=== PATIENT | female | born 1950 | race Caucasian/White ===

== ENCOUNTER 2017-03-01 01:03 | Inpatient (IN) | payer MEDICARE ==
[2017-03-01 01:18] VITALS: BMI 23.8
--- NOTE | 2017-03-01 01:49 | ED PDOC ---
Arrival/HPI - General Time Seen by Provider: 03/01/17 01:37 Historian: Family (Daughter) - Critical Care Critical Care Minutes: 30 minutes - History of Present Illness Narrative History of Present Illness (Text): 03/01/17 01:37 Irene Marcelo is a 66 year old female, whose past medical history includes colon cancer, hypertension, and thyroid surgery, who presents to the emergency department complaining of black stool since this afternoon. According to patient 's daughter, patient had an abdominal surgery at [facility] on and was transferred to a retirement rehab 3 days ago. Patient's daughter says yesterday, patient had a temperature of 103 and earlier today, patient continued to gave chills and started having melanic stools. The patient reports having no appetite but denies any vomiting or abdominal pain. At present, patient feels very weak and short of breath. Time/Duration: 24 hours Symptom Onset: Gradual Symptom Course: Unchanged Severity Level: Mild Activities at Onset: Rest Context: Other (care home) Past Medical History - Provider Review Nursing Documentation Reviewed: Yes Family/Social History - Physician Review Nursing Documentation Reviewed: Yes Family/Social History: No Known Family HX Allergies/Home Meds Allergies/Adverse Reactions: Allergies No Known Allergies Allergy (Verified 03/01/17 01:18) Review of Systems - Physician Review All systems were reviewed & negative as marked: Yes - Review of Systems Constitutional: Fevers, Night Sweats, Other (Generalized weakness) Eyes: absent: Vision Changes ENT: absent: Hearing Changes Respiratory: SOB Cardiovascular: absent: Chest Pain Gastrointestinal: Stool Changes (Black stool), Appetite Changes (No appetite). absent: Abdominal Pain, Vomiting Genitourinary Female: Other (Castro in place). absent: Urine Output Changes Musculoskeletal: absent: Arthralgias, Back Pain, Neck Pain Skin: absent: Rash Neurological: absent: Headache, Dizziness Endocrine: absent: Diaphoresis Hemo/Lymphatic: absent: Adenopathy Psychiatric: absent: Depression Physical Exam Vital Signs Reviewed: Yes Vital Signs Temp Pulse Resp BP Pulse Ox 03/01/17 05:35 98.2 F 104 H 18 117/70 03/01/17 05:05 98.3 F 107 H 18 129/64 03/01/17 04:50 99.2 F 109 H 18 132/69 03/01/17 03:47 102.2 F H 06/16/17 01:41 102.2 F H 139 H 20 84/48 L 100 03/01/17 01:04 98.8 F 139 H 20 82/48 L 100 Temperature: Febrile Blood Pressure: Hypotensive Pulse: Tachycardic Respiratory Rate: Tachypneic Appearance: Positive for: Ill-Appearing (Toxic) Mental Status: Positive for: Alert and Oriented X 3 - Systems Exam Head: Present: Atraumatic, Normocephalic Pupils: Present: PERRL Conjunctiva: Present: Other (Pale conjunctiva) Mouth: Present: Dry (oral mucous) Pharnyx: Present: Normal. No: ERYTHEMA Neck: Present: Normal Range of Motion Respiratory/Chest: Present: Decreased Breath Sounds (Decreased breath sounds on right), Other (JESENIA drain from Right thoracic or ? upper abd cavity; port in place ) Cardiovascular: Present: Normal S1, S2, Tachycardic Abdomen: Present: Distention (mild), Scars (Midline Laparotomy scar, non-tender ). No: Tenderness Rectal: Present: Melena (significant amount of melanic stool) Upper Extremity: Present: Normal Inspection. No: Cyanosis, Edema Lower Extremity: Present: Normal Inspection. No: Edema Neurological: Present: GCS=15, CN II-XII Intact, Speech Normal Skin: Present: Warm, Dry, Normal Color. No: Rashes Psychiatric: Present: Alert Medical Decision Making ED Course and Treatment: 03/01/17 01:37 Impression: 66 year old female complaining of black stool since this afternoon. Differential Diagnosis included but are not limited to: Sepsis due to Pneumonia vs. Intra-abdominal infection vs. UTI; GI Bleed is present Plan: -- EKG -- Chest X-ray -- Type and Screen -- VBG and Blood Culture -- Urinalysis and urine culture -- Vancomycin, Zosyn, and IV Fluids -- Reassess and disposition Progress Notes: 03/01/17 01:37 Rectal exam performed, with female scribe Jordana Anderson present, which resulted guaiac positive black stools. Significant amounts of melanic stool is coming out. 03/01/17 02:46 Reviewed radiology, chest x-ray shows elevated right hemidiaphragm. 03/01/17 03:56 Code Sepsis called with lactic acid of 2.1 03/01/17 06:28 Patient with noted history with sepsis and melena present, consistent with significant GI Bleed. Patient hypotensive upon my initial evaluation at 70/30; responded to IVF; BP stabilized after 2 liters of IVF; type and cross ordered; patient's daughter signed consent for transfusion. Labs with leukocytosis of 16.9 and initial Hgb of 9.1; INR is 1.37; BUN/Cr are 56/2.0. Patient started on broad spectrum abx for sepsis. Case was discussed with Dr. Vega for admission to Dr. Barton's service. Consult placed for Dr. Fernandez, with whom the case was discussed. Case discussed with Dr. Guaman, flying instructor, who accepted the patient for ICU admission. 03/01/17 06:34 CT a/p done; results to be followed by ICU. - Critical Care Critical Care Minutes: 45 minutes - Lab Interpretations Lab Results: 03/01/17 01:30 03/01/17 01:30 Lab Results 03/01/17 03:07: Blood Type Confirm A POSITIVE 03/01/17 01:53: Blood Type A POSITIVE, Antibody Screen Negative, Crossmatch See Detail, BBK History Checked No verified bt 03/01/17 01:30: Sodium 138, Chloride 107, Potassium 4.9, Carbon Dioxide 18 L, Anion Gap 18, BUN 56 H, Creatinine 2.0 H, Est GFR ( Amer) 30, Est GFR ( Non-Af Amer) 25, Random Glucose 114 H, Calcium 6.3 L*, Phosphorus 4.0, Magnesium 2.0, Total Bilirubin 0.9, AST 46 H, ALT 32, Alkaline Phosphatase 237 H , Lactate Dehydrogenase 772 H, Total Creatine Kinase 55, Troponin I 0.15 H*, NT- Pro-B Natriuret Pep 748 H, Total Protein 6.8, Albumin 3.0, Globulin 3.8, Albumin /Globulin Ratio 0.8 L, Plasma Cortisol PM Pending 03/01/17 01:30: pO2 79 H, VBG pH 7.36, VBG pCO2 32.0 L, VBG HCO3 18.1 L, VBG Total CO2 19.1 L, VBG O2 Sat (Calc) 97.6 H, VBG Base Excess -6.3 L, VBG Potassium 4.7, Sodium 136.0, Chloride 111.0 H, Glucose 120 H, Lactate 2.1, FiO2 21.0, Venous Blood Potassium 4.7 03/01/17 01:30: PT 14.8 H, INR 1.37 H, APTT 45.0 H 03/01/17 01:30: WBC 16.9 H, RBC 3.05 L, Hgb 9.1 L, Hct 27.6 L, MCV 90.5, MCH 29.8, MCHC 33.0, RDW 19.9 H, Plt Count 229, MPV 10.1, Gran % 89.9 H, Lymph % ( Auto) 6.7 L, Blackford % (Auto) 3.2, Eos % (Auto) 0.1 L, Baso % (Auto) 0.1, Gran # 15.18 H, Lymph # 1.1 L, Blackford # 0.5, Eos # 0.0, Baso # 0.01, ESR 62 H I have reviewed the lab results: Yes - RAD Interpretation Radiology Orders: 03/01/17 01:51 CHEST PORTABLE [RAD] Stat 03/01/17 04:02 ABD & PELVIS W/O PO OR IV CONT [CT] Stat - Medication Orders Current Medication Orders: Acetaminophen (Tylenol 325mg Tab) 650 mg PO Q4 PRN PRN Reason: Fever >100.4 F Pantoprazole Sodium (Protonix 40mg Ivpb) 40 mg in 100 mls @ 20 mls/hr IV .Q5H JEAN CARLOS PRN Reason: 8 MG/HR Levothyroxine Sodium (Synthroid) 67.5 mcg IVP DAILY JEAN CARLOS Discontinued Medications Acetaminophen (Tylenol 325mg Tab) 975 mg PO STAT STA Stop: 03/01/17 02:41 Last Admin: 03/01/17 03:47 Dose: Not Given Non-Admin Reason: Patient Refused Acetaminophen (Tylenol 160mg/5ml Oral Soln) Confirm Administered Dose 480 mg .ROUTE .STK-MED ONE Stop: 03/01/17 03:01 Last Admin: 03/01/17 03:48 Dose: 480 mg Acetaminophen (Tylenol 160mg/5ml Oral Soln) Confirm Administered Dose 480 mg .ROUTE .STK-MED ONE Stop: 03/01/17 03:02 Last Admin: 03/01/17 03:48 Dose: Sodium Chloride 2,070 ml/ IV (SUPPLIES) 2,070 mls @ 4,136.76 mls/hr IV ONCE ONE PRN Reason: 60 ML/KG/HR Stop: 03/01/17 01:52 Last Admin: 03/01/17 02:41 Dose: 4,136.76 mls/hr Vancomycin HCl (Vancomycin 1gm) 1 gm in 250 mls @ 133.333 mls/hr IVPB STAT STA PRN Reason: Protocol Stop: 03/01/17 03:47 Last Admin: 03/01/17 02:42 Dose: 133.333 mls/hr Piperacillin Sod/Tazobactam Sod (Zosyn 3.375 In Ns 100ml) 100 mls @ 200 mls/hr IVPB STAT STA PRN Reason: Protocol Stop: 03/01/17 02:22 Last Admin: 03/01/17 02:00 Dose: 200 mls/hr Pantoprazole Sodium 80 mg/ (Sodium Chloride) 100 mls @ 10 mls/hr IV .Q10H JEAN CARLOS PRN Reason: 8 MG/HR Last Admin: 03/01/17 04:15 Dose: 10 mls/hr Pantoprazole Sodium 40 mg/ (Sodium Chloride) 100 mls @ 20 mls/hr IV .Q10H JEAN CARLOS PRN Reason: 8 MG/HR Pantoprazole Sodium (Protonix Inj) 80 mg IVP STAT STA Stop: 03/01/17 04:03 Last Admin: 03/01/17 04:15 Dose: 80 mg Pantoprazole Sodium (Protonix Inj) Confirm Administered Dose 80 mg .ROUTE .STK- MED ONE Stop: 03/01/17 04:08 Last Admin: 03/01/17 05:03 Dose: - Scribe Statement The provider has reviewed the documentation as recorded by the Martin Anderson Provider Scribe Attestation: All medical record entries made by the lAlyibfrancheska were at my direction and personally dictated by me. I have reviewed the chart and agree that the record accurately reflects my personal performance of the history, physical exam, medical decision making, and the department course for this patient. I have also personally directed, reviewed, and agree with the discharge instructions and disposition. Disposition/Present on Arrival - Present on Arrival Any Indicators Present on Arrival: No - Disposition Have Diagnosis and Disposition been Completed?: Yes Diagnosis: Sepsis, GI bleed Disposition: HOSPITALIZED Disposition Time: 04:15 Patient Plan: Admission, ICU Patient Problems: Current Active Problems Problem Status Onset GI bleed Acute Sepsis Acute Condition: CRITICAL
[2017-03-01] MEDS ORDERED: Piperacillin/Tazobact 3.375 gm 100 ML IVPB STA (01:53)
[2017-03-01] MEDS ORDERED: Vancomycin 1gm in NS 250ml 1 GM/250 ML BAG IVPB STA (01:55)
[2017-03-01 02:13] LABS: ADD MANUAL DIFF? NO
[2017-03-01 02:19] LABS: VENOUS BLOOD GAS BASE EXCESS -6.3 mmol/L (0.0-2.0); VENOUS BLOOD PH 7.36 (7.32-7.43)
[2017-03-01 02:29] LABS: BASO # 0.01 K/mm3 (0.0-2.0); BASO % 0.1 % (0.0-3.0); EOS % 0.1 % (1.5-5.0); GRAN # 15.18 (1.4-6.5); GRAN % 89.9 % (50.0-68.0); HEMATOCRIT 27.6 % (36.0-48.0); LYMPH # 1.1 (1.2-3.4); LYMPH % 6.7 % (22.0-35.0); MEAN CELL VOLUME 90.5 fL (80.0-105.0); MEAN CORPUSCULAR HEMOGLOBIN 29.8 pg (25.0-35.0); MEAN PLATELET VOLUME 10.1 fl (7.0-11.0); MONO # 0.5 (0.1-0.6); MONO % 3.2 % (1.0-6.0); PLATELET COUNT 229 10^3/uL (120.0-450.0); RED CELL DISTRIBUTION WIDTH 19.9 % (11.5-14.5); WHITE BLOOD COUNT 16.9 10^3/ul (4.5-11.0)
[2017-03-01 02:39] LABS: INR 1.37 (0.93-1.08)
[2017-03-01 02:52] LABS: ALB/GLOB RATIO 0.8 (1.1-1.8); BILIRUBIN,TOTAL 0.9 mg/dL (0.2-1.3); POTASSIUM 4.9 mmol/L (3.6-5.0); TOTAL PROTEIN 6.8 g/dL (5.8-8.3)
[2017-03-01] MEDS ORDERED: Acetaminophen 160 mg/5 ml UD ONE (03:01)
[2017-03-01 03:30] LABS: CALCIUM 6.3 mg/dL (8.4-10.5)
[2017-03-01 03:37] LABS: ERYTHROCYTE SEDIMENTATION RATE 62 mm/hr (0.0-20.0)
[2017-03-01] MEDS: Acetaminophen 160 mg/5 ml UD ONE (03:48)
[2017-03-01 03:52] LABS: TROPONIN I 0.15 ng/mL
[2017-03-01] MEDS ORDERED: Pantoprazole 40 MG in Sodium Chloride 0.9% 100 ML IV SCH (04:15)
[2017-03-01] MEDS ORDERED: Pantoprazole 80 MG in Sodium Chloride 0.9% 100 ML IV SCH (04:15)
[2017-03-01] MEDS ORDERED: Pantoprazole 40mg/100ml IVPB 40 MG/100 ML BAG IV SCH (04:15)
--- NOTE | 2017-03-01 04:44 | CP.PCM.CON ---
<JessicaEliodanaLarry wallis - Last Filed: 03/01/17 04:40> History of Present Illness - History of Present Illness History of Present Illness: CC: Melanotic stools HPI: This is a 66yo F w/ a PMhx of Stage 4 Colon CA, originally diagnosed 10 years ago, s/p resection on February 08 for mets at [facility], presumed pleurex drainage catheter for recurrent pleural effusions, and indwelling jerez who is coming in for 2-3 episodes of melanotic stool associated with vomiting. Patient has felt feverish with concurrent chills for the past day, also short of breath just not feeling like herself. She is denying any ADRIAN, CP, abdominal pain, dysuria/freq/urg (has an indwelling catheter). Pmhx: Colon CA (unknown stage), Diverticulitis Surgeries: Colon Resection for Colon CA, knee replacements, on active chemotherapy unknown which ones Meds: unobtainable at this time FamHx: denies Social: prior cigarette smoker, denies EtOH, denies illicit drugs Allergies: denies Past Patient History - Past Social History Smoking Status: Former Smoker - CARDIAC Hx Cardiac Disorders: Yes Hx Hypertension: Yes - PULMONARY Hx Respiratory Disorders: No - NEUROLOGICAL Hx Neurological Disorder: No - HEENT Hx HEENT Problems: No - RENAL Hx Chronic Kidney Disease: No - ENDOCRINE/METABOLIC Other/Comment: Thyriod problem. Takes medicine for thyriod - HEMATOLOGICAL/ONCOLOGICAL Hx Cancer: Yes (Colon CA) Hx Chemotherapy: Yes - INTEGUMENTARY Hx Dermatological Problems: No - MUSCULOSKELETAL/RHEUMATOLOGICAL Hx Musculoskeletal Disorders: No - GENITOURINARY/GYNECOLOGICAL Hx Genitourinary Disorders: No - PSYCHIATRIC Hx Substance Use: No - SURGICAL HISTORY Hx Cholecystectomy: Yes Hx Joint Replacement: Yes - ANESTHESIA Hx Anesthesia Reactions: No Meds Allergies/Adverse Reactions: Allergies Allergy/AdvReac Type Severity Reaction Status Date / Time No Known Allergies Allergy Verified 03/01/17 01:18 - Medications Medications: Current Medications Pantoprazole Sodium (Protonix 40mg Ivpb) 40 mg in 100 mls @ 20 mls/hr IV .Q5H JEAN CARLOS PRN Reason: 8 MG/HR Physical Exam - Constitutional Appears: No Acute Distress - Head Exam Additional comments: balding - Eye Exam Eye Exam: EOMI, Normal appearance - ENT Exam ENT Exam: Mucous Membranes Dry. absent: Mucous Membranes Moist - Neck Exam Neck exam: Positive for: Full Rom. Negative for: Lymphadenopathy - Respiratory Exam Additional comments: crackles in b/l bases - Cardiovascular Exam Cardiovascular Exam: Tachycardia, REGULAR RHYTHM - GI/Abdominal Exam Additional comments: jitendra in the midline; pleurex catheter in place with 30cc of pleural fluid, no obvious signs of pus or infection - Rectal Exam Rectal Exam: Deferred - Extremities Exam Extremities exam: Positive for: pedal edema. Negative for: calf tenderness - Back Exam Back exam: absent: CVA tenderness (L), CVA tenderness (R) - Neurological Exam Neurological exam: Alert, Oriented x3 - Psychiatric Exam Psychiatric exam: Normal Affect - Skin Skin Exam: Intact Results - Vital Signs Recent Vital Signs: Last Vital Signs Temp 102.2 F H 03/01/17 03:47 Pulse 139 H 03/01/17 01:41 Resp 20 03/01/17 01:41 BP 84/48 L 03/01/17 01:41 Pulse Ox 100 03/01/17 01:41 - Labs Result Diagrams: 03/01/17 01:30 03/01/17 01:30 Assessment & Plan - Assessment and Plan (Free Text) Assessment: 66yo F admitted to the ICU for Severe Sepsis w/ Multiple Organ Dysfunction 2/2 to unknown Infection Neuro -no active issues; patient is ANOx3 and responding appropriately to questions -no obvious neurological deficits Pulm -maintain O2 sat above 90%; patient not complaining of SOB -Chest X-ray clear; posisble Pleurex catheter in place for drainage of pleural fluid Cardio -Maintain MAP above 65 -patient responded to 2L of NS bolus -bump in troponin most likely 2/2 to demand ischemia Renal -presumed LONG 2/2 to sepsis/dehydration -rehydration -patient is making adequate urine; dark/cloudy in color; f/u UA; f/u CMP GI -Rectal exam revealed +guiac, patient complaining of melena -two PRBC ordered; CBC Q6H -On Protonix Drip -GI consult; Jim; appreciate recs Heme -HbG currently 9.1; unknown baseline -will monitor CBC Q6H ID -received Vanc and Zosyn in ED; will continue -ID consult; Dr. Banks for continued antibiotics Psych No Active issues Case discussed and seen with Dr. Deniz Felipe PGY1 Night Float <Alonso Guaman Q - Last Filed: 03/01/17 05:14> Meds - Medications Medications: Current Medications Acetaminophen (Tylenol 325mg Tab) 650 mg PO Q4 PRN PRN Reason: Fever >100.4 F Pantoprazole Sodium (Protonix 40mg Ivpb) 40 mg in 100 mls @ 20 mls/hr IV .Q5H JEAN CARLOS PRN Reason: 8 MG/HR Levothyroxine Sodium (Synthroid) 67.5 mcg IVP DAILY JEAN CARLOS Results - Vital Signs Recent Vital Signs: Last Vital Signs Temp 99.2 F 03/01/17 04:50 Pulse 109 H 03/01/17 04:50 Resp 18 03/01/17 04:50 BP 132/69 03/01/17 04:50 Pulse Ox 100 03/01/17 01:41 - Labs Result Diagrams: 03/01/17 01:30 03/01/17 01:30 Attending/Attestation - Attestation I have personally seen and examined this patient.: Yes I have fully participated in the care of the patient.: Yes I have reviewed all pertinent clinical information: Yes Notes (Text): 03/01/17 05:08 I agree with the above mentioned note and exam by Dr. Whitehead with the addition/ exception of the followin y.o female with a PMHx Colon Ca (initially dx'ed and treated with chemo and surgery 10yrs ago) was brought to the ED from [facility] re[facility] for an episode of melena. As per my conversation with the patient's daughter Tomasa, she reports that her mother underwent removal of a "mass on the liver" which was reported to her as a recurrence of her colon cancer on 02/05. At that time she also had removal of the gallbladder, part of the liver as well as a partial colectomy with end-to-end anastamoses. She remained in the hospital until 02/23 when she was transferred to a [facility] facility. The daughter reports it is there where her mother began experiencing fevers and chills along with loose watery bowel movements along with episodes of NBNB vomiting x 3 days. Last night is when she had an episode of dark black stool so she was brought to the ED here at [facility] as opposed to where she was previously because her daughter felt more comfortable having her brought here. In the ED she is found to have severe sepsis, she is responsive to IVF; she is kept NPO and will be further worked up for her dark stool. ED Physician has already ordered 2 units of PRBC, she will stay on a protonix drip and be evaluated by GI for further management. She has severe sepsis with multi-organ involvement, however the exact source of her sepsis has not been identified at this time; I susect acute cystitis due to dark brown cloudy urine present within her jerez catheter bag, however I will also follow up the results of the CT Abd/Pelvis to evaluate for any further possible causes. Case discussed with her daughter Tomasa and Dr. Best in the ED at length all labs and images available to myself thus far have been reviewed total time of care: 45 minutes
[2017-03-01 05:16] LABS: VENOUS BLOOD GAS BASE EXCESS -7.8 mmol/L (0.0-2.0); VENOUS BLOOD PH 7.32 (7.32-7.43)
[2017-03-01 06:52] LABS: URINE BILIRUBIN NEGATIVE (NEGATIVE); URINE BLOOD LARGE (NEGATIVE); URINE KETONE TRACE mg/dL (NEGATIVE); URINE LEUKOCYTE ESTERASE LARGE Leu/uL (NEGATIVE); URINE PROTEIN 100 mg/dL (<30 mg/dL); URINE UROBILINOGEN 0.2 E.U./dL (<1 E.U./dL)
--- NOTE | 2017-03-01 06:55 | CT ---
EXAM: CT Abdomen and Pelvis Without Intravenous Contrast CLINICAL HISTORY: 66 years old, female; Signs and symptoms; Other: Black stool; Prior surgery; Additional info: Sepsis; Post op abd surgery TECHNIQUE: Axial computed tomography images of the abdomen and pelvis without intravenous contrast. This CT exam was performed using one or more of the following dose reduction techniques: automated exposure control, adjustment of the mA and/or kV according to patient size, and/or use of iterative reconstruction technique. Coronal and sagittal reformatted images were created and reviewed. EXAM DATE/TIME: 03/01/2017 4:02 AM COMPARISON: No relevant prior studies available. FINDINGS: Cardiomegaly. Pericardial effusion measuring 10 mm. Trace bilateral pleural effusions. Right lower lung consolidation. Heterogeneous air collection in the hepatic dome. A percutaneous pigtail catheter enters the collection. There is a faint 1.2 cm hypoattenuating right renal lesion probable cyst. Fullness of the left kidney. No definite obstructing calculi are identified although motion and haziness in the deep pelvis makes it slightly difficult to visualize the very distal left ureter. There are numerous pelvic phleboliths. Castro catheter. Air in urinary bladder. Midline skin jitendra stranding the underlying fat. Surgical sutures within bowel loops in the right abdomen and deep pelvis. Small hyperdensity in the gastric lumen possible pill or calcification. Small bowel herniated between the abdominis rectus muscles. No bowel obstruction. Fluid within multiple small bowel loops and within portions of the colon which could be incidental finding although can also be associated with an enteritis/diarrhea The spleen and pancreas appear grossly normal on this non-contrast study. IMPRESSION: Cardiomegaly and pericardial effusion. Right lower lung consolidation. Percutaneous catheter entering heterogeneous air collection in the liver. Evidence of bowel surgery. Fluid in the bowel as discussed above. Fullness of the left kidney. Correlation with urinalysis may be helpful to exclude infectious/inflammatory process. Please note that there are no prior studies or prior reports provided.
[2017-03-01 07:03] LABS: URINE APPEARANCE CLOUDY (CLEAR); URINE COLOR YELLOW (YELLOW)
[2017-03-01 07:04] LABS: URINE BACTERIA MOD (NEG); URINE GLUCOSE (UA) NEGATIVE (NEGATIVE); URINE WBC 15 - 20 /hpf (0-6)
[2017-03-01] MEDS ORDERED: Piperacillin/Tazobact 3.375 gm 100 ML IVPB SCH (08:00)
[2017-03-01] MEDS ORDERED: Meropenem 1g/NS 100mL IVPB 1 GM/100 ML PIGGYBACK IVPB SCH (08:30)
--- NOTE | 2017-03-01 09:15 | RAD ---
HISTORY: Sepsis Patient COMPARISON: No prior. FINDINGS: LUNGS: No active pulmonary disease. PLEURA: No significant pleural effusion identified, no pneumothorax apparent. CARDIOVASCULAR: Normal. OSSEOUS STRUCTURES: No significant abnormalities. VISUALIZED UPPER ABDOMEN: Normal. OTHER FINDINGS: Right-sided Port-A-Cath. Pigtail catheter at right lung base IMPRESSION: No active disease.
[2017-03-01 09:31] LABS: HEMATOCRIT 26.5 % (36.0-48.0); MEAN CELL VOLUME 89.5 fL (80.0-105.0); MEAN CORPUSCULAR HEMOGLOBIN 29.1 pg (25.0-35.0); MEAN CORPUSCULAR HGB CONC 32.5 g/dl (31.0-37.0); MEAN PLATELET VOLUME 9.2 fl (7.0-11.0); RED CELL DISTRIBUTION WIDTH 18.4 % (11.5-14.5); WHITE BLOOD COUNT 13.6 10^3/ul (4.5-11.0)
[2017-03-01] MEDS: Levothyroxine 100 mcg (0.1 mg) Inj IVP SCH (10:06)
--- NOTE | 2017-03-01 10:28 | HP ---
HISTORY OF PRESENT ILLNESS: I was called on her with dark stools, sent to the Emergency Room. She w as just in [facility] for colon resection for colon cancer and she is status post surgery, n ow we are worried about a GI bleed. She had a 103 temperature a few days ago with chills and now wit h bloody stools, melena. PAST MEDICAL HISTORY: She has a past medical history that includes colon cancer, hypertension, thyro id disease. She is very weak. She appears septic at this time. She was diagnosed with colon cancer about 10 years ago. She had a resection on 02/08/2017 at [facility]. PleurX drainage catheter for recur rent pleural effusions. She has an indwelling Castro, black stools, some nauseousness and vomiting. Colon cancer, diverticulitis. PAST SURGICAL HISTORY: Colon resection, knee replacements, she is on active chemotherapy. SOCIAL HISTORY: She used to smoke cigarettes. No alcohol, no drugs, no allergies. She is a former smoker. She had hypertension in the past. MEDICATIONS: She takes Synthroid for thyroid problems. She is on chemotherapy. Cholecystectomy and knee replacements. ALLERGIES: No known drug allergies. REVIEW OF SYSTEMS: She is having fevers, night sweats. She was on antibiotics in the custodial. No changes in vision or hearing. There is shortness of breath, occasional cough. No chest pain. T he stools started black about 24 hours ago. She has very little appetite. No abdominal pain. Castro is in place. She is comfortable with no back pain or joint pains. No rashes. No headaches or dizz iness. There is sweating. Not depressed. Not anxious. PHYSICAL EXAMINATION: VITAL SIGNS: She has a 102.2 temp, 139 pulse, 20 respiratory rate, 84/48 blood pressure, 100% O2 sat on oxygen. GENERAL: She is febrile, hypotensive, tachycardic, ill appearing, toxic, alert and oriented x 3. HEENT: Head is atraumatic, normocephalic. Pupils equal, reactive to light. Throat is dry. NECK: Supple. HEART: Regular rate. Normal S1, S2. LUNGS: Decreased breath sounds bilaterally. Some congestion, decreased breath sounds. ABDOMEN: Mildly distended. There are scars; laparotomy scars. Decreased bowel sounds. Stools with out melena. EXTREMITIES: Have no edema. NEUROLOGIC: GCS is 15. Cranial nerves II-XII grossly intact. SKIN: Warm and dry. NEUROLOGIC: She is alert. No palpable lymphadenopathy appreciated. Thyroid midline. LABORATORY DATA: She had multiple tests done. She had a CAT scan of the abdomen and pelvis that navya wed cardiomegaly, pericardial effusion, right lower lung consolidation, percutaneous catheter, eviden ce of bowel surgery, fullness of the kidney, possible infection. She has a 16.9 white count, 9.1 hem oglobin, 27.6 hematocrit with 229 platelets. INR is 1.37. She has a pH of 7.32, 138 sodium, potassi um 4.9, BUN 56, creatinine 2, GFR is 25, calcium 6.3. Sugar is 114, phosphorus is 4, magnesium 2. T otal bili is 0.9, AST is 46, alkaline phosphatase 237. Troponin is elevated at 0.15. BNP is 748. T otal protein 6.8. Urine is large leukocytes, moderate bacteria. ASSESSMENT AND PLAN: She has multiple issues, GI bleed, positive troponin, UTI, status post colon viveros rgery for cancer. She is very weak. I believe she is possibly septic. We will call in infectious d isease, cardiology, GI, might also call in pulmonary. She is in the intensive care unit. We will be very aggressive with her care. Check her labs tomorrow, IV antibiotics, watch to see if she might n eed a transfusion. Wily Barton DO cc: [id number] TT: 03/01/2017 10:27:35 sherman
--- NOTE | 2017-03-01 11:25 | CON ---
DATE: 03/01/2017 REASON FOR CONSULTATION: Abnormal CAT scan. REFERRING PHYSICIAN: Dr. Barton. History is obtained via extensive discussion with the ICU nurse. I have also reviewed the chart at length, and discussed the case with the patient at length. The patient is a 66-year-old female with past medical history significant for advanced/stage IV colon cancer, status post extensive surgery at [facility] on for metastatic disease(the patient had removal of a liver metastasis, removal of her gallbladder, and partial colectomy), right pleural effusion, status post multiple drainage procedures, who presents to [facility] with fevers and chills, along with nausea and vomiting and loose watery bowel movements for the past day. The patient's stool was also noted to be melanotic in nature. She was thus admitted for additional evaluation and treatment. Again, I did discuss the case with the ICU nurse at length. There is no history of significant shortness of breath, cough, or sputum production. There is also no history of chest pain, coughing up of blood or chest pain - made worse with deep respirations. As stated above, the patient did present with fevers and chills. No known infectious exposure. No history of night sweats. The patient has a history of weight loss with decreased appetite as of recent. No history of leg or calf pains. No history of syncope or diaphoresis. No history of recent travel or trauma. REVIEW OF SYSTEMS: No acute urinary symptoms. No new musculoskeletal complaints. Rest of review of systems is negative. ALLERGIES: No known allergies. SOCIAL HISTORY: Positive for tobacco, negative for alcohol. FAMILY HISTORY: No inheritable diseases. HOME MEDICATIONS: Not listed in the computer at the present time. PHYSICAL EXAMINATION: GENERAL: The patient appears comfortable at rest. She is not short of breath. VITAL SIGNS: Temperature is 98.2, pulse 97, respirations 19, blood pressure 95/ 49. T-max - 102.2. Oxygen saturation--nasal canula--100%. HEENT: Normocephalic, atraumatic. NECK: No JVD. CARDIOVASCULAR: Positive S1, S2. No S3. LUNGS: Decreased breath sounds at the bases. No rhonchi or wheezing. EXTREMITIES: Mild edema. No cyanosis, no clubbing. Calves are nontender to palpation. GASTROINTESTINAL: The patient is status post extensive abdominal surgery. There is a liver drain in place. There are jitendra in place. The patient's abdomen is slightly distended, but nontender to palpation. Bowel sounds are positive. SKIN: No acute rash. NEUROLOGIC: Limited at the present time. PERTINENT LABORATORY DATA: Abdominal and pelvic CAT scan was done and reviewed. There is a small right basal consolidation consistent with atelectasis. There are also very small bilateral pleural effusions. Chest x- ray was also done. There is minimal atelectasis(linear) noted at the right base. There are no significant effusions noted. Complete metabolic profile: Carbon dioxide 18, BUN 56, creatinine 2.0, glucose 114, calcium 6.3. AST 46, alkaline phosphatase 237. LDH 772. Troponin 0.15. B-type natriuretic peptide 748. Rest of the metabolic profile is within normal limits. CBC: White count 16.9, hemoglobin 9.1, hematocrit 27.6, platelets of 229. IMPRESSION: 1. Sepsis syndrome. 2. Gastrointestinal bleeding. 3. Advanced, stage IV colon cancer. 4. Status post recent extensive surgery at [facility]. 5. Minimal atelectasis - right base. 6. Small bilateral pleural effusions. 7. Anemia. 8. Renal insufficiency. PLAN: Again, I did discuss the case with the ICU nurse at length. I have also reviewed the chart at length, and discussed the case with the patient at length. The patient presents to [facility] - transferred from the subacute rehab institution - with main complaints of fevers and chills, along with nausea, vomiting and loose stools for the past day. As above, the stools are melanotic in nature. As above, the patient is status post extensive surgery at [facility] on 02/08/2017 - where she had removal of a liver metastasis, removal of her gallbladder, and partial colectomy. At this point in time, there are no significant pulmonary symptoms. I did review the CAT scan of the lower chest/ abdomen. There is a minimal consolidation at the right base most consistent with atelectasis. There are also small bilateral pleural effusions noted. The patient does have a history of repeated drainage procedures of the right pleural cavity. On physical exam, there is no significant bronchospasm noted. In addition, there is no significant alveolar arterial gradient. Oxygen saturation on nasal cannula is 100%. I will order incentive spirometry, as well as aspiration precautions. I will also check a repeat chest x-ray - tomorrow - for comparison. Consultations for infectious disease, GI, and cardiology are ordered. I would also consider a surgical evaluation at this point in time - given the recent proximity to her extensive surgery. Bleeding scan has also been ordered. Unfortunately, the overall status/prognosis for this patient is very guarded/ poor. I did discuss the above with Dr. Barton at length. I will also discuss the above with the entire ICU team in the next few moments. Thank you very much for this pulmonary consultation. Ciaran Whelan MD cc: [id number] TT: 03/01/2017 11:25:12 Confirmation # [id number] Dictation # [id number] mn [id number]
--- NOTE | 2017-03-01 11:33 | CP.PCM.CON ---
History of Present Illness - History of Present Illness History of Present Illness: 66 year old female with PMH of stage 4 colon cancer, S/P colon resection at [facility] Feb 08 2017, probable recurrent pleural effusions S/P pleurex catheter placement, indwelling Castro catheter, history of diverticulitis was brought in to [facility] because of melanotic stools for the past 2-3 days associated with nausea and vomiting.. She was recently in [facility] for treatment of colon cancer and had surgery as detailed above. She also was noted to have fever in the ED. CT abdomen and pelvis was done in the ED which showed possible enteritis and colitis and right lower lobe consolidation. The patient denies headache or dizziness, no chest pain, no SOB, no diarrhea, no dysuria. Infectious diseases consult is requested to further evaluate and manage. Review of Systems - Review of Systems All systems: reviewed and no additional remarkable complaints except (as per HPI ) Past Patient History - Past Social History Smoking Status: Former Smoker - CARDIAC Hx Cardiac Disorders: Yes Hx Hypertension: Yes - PULMONARY Hx Respiratory Disorders: No - NEUROLOGICAL Hx Neurological Disorder: No - HEENT Hx HEENT Problems: No - RENAL Hx Chronic Kidney Disease: No - ENDOCRINE/METABOLIC Other/Comment: Thyriod problem. Takes medicine for thyriod - HEMATOLOGICAL/ONCOLOGICAL Hx Cancer: Yes (Colon CA) Hx Chemotherapy: Yes - INTEGUMENTARY Hx Dermatological Problems: No - MUSCULOSKELETAL/RHEUMATOLOGICAL Hx Musculoskeletal Disorders: No - GENITOURINARY/GYNECOLOGICAL Hx Genitourinary Disorders: No - PSYCHIATRIC Hx Substance Use: No - SURGICAL HISTORY Hx Cholecystectomy: Yes Hx Joint Replacement: Yes - ANESTHESIA Hx Anesthesia Reactions: No Meds Allergies/Adverse Reactions: Allergies Allergy/AdvReac Type Severity Reaction Status Date / Time No Known Allergies Allergy Verified 03/01/17 01:18 - Medications Medications: Current Medications Acetaminophen (Tylenol 325mg Tab) 650 mg PO Q4 PRN PRN Reason: Fever >100.4 F Pantoprazole Sodium (Protonix 40mg Ivpb) 40 mg in 100 mls @ 20 mls/hr IV .Q5H JEAN CARLOS PRN Reason: 8 MG/HR Piperacillin Sod/Tazobactam Sod (Zosyn 3.375 In Ns 100ml) 100 mls @ 200 mls/hr IVPB Q8H JEAN CARLOS PRN Reason: Protocol Stop: 03/01/17 16:29 Levothyroxine Sodium (Synthroid) 67.5 mcg IVP DAILY JEAN CARLOS Physical Exam - Constitutional Appears: Chronically Ill - ENT Exam ENT Exam: Mucous Membranes Moist - Neck Exam Neck exam: Negative for: Lymphadenopathy, Meningismus - Respiratory Exam Respiratory Exam: Decreased Breath Sounds - Cardiovascular Exam Cardiovascular Exam: +S1, +S2 - GI/Abdominal Exam GI & Abdominal Exam: Soft. absent: Tenderness Results - Vital Signs Recent Vital Signs: Last Vital Signs Temp 98.3 F 03/01/17 05:51 Pulse 105 H 03/01/17 05:51 Resp 16 03/01/17 05:51 BP 97/48 L 03/01/17 05:51 Pulse Ox 100 03/01/17 05:51 - Labs Result Diagrams: 03/01/17 09:18 03/01/17 01:30 Labs: Laboratory Results - last 24 hr 03/01/17 03/01/17 04:48 06:20 pO2 161 H VBG pH 7.32 VBG pCO2 34.0 L VBG HCO3 17.5 L VBG Total CO2 18.5 L VBG O2 Sat (Calc) 100.0 H VBG Base Excess -7.8 L VBG Potassium 4.5 Sodium 138.0 Chloride 116.0 H Glucose 138 H Lactate 1.1 FiO2 21.0 Venous Blood Potassium 4.5 Urine Color Yellow Urine Appearance Cloudy Urine pH 6.0 Ur Specific [place] 1.015 Urine Protein 100 H Urine Glucose (UA) Negative Urine Ketones Trace H Urine Blood Large H Urine Nitrate Negative Urine Bilirubin Negative Urine Urobilinogen 0.2 Ur Leukocyte Esterase Large H Urine RBC 2 - 5 Urine WBC 15 - 20 Ur Epithelial Cells 1 - 3 Urine Bacteria Mod Assessment & Plan - Assessment and Plan (Free Text) Plan: Assessment Systemic Inflammatory Response Syndrome, R/O sepsis due to enteritis/ colitis in a patient who is presenting with melena and just underwent surgery for colon cancer last month stage 4 colon cancer, S/P colon resection at [facility] Feb 08 2017 probable recurrent pleural effusions S/P pleurex catheter placement indwelling Castro catheter history of diverticulitis chronic renal failure Plan Started the patient on a dose of IV Vancomycin and Merrem pending blood cx; reviewed CT abdomen and pelvis and discussed with Dr. Whelan - right lower lobe is probably more atelectasis
[2017-03-01] MEDS: Dextrose 5%/0.9% NS 1,000 ML IV SCH (15:12)
--- NOTE | 2017-03-01 15:46 | CON ---
DATE: 03/01/2017 Seen and examined in ICU earlier this morning. The chart was reviewed. REQUEST FOR CONSULT: For GI bleed. HISTORY OF PRESENT ILLNESS: This is a 66-year-old female with a past medical history of stage IV col on cancer, status post colon resection at [facility] on 02/08/2017. She also has history of recurrent ple ural effusion, status post PleurX catheter placement. The patient was brought to the Emergency Room from [facility] for reports of fever and melenotic stools. The patient is lethargic, but is easily arousable, able to answer a few questions. The patient states that she was noted to have dark stools, melanotic stools yesterday and also had some nausea and vomiting, but no reports of any heme temesis. She does complain of abdominal pain. No reports of any shortness of breath or chest pain. Denies any diarrhea. Her last endoscopy and colonoscopy was about a year ago at [facility]. She recalls having colon polyps. Does not recall any acute findings on endoscopy. She reports that the surgeon at [facility] that performed her surgery was a Dr. Dan. On admission, she was found to have hemoglobi n at 9.1 and she received a unit of packed RBCs. She also had a CAT scan done on admission and this reported percutaneous catheter entering heterogeneous air collection in the liver. The patient is no tom to have some small bowel loops within the portion of the colon, possible enteritis or diarrhea. The patient is reported to not have had any episodes of melanotic stools since admission. PAST MEDICAL HISTORY: As stated above, stage IV cancer, diverticulitis history. The patient is on a ctive chemotherapy. Hypertension. PAST SURGICAL HISTORY: She had a colon resection for colon cancer recently, 02/08, at [facility]. The srinivas barrett has a presumed PleurX drainage catheter for recurrent pleural effusions. Knee replacement. SOCIAL HISTORY: The patient was a former smoker. Denies any alcohol or recreational drugs. FAMILY HISTORY: Noncontributory at this time. MEDICATIONS: Reviewed as per NOV. ALLERGIES: No known drug allergies. VITAL SIGNS: Temperature is 98.2, blood pressure is 109/64, pulse 94, respirations 22, 100 O2 satura tion. LABORATORY DATA: WBC is 13.6 (this is from 9:18 a.m.), hemoglobin is 8.6, hematocrit 26.5, platelets are 145. PT is 14.8, INR is 1.37, PTT 45. Sodium 138, K 4.9, BUN 56, creatinine is 2.0, calcium 6. 3. Her total bilirubin is 0.9, AST 46, ALT 32, alkaline phosphatase is 237, and LDH is 772. Troponi n is 0.15. CRP is greater than 15.0. BNP 748. She had a repeat troponin at 9:18 and it was 0.10. The patient had a chest x-ray on admission and that was negative for pulmonary disease. No pleural e ffusion and no pneumothorax. Shows right-sided Port-A-Cath and a pigtail catheter at the right lung base. PHYSICAL EXAMINATION: HEENT: Sclerae are anicteric. NECK: Supple. CARDIAC: S1, S2. LUNGS: With decreased breath sounds at the bases. No rales or wheeze. ABDOMEN: With bowel sounds. Soft. She has surgical incision on abdomen with jitendra that open to a ir; no drainage noted. She also has a catheter in the right upper quadrant. Did not notice any bloo d. She did have some tenderness near the PleurX catheter site. No rebound, guarding, or organomegal y. EXTREMITIES: Positive pulses with bilateral edema. No calf tenderness. NEUROLOGIC: The patient looks lethargic but is easily arousable and is oriented. RECTAL: No palpable mass. There was minimal liquid stool, appeared dark. No bright red blood. ASSESSMENT: This is a 66-year-old female with a history of stage IV colon cancer, status post resect ion recently on 02/08 at [facility], has pleural drainage cat heter for recurrent pleural effusion. Came to the Emergency Room with episodes of melanotic stool, v omiting and found to have fever. The patient with a gastrointestinal bleed, positive troponin, urina ry tract infection; rule out enteritis, colitis; history of diverticulitis. PLAN: Request for surgical consult. Transfuse as necessary. The patient is going to get another un it of blood. Continue IV antibiotics as per ID. Continue PPI, on Protonix 40 IV q. 12. CBC q. 6 ho urs. Reach out to surgical team at [facility] and recommend bleeding scan. Thank you for this consult and for allowing us to participate in your patient's care. Will make furt her recommendations based upon the patient's clinical course. The patient was seen and case discusse d with Dr. Fernandez. Vanessa ROTHMAN cc: [id number] TT: 03/01/2017 15:45:37 Confirmation # [id number] Dictation # [id number] mn
[2017-03-01] MEDS ORDERED: Pneumococcal 23-Valent Vaccine IM ONE (16:01)
[2017-03-01 16:02] LABS: HEMATOCRIT 25.1 % (36.0-48.0); MEAN CELL VOLUME 89.3 fL (80.0-105.0); MEAN CORPUSCULAR HEMOGLOBIN 29.2 pg (25.0-35.0); MEAN CORPUSCULAR HGB CONC 32.7 g/dl (31.0-37.0); MEAN PLATELET VOLUME 8.7 fl (7.0-11.0); RED CELL DISTRIBUTION WIDTH 19.3 % (11.5-14.5); WHITE BLOOD COUNT 11.8 10^3/ul (4.5-11.0)
[2017-03-01] MEDS: Meropenem 1g/NS 100mL IVPB 1 GM/100 ML PIGGYBACK IVPB SCH (21:31)
[2017-03-01 22:15] LABS: MEAN CELL VOLUME 89.9 fL (80.0-105.0); MEAN CORPUSCULAR HEMOGLOBIN 28.8 pg (25.0-35.0); MEAN PLATELET VOLUME 8.7 fl (7.0-11.0); WHITE BLOOD COUNT 10.6 10^3/ul (4.5-11.0)
[2017-03-02] MEDS: Dextrose 5%/0.9% NS 1,000 ML IV SCH ×2 (00:28→11:32)
[2017-03-02 06:44] LABS: ADD MANUAL DIFF? NO
[2017-03-02 06:45] LABS: BASO # 0.03 K/mm3 (0.0-2.0); BASO % 0.3 % (0.0-3.0); EOS # 0.7 (0.0-0.7); EOS % 7.1 % (1.5-5.0); GRAN # 7.02 (1.4-6.5); GRAN % 69.1 % (50.0-68.0); HEMATOCRIT 25.5 % (36.0-48.0); LYMPH # 1.4 (1.2-3.4); LYMPH % 13.7 % (22.0-35.0); MEAN CELL VOLUME 89.2 fL (80.0-105.0); MEAN CORPUSCULAR HEMOGLOBIN 29.4 pg (25.0-35.0); MEAN CORPUSCULAR HGB CONC 32.9 g/dl (31.0-37.0); MEAN PLATELET VOLUME 8.8 fl (7.0-11.0); MONO % 9.8 % (1.0-6.0); PLATELET COUNT 150 10^3/uL (120.0-450.0); RED CELL DISTRIBUTION WIDTH 19.9 % (11.5-14.5); WHITE BLOOD COUNT 10.2 10^3/ul (4.5-11.0)
[2017-03-02 06:56] LABS: INR 1.18 (0.93-1.08); PARTIAL THROMBOPLASTIN TIME 30.9 Seconds (23.7-30.8)
[2017-03-02 07:03] LABS: CARBON DIOXIDE 20 mmol/L (21-33); CHLORIDE 117 mmol/L (98-107); GFR AFRICAN-AMERICAN > 60; POTASSIUM 3.9 mmol/L (3.6-5.0); SODIUM 144 mmol/L (132-148)
--- NOTE | 2017-03-02 08:00 | CP.CCUPN ---
<Kailey Rogers - Last Filed: 03/02/17 11:03> CCU Subjective - Physician Review Subjective (Free Text): 03/02/17 07:58 no acute event overnight. denies CP, SOB. Looking forward to breakfast. No melonic stool 03/02/17 10:40 New onset A-fib RVR at 180. Given lopressor 5 IVP x 2. HR 115 now CCU Objective - Vital Signs / Intake & Output Vital Signs (Last 4 hours): Vital Signs Temp Pulse Resp BP Pulse Ox 03/02/17 06:40 81 18 98 03/02/17 06:30 78 18 97 03/02/17 06:20 83 10 L 94 L 03/02/17 06:10 79 23 97 03/02/17 06:00 81 17 140/74 97 03/02/17 05:50 79 19 100 03/02/17 05:40 82 16 100 03/02/17 05:30 82 20 100 03/02/17 05:20 78 19 99 03/02/17 05:10 79 19 100 03/02/17 05:00 81 29 H 149/73 100 03/02/17 04:50 84 37 H 100 03/02/17 04:40 83 47 H 99 03/02/17 04:30 81 26 H 100 03/02/17 04:20 83 31 H 100 03/02/17 04:10 84 39 H 98 03/02/17 04:00 97.8 F 81 19 130/53 L 100 Intake and Output (Last 8hrs): Intake & Output 03/01/17 03/02/17 03/02/17 22:59 06:59 14:59 Intake Total 700 1200 Output Total 315 900 Balance 385 300 Weight 152 lb Intake: IV 1200 Right 1200 Other 700 Output: Drainage 15 Right Chest 15 Urine 300 900 Urethral (Jerez) 300 900 Other: Voiding Method Indwelling Catheter # Bowel Movements 1 0 - Physical Exam Head: Positive for: Atraumatic, Normocephalic Pupils: Positive for: PERRL Conjunctiva: Positive for: Other (Pale conjunctiva) Mouth: Positive for: Dry (oral mucosa) Pharnyx: Positive for: Normal. Negative for: ERYTHEMA Neck: Positive for: Normal Range of Motion Respiratory/Chest: Positive for: Decreased Breath Sounds (Decreased breath sounds on right), Other (JESENIA drain from Right thoracic or ? upper abd cavity; port in place ) Cardiovascular: Positive for: Normal S1, S2, Tachycardic Abdomen: Positive for: Distention (mild), Scars (Midline Laparotomy scar, non- tender ). Negative for: Tenderness Rectal: Negative for: Melena (No melena ) Upper Extremity: Positive for: Normal Inspection. Negative for: Cyanosis, Edema Lower Extremity: Positive for: Normal Inspection. Negative for: Edema Neurological: Positive for: GCS=15, CN II-XII Intact, Speech Normal Skin: Positive for: Warm, Dry, Normal Color. Negative for: Rashes Psychiatric: Positive for: Alert - Medications Active Medications: Active Medications Generic Name Dose Route Start Last Admin Trade Name Freq PRN Reason Stop Dose Admin Acetaminophen 650 mg 03/01/17 04:54 Tylenol 325mg Tab PO Q4 PRN Fever >100.4 F Meropenem 1g/NS 100mL IVPB 1 gm in 100 mls @ 100 mls/hr 03/01/17 22:00 21:31 Meropenem 1g/Ns 100ml Ivpb IVPB 03/08/17 22:01 100 mls/hr Q12 JEAN CARLOS Administration Protocol Dextrose/Sodium Chloride 1,000 mls @ 100 mls/hr 03/01/17 15:00 03/02/17 00:28 Dextrose 5%/0.9% Ns 1000 Ml IV 100 mls/hr .Q10H JEAN CARLOS Administration Levothyroxine Sodium 67.5 mcg 03/01/17 10:00 03/01/17 10:06 Synthroid IVP 67.5 mcg DAILY JEAN CARLOS Administration Pantoprazole Sodium 40 mg 03/01/17 22:00 03/01/17 21:32 Protonix Inj IVP 40 mg Q12 JEAN CARLOS Administration - Patient Studies Lab Studies: Lab Studies 03/02/17 03/02/17 03/01/17 Range/Units 06:30 06:30 22:00 WBC 10.2 10.6 (4.5-11.0) 10^3/ul RBC 2.86 L 2.78 L (3.5-6.1) 10^6/uL Hgb 8.4 L 8.0 L (12.0-16.0) gm/dL Hct 25.5 L 25.0 L (36.0-48.0) % MCV 89.2 89.9 (80.0-105.0) fL MCH 29.4 28.8 (25.0-35.0) pg MCHC 32.9 32.0 (31.0-37.0) g/dl RDW 19.9 H 20.0 H (11.5-14.5) % Plt Count 150 143 (120.0-450.0) 10^3/uL MPV 8.8 8.7 (7.0-11.0) fl Gran % 69.1 H (50.0-68.0) % Lymph % (Auto) 13.7 L (22.0-35.0) % [place] % (Auto) 9.8 H (1.0-6.0) % Eos % (Auto) 7.1 H (1.5-5.0) % Baso % (Auto) 0.3 (0.0-3.0) % Gran # 7.02 H (1.4-6.5) Lymph # 1.4 (1.2-3.4) [place] # 1.0 H (0.1-0.6) Eos # 0.7 (0.0-0.7) Baso # 0.03 (0.0-2.0) K/mm3 PT 12.7 H (9.9-11.8) Seconds INR 1.18 H (0.93-1.08) APTT 30.9 H (23.7-30.8) Seconds Troponin I ng/mL Stool Occult Blood (NEGATIVE) 03/01/17 03/01/17 03/01/17 Range/Units 15:50 15:50 10:20 WBC 11.8 H (4.5-11.0) 10^3/ul RBC 2.81 L (3.5-6.1) 10^6/uL Hgb 8.2 L (12.0-16.0) gm/dL Hct 25.1 L (36.0-48.0) % MCV 89.3 (80.0-105.0) fL MCH 29.2 (25.0-35.0) pg MCHC 32.7 (31.0-37.0) g/dl RDW 19.3 H (11.5-14.5) % Plt Count 146 (120.0-450.0) 10^3/uL MPV 8.7 (7.0-11.0) fl Gran % (50.0-68.0) % Lymph % (Auto) (22.0-35.0) % [place] % (Auto) (1.0-6.0) % Eos % (Auto) (1.5-5.0) % Baso % (Auto) (0.0-3.0) % Gran # (1.4-6.5) Lymph # (1.2-3.4) [place] # (0.1-0.6) Eos # (0.0-0.7) Baso # (0.0-2.0) K/mm3 PT (9.9-11.8) Seconds INR (0.93-1.08) APTT (23.7-30.8) Seconds Troponin I 0.06 D ng/mL Stool Occult Blood Positive H (NEGATIVE) 03/01/17 03/01/17 Range/Units 09:18 09:18 WBC 13.6 H (4.5-11.0) 10^3/ul RBC 2.96 L (3.5-6.1) 10^6/uL Hgb 8.6 L (12.0-16.0) gm/dL Hct 26.5 L (36.0-48.0) % MCV 89.5 (80.0-105.0) fL MCH 29.1 (25.0-35.0) pg MCHC 32.5 (31.0-37.0) g/dl RDW 18.4 H (11.5-14.5) % Plt Count 145 (120.0-450.0) 10^3/uL MPV 9.2 (7.0-11.0) fl Gran % (50.0-68.0) % Lymph % (Auto) (22.0-35.0) % [place] % (Auto) (1.0-6.0) % Eos % (Auto) (1.5-5.0) % Baso % (Auto) (0.0-3.0) % Gran # (1.4-6.5) Lymph # (1.2-3.4) [place] # (0.1-0.6) Eos # (0.0-0.7) Baso # (0.0-2.0) K/mm3 PT (9.9-11.8) Seconds INR (0.93-1.08) APTT (23.7-30.8) Seconds Troponin I 0.10 D ng/mL Stool Occult Blood (NEGATIVE) Laboratory Results - last 24 hr 03/01/17 03/01/17 03/01/17 09:18 09:18 10:20 WBC 13.6 H RBC 2.96 L Hgb 8.6 L Hct 26.5 L MCV 89.5 MCH 29.1 MCHC 32.5 RDW 18.4 H Plt Count 145 MPV 9.2 Gran % Lymph % (Auto) [place] % (Auto) Eos % (Auto) Baso % (Auto) Gran # Lymph # [place] # Eos # Baso # PT INR APTT Troponin I 0.10 D Stool Occult Blood Positive H 03/01/17 03/01/17 03/01/17 15:50 15:50 22:00 WBC 11.8 H 10.6 RBC 2.81 L 2.78 L Hgb 8.2 L 8.0 L Hct 25.1 L 25.0 L MCV 89.3 89.9 MCH 29.2 28.8 MCHC 32.7 32.0 RDW 19.3 H 20.0 H Plt Count 146 143 MPV 8.7 8.7 Gran % Lymph % (Auto) [place] % (Auto) Eos % (Auto) Baso % (Auto) Gran # Lymph # [place] # Eos # Baso # PT INR APTT Troponin I 0.06 D Stool Occult Blood 03/02/17 03/02/17 06:30 06:30 WBC 10.2 RBC 2.86 L Hgb 8.4 L Hct 25.5 L MCV 89.2 MCH 29.4 MCHC 32.9 RDW 19.9 H Plt Count 150 MPV 8.8 Gran % 69.1 H Lymph % (Auto) 13.7 L [place] % (Auto) 9.8 H Eos % (Auto) 7.1 H Baso % (Auto) 0.3 Gran # 7.02 H Lymph # 1.4 [place] # 1.0 H Eos # 0.7 Baso # 0.03 PT 12.7 H INR 1.18 H APTT 30.9 H Troponin I Stool Occult Blood Critical Care Progress Note - Nutrition Nutrition: Nutrition Category Date Time Status Dysphagia/Modified Consistency Diet [DIET] Diets 03/02/17 Breakfast Ordered Assessment/Plan - Assessment and Plan (Free Text) Plan: 66 F w PMH Stage 4 Colon CA, diagnosed 10 years ago, on active chemo for mets, s /p resection on February 08 for mets at [facility], with recurrent pleural effusion s/p pleurex drainage, indwelling jerez admitted to ICU for severe sepsis due to pneumonia. Today, pt has new A-fib RVR. New onset a-fib workup is undergoing. Neuro - AAOx3, baseline - Tmax 102 (03/01 4am) Pulm - maintain O2 sat above 92%; patient not complaining of SOB - CXR: slight decrease of venous congestion Cardio - New onset A-fib rvr, s/p lopressor 5 ivp x 2 - trends trops again. TWI in anterior leads, no sig changes as compared 03/01 ekg - 03/01: troponin spill 2/2 to demand ischemia, trending down GI - start bite size diet with thin liquid - D5/NS@100 - Rectal exam +guiac - Protonix BID - Gi team reached out to [facility] who recommended bleeding scan Renal - LONG 2/2 to sepsis/dehydration - i/o = 1900/1215 Endo - Pending TSH for sudden a-fib Heme - HbG on admission 9.1 (unknown baseline). Hb stable at 8.4 today - Hb 8.2 s/p 1 u pRBC. The transfusion is for Hx melonic stool - No melonic stool observed during ICU stay. - No signs of active GI bleed ID - On meropenem day 2 - Vanc and Zosyn x 1 in ED - Lactate 2.1 --> 1.1. No leukocytosis - no growth 24 hr Prophylasix - Upgrade to heparin SC Disposition - If HR stable, may transfer tonight/tomorrow s/r/d w Dr. Milian - Date & Time Date: 03/02/17 Time: 07:59 <Rukhsana BROWN,Inamul H - Last Filed: 03/02/17 13:37> CCU Objective - Vital Signs / Intake & Output Vital Signs (Last 4 hours): Vital Signs Pulse Resp BP Pulse Ox 03/02/17 13:10 88 33 H 100 03/02/17 13:00 85 26 H 146/69 100 03/02/17 12:50 86 34 H 98 03/02/17 12:40 87 31 H 100 03/02/17 12:30 126 H 23 85 L 03/02/17 12:20 124 H 15 100 03/02/17 12:10 119 H 23 93 L 03/02/17 12:05 120 H 151/75 H 03/02/17 12:00 122 H 38 H 151/76 H 98 03/02/17 11:50 113 H 31 H 93 L 03/02/17 11:40 106 H 25 H 100 03/02/17 11:30 153 H 31 H 95 03/02/17 11:20 121 H 25 H 100 03/02/17 11:10 120 H 26 H 92 L 03/02/17 11:00 118 H 117/67 95 03/02/17 10:50 123 H 21 96 03/02/17 10:40 117 H 22 117/67 98 03/02/17 10:30 137 H 26 H 95 03/02/17 10:29 142 H 27 H 138/80 100 03/02/17 10:20 136 H 29 H 93 L 03/02/17 10:10 113 H 28 H 94 L 03/02/17 10:08 162 H 114/76 03/02/17 10:00 113 H 27 H 144/76 97 03/02/17 09:50 112 H 22 99 03/02/17 09:40 124 H 32 H 100 03/02/17 09:35 169 H 24 142/88 100 Intake and Output (Last 8hrs): Intake & Output 03/01/17 03/02/17 03/02/17 22:59 06:59 14:59 Intake Total 700 1200 Output Total 315 900 Balance 385 300 Weight 152 lb Intake: IV 1200 Right 1200 Other 700 Output: Drainage 15 Right Chest 15 Urine 300 900 Urethral (Jerez) 300 900 Other: Voiding Method Indwelling Catheter # Bowel Movements 1 0 - Medications Active Medications: Active Medications Generic Name Dose Route Start Last Admin Trade Name Freq PRN Reason Stop Dose Admin Acetaminophen 650 mg 03/01/17 04:54 Tylenol 325mg Tab PO Q4 PRN Fever >100.4 F Heparin Sodium (Porcine) 5,000 units 03/02/17 14:00 03/02/17 13:23 Heparin SC 5,000 units Q8 JEAN CARLOS Administration Protocol Meropenem 1g/NS 100mL IVPB 1 gm in 100 mls @ 100 mls/hr 03/01/17 22:00 10:13 Meropenem 1g/Ns 100ml Ivpb IVPB 03/08/17 22:01 100 mls/hr Q12 JEAN CARLOS Administration Protocol Dextrose/Sodium Chloride 1,000 mls @ 100 mls/hr 03/01/17 15:00 03/02/17 11:32 Dextrose 5%/0.9% Ns 1000 Ml IV 100 mls/hr .Q10H JEAN CARLOS Administration Amiodarone HCl/Dextrose 360 mg in 200 mls @ 33.333 mls/hr 03/02/17 12:30 12:45 Nexterone 360 Mg In D5w 200 Ml (Premix) IV 33.333 mls/hr .Q6H JEAN CARLOS Administration Protocol 1 MG/MIN Levothyroxine Sodium 67.5 mcg 03/01/17 10:00 03/02/17 10:12 Synthroid IVP 67.5 mcg DAILY JEAN CARLOS Administration Levothyroxine Sodium 112 mcg 03/03/17 10:00 Synthroid PO DAILY JEAN CARLOS Pantoprazole Sodium 40 mg 03/01/17 22:00 03/02/17 10:12 Protonix Inj IVP 40 mg Q12 JEAN CARLOS Administration - Patient Studies Lab Studies: Microbiology Studies 03/01/17 06:20 Urine Culture - Final Urine,Jerez Yeast Species Lab Studies 03/02/17 03/02/17 03/02/17 Range/Units 10:30 10:00 08:00 WBC (4.5-11.0) 10^3/ul RBC (3.5-6.1) 10^6/uL Hgb (12.0-16.0) gm/dL Hct (36.0-48.0) % MCV (80.0-105.0) fL MCH (25.0-35.0) pg MCHC (31.0-37.0) g/dl RDW (11.5-14.5) % Plt Count (120.0-450.0) 10^3/uL MPV (7.0-11.0) fl Gran % (50.0-68.0) % Lymph % (Auto) (22.0-35.0) % [place] % (Auto) (1.0-6.0) % Eos % (Auto) (1.5-5.0) % Baso % (Auto) (0.0-3.0) % Gran # (1.4-6.5) Lymph # (1.2-3.4) [place] # (0.1-0.6) Eos # (0.0-0.7) Baso # (0.0-2.0) K/mm3 PT (9.9-11.8) Seconds INR (0.93-1.08) APTT (23.7-30.8) Seconds Sodium 143 144 (132-148) mmol/L Potassium 3.9 3.9 (3.6-5.0) mmol/L Chloride 117 H 117 H (98-107) mmol/L Carbon Dioxide 19 L 20 L (21-33) mmol/L Anion Gap 11 11 (10-20) BUN 29 H 30 H (7-21) mg/dL Creatinine 0.8 0.8 (0.5-1.4) mg/dL Est GFR ( Amer) > 60 > 60 Est GFR (Non-Af Amer) > 60 > 60 Random Glucose 110 110 (70-110) mg/dL Calcium 5.5 L* 5.4 L* (8.4-10.5) mg/dL Phosphorus 3.6 (2.5-4.5) mg/dL Magnesium 1.8 (1.7-2.2) mg/dL Total Bilirubin 0.5 0.5 (0.2-1.3) mg/dL AST 48 H 48 H (15-39) U/L ALT 31 30 (7-56) U/L Alkaline Phosphatase 216 H 225 H (38-133) U/L Lactate Dehydrogenase 635 (333-699) U/L Total Creatine Kinase 42 (35-230) U/L Troponin I 0.03 D ng/mL Total Protein 5.5 L 5.6 L (5.8-8.3) g/dL Albumin 2.3 L 2.3 L (3.0-4.8) g/dL Globulin 3.3 3.3 gm/dL Albumin/Globulin Ratio 0.7 L 0.7 L (1.1-1.8) 06/17/17 06/17/17 06/16/17 Range/Units 06:30 06:30 22:00 WBC 10.2 10.6 (4.5-11.0) 10^3/ul RBC 2.86 L 2.78 L (3.5-6.1) 10^6/uL Hgb 8.4 L 8.0 L (12.0-16.0) gm/dL Hct 25.5 L 25.0 L (36.0-48.0) % MCV 89.2 89.9 (80.0-105.0) fL MCH 29.4 28.8 (25.0-35.0) pg MCHC 32.9 32.0 (31.0-37.0) g/dl RDW 19.9 H 20.0 H (11.5-14.5) % Plt Count 150 143 (120.0-450.0) 10^3/uL MPV 8.8 8.7 (7.0-11.0) fl Gran % 69.1 H (50.0-68.0) % Lymph % (Auto) 13.7 L (22.0-35.0) % [place] % (Auto) 9.8 H (1.0-6.0) % Eos % (Auto) 7.1 H (1.5-5.0) % Baso % (Auto) 0.3 (0.0-3.0) % Gran # 7.02 H (1.4-6.5) Lymph # 1.4 (1.2-3.4) [place] # 1.0 H (0.1-0.6) Eos # 0.7 (0.0-0.7) Baso # 0.03 (0.0-2.0) K/mm3 PT 12.7 H (9.9-11.8) Seconds INR 1.18 H (0.93-1.08) APTT 30.9 H (23.7-30.8) Seconds Sodium (132-148) mmol/L Potassium (3.6-5.0) mmol/L Chloride (98-107) mmol/L Carbon Dioxide (21-33) mmol/L Anion Gap (10-20) BUN (7-21) mg/dL Creatinine (0.5-1.4) mg/dL Est GFR ( Amer) Est GFR (Non-Af Amer) Random Glucose (70-110) mg/dL Calcium (8.4-10.5) mg/dL Phosphorus (2.5-4.5) mg/dL Magnesium (1.7-2.2) mg/dL Total Bilirubin (0.2-1.3) mg/dL AST (15-39) U/L ALT (7-56) U/L Alkaline Phosphatase (38-133) U/L Lactate Dehydrogenase (333-699) U/L Total Creatine Kinase (35-230) U/L Troponin I ng/mL Total Protein (5.8-8.3) g/dL Albumin (3.0-4.8) g/dL Globulin gm/dL Albumin/Globulin Ratio (1.1-1.8) 03/01/17 03/01/17 Range/Units 15:50 15:50 WBC 11.8 H (4.5-11.0) 10^3/ul RBC 2.81 L (3.5-6.1) 10^6/uL Hgb 8.2 L (12.0-16.0) gm/dL Hct 25.1 L (36.0-48.0) % MCV 89.3 (80.0-105.0) fL MCH 29.2 (25.0-35.0) pg MCHC 32.7 (31.0-37.0) g/dl RDW 19.3 H (11.5-14.5) % Plt Count 146 (120.0-450.0) 10^3/uL MPV 8.7 (7.0-11.0) fl Gran % (50.0-68.0) % Lymph % (Auto) (22.0-35.0) % [place] % (Auto) (1.0-6.0) % Eos % (Auto) (1.5-5.0) % Baso % (Auto) (0.0-3.0) % Gran # (1.4-6.5) Lymph # (1.2-3.4) [place] # (0.1-0.6) Eos # (0.0-0.7) Baso # (0.0-2.0) K/mm3 PT (9.9-11.8) Seconds INR (0.93-1.08) APTT (23.7-30.8) Seconds Sodium (132-148) mmol/L Potassium (3.6-5.0) mmol/L Chloride (98-107) mmol/L Carbon Dioxide (21-33) mmol/L Anion Gap (10-20) BUN (7-21) mg/dL Creatinine (0.5-1.4) mg/dL Est GFR ( Amer) Est GFR (Non-Af Amer) Random Glucose (70-110) mg/dL Calcium (8.4-10.5) mg/dL Phosphorus (2.5-4.5) mg/dL Magnesium (1.7-2.2) mg/dL Total Bilirubin (0.2-1.3) mg/dL AST (15-39) U/L ALT (7-56) U/L Alkaline Phosphatase (38-133) U/L Lactate Dehydrogenase (333-699) U/L Total Creatine Kinase (35-230) U/L Troponin I 0.06 D ng/mL Total Protein (5.8-8.3) g/dL Albumin (3.0-4.8) g/dL Globulin gm/dL Albumin/Globulin Ratio (1.1-1.8) Laboratory Results - last 24 hr 03/01/17 03/01/17 03/01/17 15:50 15:50 22:00 WBC 11.8 H 10.6 RBC 2.81 L 2.78 L Hgb 8.2 L 8.0 L Hct 25.1 L 25.0 L MCV 89.3 89.9 MCH 29.2 28.8 MCHC 32.7 32.0 RDW 19.3 H 20.0 H Plt Count 146 143 MPV 8.7 8.7 Gran % Lymph % (Auto) [place] % (Auto) Eos % (Auto) Baso % (Auto) Gran # Lymph # [place] # Eos # Baso # PT INR APTT Sodium Potassium Chloride Carbon Dioxide Anion Gap BUN Creatinine Est GFR ( Amer) Est GFR (Non-Af Amer) Random Glucose Calcium Phosphorus Magnesium Total Bilirubin AST ALT Alkaline Phosphatase Lactate Dehydrogenase Total Creatine Kinase Troponin I 0.06 D Total Protein Albumin Globulin Albumin/Globulin Ratio 06/17/17 06/17/17 06/17/17 06:30 06:30 08:00 WBC 10.2 RBC 2.86 L Hgb 8.4 L Hct 25.5 L MCV 89.2 MCH 29.4 MCHC 32.9 RDW 19.9 H Plt Count 150 MPV 8.8 Gran % 69.1 H Lymph % (Auto) 13.7 L [place] % (Auto) 9.8 H Eos % (Auto) 7.1 H Baso % (Auto) 0.3 Gran # 7.02 H Lymph # 1.4 [place] # 1.0 H Eos # 0.7 Baso # 0.03 PT 12.7 H INR 1.18 H APTT 30.9 H Sodium 144 Potassium 3.9 Chloride 117 H Carbon Dioxide 20 L Anion Gap 11 BUN 30 H Creatinine 0.8 Est GFR ( Amer) > 60 Est GFR (Non-Af Amer) > 60 Random Glucose 110 Calcium 5.4 L* Phosphorus Magnesium Total Bilirubin 0.5 AST 48 H ALT 30 Alkaline Phosphatase 225 H Lactate Dehydrogenase Total Creatine Kinase Troponin I Total Protein 5.6 L Albumin 2.3 L Globulin 3.3 Albumin/Globulin Ratio 0.7 L 03/02/17 03/02/17 10:00 10:30 WBC RBC Hgb Hct MCV MCH MCHC RDW Plt Count MPV Gran % Lymph % (Auto) [place] % (Auto) Eos % (Auto) Baso % (Auto) Gran # Lymph # [place] # Eos # Baso # PT INR APTT Sodium 143 Potassium 3.9 Chloride 117 H Carbon Dioxide 19 L Anion Gap 11 BUN 29 H Creatinine 0.8 Est GFR ( Amer) > 60 Est GFR (Non-Af Amer) > 60 Random Glucose 110 Calcium 5.5 L* Phosphorus 3.6 Magnesium 1.8 Total Bilirubin 0.5 AST 48 H ALT 31 Alkaline Phosphatase 216 H Lactate Dehydrogenase 635 Total Creatine Kinase 42 Troponin I 0.03 D Total Protein 5.5 L Albumin 2.3 L Globulin 3.3 Albumin/Globulin Ratio 0.7 L EKG/Cardiology Studies: Cardiology / EKG Studies 03/02/17 09:40 ELECTROCARDIOGRAM Stat Comment: Reason For Exam: tachycardia Critical Care Progress Note - Nutrition Nutrition: Nutrition Category Date Time Status Dysphagia/Modified Consistency Diet [DIET] Diets 03/02/17 Breakfast Ordered Attending/Attestation - Attestation I have personally seen and examined this patient.: Yes I have fully participated in the care of the patient.: Yes I have reviewed all pertinent clinical information: Yes Notes (Text): 03/02/17 13:33 No acute events overnight. Today she was found to have A FIB hr> 150 w/ stable BP Given Lopressor IVP which kept the HR <120 but once again HR elevated. Amiodarone bolus to be given and may need cardizem drip. Likley from a combination of sepsis, low volume status and electrolyte abnormality . Otherwise clinically stable. HGB stable . Toleratin gmild P.O intake and D5NS Surgical team following the patient - no acute plans. Fresh stables note din abd from recent surgery . On empiric abx for infection post op. cx pending. Liver drain in place, will need surgery team 's guidance on when to remove . dvt p heparin sq to start . ppi cc time 65 min
[2017-03-02 08:23] LABS: ALB/GLOB RATIO 0.7 (1.1-1.8); ALKALINE PHOSPHATASE 225 U/L (38-133); ALT/SGPT 30 U/L (7-56); AST/SGOT 48 U/L (15-39); BILIRUBIN,TOTAL 0.5 mg/dL (0.2-1.3); BLOOD UREA NITROGEN 30 mg/dL (7-21); GLUCOSE,RANDOM 110 mg/dL (70-110); TOTAL PROTEIN 5.6 g/dL (5.8-8.3)
[2017-03-02 08:32] LABS: CALCIUM 5.4 mg/dL (8.4-10.5)
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
[2017-03-02] MEDS ORDERED: Metoprolol 1 mg/ml Inj IVP ONE ×2 (09:41→10:39)
[2017-03-02] MEDS ORDERED: Sodium Chloride 0.9% 1,000 ML IV STA (10:02)
[2017-03-02] MEDS: Levothyroxine 100 mcg (0.1 mg) Inj IVP SCH (10:12)
[2017-03-02] MEDS: Meropenem 1g/NS 100mL IVPB 1 GM/100 ML PIGGYBACK IVPB SCH ×2 (10:13→22:15)
[2017-03-02 10:28] LABS: TROPONIN I 0.03 ng/mL
--- NOTE | 2017-03-02 10:33 | PN ---
DATE: 03/02/2017 SUBJECTIVE: The patient appears comfortable this morning. She is not short of breath at rest. PHYSICAL EXAMINATION: VITAL SIGNS: Temperature is 97.8, pulse on the monitor is 88, respiratory rate 18, blood pressure 130/53. Oxygen saturation on nasal cannula is 100%. HEENT: Normocephalic, atraumatic. No JVD. CARDIOVASCULAR: Positive S1, S2. No S3. LUNGS: Decreased breath sounds at the bases. No rhonchi or wheezing. EXTREMITIES: Mild edema. No cyanosis, no clubbing. Calves are nontender to palpation. GASTROINTESTINAL: Abdomen is soft. It is mildly distended, but nontender to palpation. Bowel sounds are positive. Intraabdominal drain in place. SKIN: No acute rash. NEUROLOGIC: Limited at the present time. PERTINENT LABORATORY DATA: Chest x-ray was done this morning and reviewed. There is partial clearing of the very minimal changes noted at the right base. IMPRESSION: 1. Sepsis syndrome. 2. Gastrointestinal bleeding. 3. Advanced, stage IV colon cancer 4. Status post recent extensive surgery at [facility]. 5. Minimal atelectasis -- right base. 6. Small bilateral pleural effusions. 7. Anemia. 8. Renal insufficiency. PLAN: The patient appears comfortable this morning. She is not short of breath at rest. She is not coughing. She does state to feeling better overall. I did review the chest x-ray as above. There is partial clearing of the minimal changes noted at the right base. I did reinforce the importance of incentive spirometry with the nurse and the patient this morning. I have also reviewed the laboratory data. The leukocytosis has now resolved. Procalcitonin level done yesterday -- was elevated. However, the procalcitonin may be elevated in both renal insufficiency states, as well as metastatic cancer states. I would continue with the antibiotic coverage as per infectious disease. I did discuss the case with Dr. Vega yesterday. The temperatures have now completely resolved. Again, the leukocytosis has also resolved. I would continue with the GI evaluation. Input by Vanessa Garcia is noted. Repeat a.m. labs are pending. Clinical status of the patient is certainly improved -- compared to the initial presentation. However, again, the overall status/ prognosis for this patient -- with metastatic colon cancer -- remains very guarded at best. I will discuss the above with the entire ICU team in the next few moments. I will also discuss the above with Dr. Barton later this morning. Ciaran Whelan MD cc: [phone] TT: 03/02/2017 10:32:20 Confirmation # [id number] Dictation # [id number] tn MTDD
--- NOTE | 2017-03-02 10:47 | RAD ---
HISTORY: follow up COMPARISON: Chest x-ray performed 03/01/17 TECHNIQUE: Chest, one view. FINDINGS: Right IJ approach central venous catheter extends expected location of the cavoatrial junction. LUNGS: Bibasilar atelectasis or infiltrates. Please note that chest x-ray has limited sensitivity for the detection of pulmonary masses. PLEURA: Small bilateral pleural effusions. No definite pneumothorax . CARDIOVASCULAR: Mild cardiomegaly. OSSEOUS STRUCTURES: Degenerative changes of the spine and shoulders. VISUALIZED UPPER ABDOMEN: Right upper quadrant drainage catheter. Right upper quadrant surgical clips. Elevation of the right hemidiaphragm. OTHER FINDINGS: Surgical clips project over the soft tissues of the upper neck. IMPRESSION: Right IJ approach central venous catheter extends to the expected location of the cavoatrial junction. Right upper quadrant drainage catheter. Mild cardiomegaly. Bibasilar atelectasis or infiltrates. Small bilateral pleural effusions.
[2017-03-02 10:51] LABS: MAGNESIUM 1.8 mg/dL (1.7-2.2); PHOSPHOROUS 3.6 mg/dL (2.5-4.5)
[2017-03-02 11:35] LABS: ALB/GLOB RATIO 0.7 (1.1-1.8); ALKALINE PHOSPHATASE 216 U/L (38-133); ALT/SGPT 31 U/L (7-56); AST/SGOT 48 U/L (15-39); BILIRUBIN,TOTAL 0.5 mg/dL (0.2-1.3); BLOOD UREA NITROGEN 29 mg/dL (7-21); CARBON DIOXIDE 19 mmol/L (21-33); CHLORIDE 117 mmol/L (98-107); GFR AFRICAN-AMERICAN > 60; GLUCOSE,RANDOM 110 mg/dL (70-110); POTASSIUM 3.9 mmol/L (3.6-5.0); SODIUM 143 mmol/L (132-148); TOTAL PROTEIN 5.5 g/dL (5.8-8.3)
[2017-03-02 11:52] LABS: CALCIUM 5.5 mg/dL (8.4-10.5)
[2017-03-02] MEDS ORDERED: diltiaZEM IVPB 100mg in NS 100 ML IV PRN (11:53)
[2017-03-02] MEDS ORDERED: Amiodarone 150 mg/D5W 100 ml 150 MG/100 ML BAG IVPB ONE (12:21)
[2017-03-02] MEDS: Amiodarone 360 mg/D5W 200 ml 360 MG/200 ML BAG IV SCH ×2 (12:45→18:41)
--- NOTE | 2017-03-02 13:01 | CP.PCM.PN ---
Subjective - Date & Time of Evaluation Date of Evaluation: 03/02/17 Time of Evaluation: 10:20 - Subjective Subjective: Comfortable, not in distress, afebrile, more awake today and no abdominal pain, no nausea or vomiting. Objective - Vital Signs/Intake and Output Vital Signs (last 24 hours): Temp Pulse Resp BP Pulse Ox 97.8 F 81 18 140/74 98 03/02/17 04:00 03/02/17 06:40 03/02/17 06:40 03/02/17 06:00 03/02/17 06:40 Intake and Output: 03/02/17 03/02/17 06:59 18:59 Intake Total 1200 Output Total 900 Balance 300 - Medications Medications: Current Medications Acetaminophen (Tylenol 325mg Tab) 650 mg PO Q4 PRN PRN Reason: Fever >100.4 F Meropenem 1g/NS 100mL IVPB (Meropenem 1g/Ns 100ml Ivpb) 1 gm in 100 mls @ 100 mls/hr IVPB Q12 JEAN CARLOS PRN Reason: Protocol Stop: 03/08/17 22:01 Last Admin: 03/01/17 21:31 Dose: 100 mls/hr Dextrose/Sodium Chloride (Dextrose 5%/0.9% Ns 1000 Ml) 1,000 mls @ 100 mls/hr IV .Q10H [facility] Last Admin: 03/02/17 00:28 Dose: 100 mls/hr Levothyroxine Sodium (Synthroid) 67.5 mcg IVP DAILY [facility] Last Admin: 03/01/17 10:06 Dose: 67.5 mcg Pantoprazole Sodium (Protonix Inj) 40 mg IVP Q12 [facility] Last Admin: 03/01/17 21:32 Dose: 40 mg - Labs Labs: 03/02/17 06:30 PT 12.7 Seconds (9.9-11.8) H 03/02/17 06:30 INR 1.18 (0.93-1.08) H 03/02/17 06:30 APTT 30.9 Seconds (23.7-30.8) H 03/02/17 06:30 - Constitutional Appears: Non-toxic, No Acute Distress - Head Exam Head Exam: NORMAL INSPECTION - Neck Exam Neck Exam: absent: Meningismus - Respiratory Exam Respiratory Exam: Decreased Breath Sounds - Cardiovascular Exam Cardiovascular Exam: +S1, +S2 - GI/Abdominal Exam GI & Abdominal Exam: Soft. absent: Tenderness Assessment and Plan - Assessment and Plan (Free Text) Plan: Assessment Systemic Inflammatory Response Syndrome, R/O sepsis due to enteritis/ colitis in a patient who is presenting with melena and just underwent surgery for colon cancer last month stage 4 colon cancer, S/P colon resection at [facility] Feb 08 2017 probable recurrent pleural effusions S/P pleurex catheter placement indwelling Castro catheter history of diverticulitis chronic renal failure Plan continue Merrem day 2; blood cx are negative; reviewed CT abdomen and pelvis and discussed with Dr. Whelan - right lower lobe is probably more atelectasis will continue to follow clinically
--- NOTE | 2017-03-02 13:12 | PN ---
DATE: 03/02/2017 She was seen in the intensive care unit. She was doing fairly well overnight and then she had rapid afib and they had to give her some Cardizem IV. Cardiology is on the case, Dr. House, and we will see what he thinks. There is no apparent bleeding at this time. She is alert and comfortable, no pain. PHYSICAL EXAMINATION: VITAL SIGNS: 97.8 temp, 81 pulse, it went up to 162 in afib, 114/76 blood pressure, 18 respiratory r ate, 98% O2 sat on room air. HEENT: Head is atraumatic, normocephalic. HEART: Regular rate. LUNGS: Decreased breath sounds bilaterally. ABDOMEN: Soft, decreased bowel sounds but present. EXTREMITIES: No edema, but weak. MEDICATIONS: She is currently on calcium replacement, dextrose, heparin, Merrem IV, Protonix, Synthr oid, Tylenol. LABORATORY DATA: She has a 144 sodium, potassium of 3.9, BUN 30, creatinine 0.8, GFR is greater than 60, sugar is 110, calcium of 5.4. She was replaced. AST is 48, ALT is 30, alk phos 225. Troponins of 0.1, 0.06, 0.03. Total protein is 5.6. White count is 10.2, the best it has been, 8.4 hemoglobi n, 25.5 hematocrit with 150 platelets. Moderate bacteria. Stool was positive for blood. She is being seen by pulmonary, GI, infectious disease and cardiology. She has multiple issues from sepsis syndrome, GI bleeding, stage IV colon cancer, mild atelectasis, small bilateral pleural effusi ons, anemia and renal insufficiency. Continue with aggressive treatment and care until we can send h er back to subacute rehab. Wily Barton DO cc: [id number] TT: 03/02/2017 13:11:08 Confirmation # [id number] Dictation # [id number] francine
--- NOTE | 2017-03-02 15:42 | CARD ---
APPROVED REPORT EKG Measurement Heart [id number] <Conclusion> Atrial fibrillation with rapid ventricular response Low voltage QRS Cannot rule out Anterior infarct, age undetermined Abnormal ECG
--- NOTE | 2017-03-02 15:53 | CP.PCM.PCO ---
Physician Communication Note - Physician Communication Note Physician Communication Note: PUD/?bleeding-Marasmus problem/Needs EGD/IV AB+ bacteremia
[2017-03-02 16:00] LABS: ADD MANUAL DIFF? NO
[2017-03-02] MEDS ORDERED: Vancomycin 1gm in NS 250ml 1 GM/250 ML BAG IVPB ONE (16:00)
[2017-03-02 16:01] LABS: VENOUS BLOOD GAS BASE EXCESS -4.5 mmol/L (0.0-2.0); VENOUS BLOOD PH 7.37 (7.32-7.43)
[2017-03-02 16:08] LABS: BASO # 0.04 K/mm3 (0.0-2.0); BASO % 0.4 % (0.0-3.0); EOS # 0.7 (0.0-0.7); EOS % 6.9 % (1.5-5.0); GRAN # 7.08 (1.4-6.5); GRAN % 71.5 % (50.0-68.0); HEMATOCRIT 30.2 % (36.0-48.0); LYMPH # 1.4 (1.2-3.4); LYMPH % 14.3 % (22.0-35.0); MEAN CELL VOLUME 90.4 fL (80.0-105.0); MEAN CORPUSCULAR HEMOGLOBIN 29.6 pg (25.0-35.0); MEAN CORPUSCULAR HGB CONC 32.8 g/dl (31.0-37.0); MEAN PLATELET VOLUME 9.1 fl (7.0-11.0); MONO # 0.7 (0.1-0.6); MONO % 6.9 % (1.0-6.0); PLATELET COUNT 185 10^3/uL (120.0-450.0); RED CELL DISTRIBUTION WIDTH 20.2 % (11.5-14.5); WHITE BLOOD COUNT 9.9 10^3/ul (4.5-11.0)
[2017-03-02 16:09] LABS: ALB/GLOB RATIO 0.7 (1.1-1.8); ALKALINE PHOSPHATASE 357 U/L (38-133); ALT/SGPT 41 U/L (7-56); AST/SGOT 84 U/L (15-39); BILIRUBIN,TOTAL 0.4 mg/dL (0.2-1.3); BLOOD UREA NITROGEN 21 mg/dL (7-21); CARBON DIOXIDE 19 mmol/L (21-33); CHLORIDE 115 mmol/L (98-107); GFR AFRICAN-AMERICAN > 60; GLUCOSE,RANDOM 129 mg/dL (70-110); MAGNESIUM 1.5 mg/dL (1.7-2.2); PHOSPHOROUS 3.1 mg/dL (2.5-4.5); POTASSIUM 3.7 mmol/L (3.6-5.0); SODIUM 142 mmol/L (132-148); TOTAL PROTEIN 5.8 g/dL (5.8-8.3)
--- NOTE | 2017-03-02 16:16 | CARD ---
APPROVED REPORT EKG Measurement Heart [id number] <Conclusion> Sinus tachycardia with premature atrial complexes Septal infarct, age undetermined Abnormal ECG
[2017-03-02 16:21] LABS: TROPONIN I 0.02 ng/mL
[2017-03-02 16:33] LABS: URINE BILIRUBIN NEGATIVE (NEGATIVE); URINE BLOOD LARGE (NEGATIVE); URINE GLUCOSE (UA) NEGATIVE (NEGATIVE); URINE KETONE NEGATIVE (NEGATIVE); URINE LEUKOCYTE ESTERASE MODERATE Leu/uL (NEGATIVE); URINE PROTEIN TRACE mg/dL (<30 mg/dL); URINE UROBILINOGEN 0.2 E.U./dL (<1 E.U./dL)
[2017-03-02 16:34] LABS: URINE APPEARANCE CLEAR (CLEAR); URINE COLOR YELLOW (YELLOW)
[2017-03-02 16:47] LABS: INR 1.19 (0.93-1.08); PARTIAL THROMBOPLASTIN TIME 35.9 Seconds (23.7-30.8)
[2017-03-02 17:14] LABS: URINE WBC TNTC /hpf (0-6)
[2017-03-02 17:15] LABS: URINE BACTERIA MOD (NEG)
[2017-03-02] MEDS ORDERED: Magnesium Sulfate 2 GM in Sodium Chloride 0.9% 100 ML IVPB ONE (17:41)
--- NOTE | 2017-03-03 01:16 | PN ---
DATE: 03/02/2017 SUBJECTIVE: This patient was seen and evaluated earlier and discussed with Dr. Odonnell. The patien t is not in acute distress and comfortable. PHYSICAL EXAMINATION: VITAL SIGNS: Remains afebrile. The patient's T-max was 102.2 today and remains afebrile. Blood pre ssure 156/72, pulse 79 and respirations are 22. HEENT: Atraumatic and anicteric. NECK: Supple. HEART: S1, S2 heard. LUNGS: Bilateral air entry present. ABDOMEN: Soft. There is a laparotomy scar present and a drainage catheter present on the right side . . LUNGS: air entry slightly reduced. EXTREMITIES: No cyanosis and no clubbing. LABORATORY DATA: Hemoglobin 9.9, hematocrit 30.2, WBC is 9.9 and platelets 185. The patient did rec eive a unit of transfusion . IMPRESSION: 1. This 66-year-old patient who underwent a hepatic wedge resection with a cholecystectomy and also colon resection with history of colon carcinoma. Dr. Odonnell had discussed with the surgeon at the [facility]. Presently, the drainage catheter is a biliary drainage catheter. 2. The patient was admitted with dark stool, probably melena. Since admission, no gastrointestinal bleeding noticed. Hemoglobin has been stable, transfused 1 unit and on proton pump inhibitor. Rachelle nue that. 3. Poor oral intake since surgery. The patient states no difficulty in swallowing. She states she does not feel like eating with no appetite at all and malnutrition. The patient is due to be started on TPN, but this have been discontinued in view of the blood cultures. 4. Sepsis. The patient had a blood culture gram positive ____ noticed. Coagulase negative. Blood c ulture positive. WOULD RECOMMEND: The patient is planned to have her port were taken out. Continue the antibiotics. I discussed with . I agree with doing an endoscopy. The timing will be based on . Continue the antibio tics as per ID. Continue the PPI. Followup of the hemoglobin and hematocrit. Continue the surgical follow up. Thank you very much for allowing us to participate in the care of the patient. Jace Fernandez MD cc: [id number] TT: 03/02/2017 23:33:18 Confirmation # [id number] Dictation # [id number]
[2017-03-03] MEDS: Amiodarone 360 mg/D5W 200 ml 360 MG/200 ML BAG IV SCH (05:36)
[2017-03-03 06:22] LABS: ADD MANUAL DIFF? NO
[2017-03-03 06:32] LABS: BASO # 0.03 K/mm3 (0.0-2.0); BASO % 0.3 % (0.0-3.0); EOS # 0.5 (0.0-0.7); EOS % 5.7 % (1.5-5.0); GRAN # 6.53 (1.4-6.5); GRAN % 69.1 % (50.0-68.0); HEMATOCRIT 27.3 % (36.0-48.0); LYMPH # 1.7 (1.2-3.4); LYMPH % 17.4 % (22.0-35.0); MEAN CELL VOLUME 88.3 fL (80.0-105.0); MEAN CORPUSCULAR HEMOGLOBIN 29.1 pg (25.0-35.0); MEAN PLATELET VOLUME 9.1 fl (7.0-11.0); MONO # 0.7 (0.1-0.6); MONO % 7.5 % (1.0-6.0); PLATELET COUNT 207 10^3/uL (120.0-450.0); RED CELL DISTRIBUTION WIDTH 19.7 % (11.5-14.5); WHITE BLOOD COUNT 9.5 10^3/ul (4.5-11.0)
[2017-03-03 06:33] LABS: ALB/GLOB RATIO 0.7 (1.1-1.8); ALKALINE PHOSPHATASE 383 U/L (38-133); ALT/SGPT 51 U/L (7-56); AST/SGOT 93 U/L (15-39); BILIRUBIN,TOTAL 0.5 mg/dL (0.2-1.3); BLOOD UREA NITROGEN 12 mg/dL (7-21); CARBON DIOXIDE 20 mmol/L (21-33); CHLORIDE 115 mmol/L (98-107); GFR AFRICAN-AMERICAN > 60; GLUCOSE,RANDOM 104 mg/dL (70-110); MAGNESIUM 1.7 mg/dL (1.7-2.2); PHOSPHOROUS 3.4 mg/dL (2.5-4.5); POTASSIUM 3.5 mmol/L (3.6-5.0); SODIUM 143 mmol/L (132-148); TOTAL PROTEIN 5.8 g/dL (5.8-8.3)
[2017-03-03 06:36] LABS: INR 1.11 (0.93-1.08); PARTIAL THROMBOPLASTIN TIME 33.1 Seconds (23.7-30.8)
[2017-03-03 07:35] LABS: CALCIUM 5.7 mg/dL (8.4-10.5)
--- NOTE | 2017-03-03 08:05 | CP.PCM.PCO ---
Physician Communication Note - Physician Communication Note Physician Communication Note: Will need PAC removal-TLC (24-48Hr)-c/s Lumen first now
--- NOTE | 2017-03-03 08:06 | CP.PCM.PN ---
Subjective - Date & Time of Evaluation Date of Evaluation: 03/03/17 Time of Evaluation: 08:00 - Subjective Subjective: Surgery for Dr. Odonnell Pt s&Jules GARCIA. Low appetite. BLood culture grew G+ cocci. No complaints. Denies F/C/V/bloody BM. Objective - Vital Signs/Intake and Output Vital Signs (last 24 hours): Temp Pulse Resp BP Pulse Ox 98.4 F 87 21 162/68 H 96 03/03/17 04:00 03/03/17 06:09 03/03/17 06:09 03/03/17 06:06 03/03/17 05:43 Intake and Output: 03/03/17 03/03/17 06:59 18:59 Intake Total 1492 Output Total 830 Balance 662 - Medications Medications: Current Medications Acetaminophen (Tylenol 325mg Tab) 650 mg PO Q4 PRN PRN Reason: Fever >100.4 F Heparin Sodium (Porcine) (Heparin) 5,000 units SC Q8 JEAN CARLOS PRN Reason: Protocol Last Admin: 03/03/17 05:40 Dose: 5,000 units Meropenem 1g/NS 100mL IVPB (Meropenem 1g/Ns 100ml Ivpb) 1 gm in 100 mls @ 100 mls/hr IVPB Q12 JEAN CARLOS PRN Reason: Protocol Stop: 03/08/17 22:01 Last Admin: 03/02/17 22:15 Dose: 100 mls/hr Dextrose/Sodium Chloride (Dextrose 5%/0.9% Ns 1000 Ml) 1,000 mls @ 100 mls/hr IV .Q10H JEAN CARLOS Last Admin: 03/02/17 11:32 Dose: 100 mls/hr Amiodarone HCl/Dextrose (Nexterone 360 Mg In D5w 200 Ml (Premix)) 360 mg in 200 mls @ 33.333 mls/hr IV .Q6H JEAN CARLOS; 1 MG/MIN PRN Reason: Protocol Last Admin: 03/03/17 05:36 Dose: 33.333 mls/hr Fat Emulsion Intravenous (Intralipid 20%) 250 mls @ 21 mls/hr IV MWF [facility]AN CARLOS Stop: 03/05/17 10:01 Multivitamins/Vitamin C 10 ml/Amino Acids/Electrolytes/Dextrose 2,010 mls @ 83 mls/hr IV .Q24H JEAN CARLOS Stop: 03/05/17 14:31 Levothyroxine Sodium (Synthroid) 67.5 mcg IVP DAILY [facility] Last Admin: 03/02/17 10:12 Dose: 67.5 mcg Levothyroxine Sodium (Synthroid) 112 mcg PO DAILY [facility] Pantoprazole Sodium (Protonix Inj) 40 mg IVP Q12 JEAN CARLOS Last Admin: 03/02/17 22:16 Dose: 40 mg - Labs Labs: 03/03/17 06:15 03/03/17 06:15 PT 12.0 Seconds (9.9-11.8) H 03/03/17 06:15 INR 1.11 (0.93-1.08) H 03/03/17 06:15 APTT 33.1 Seconds (23.7-30.8) H 03/03/17 06:15 - Constitutional Appears: Non-toxic - Head Exam Head Exam: ATRAUMATIC, NORMAL INSPECTION, NORMOCEPHALIC - Eye Exam Eye Exam: EOMI, Normal appearance, PERRL Pupil Exam: NORMAL ACCOMODATION, PERRL - ENT Exam ENT Exam: Mucous Membranes Moist, Normal Exam - Neck Exam Neck Exam: Full ROM, Normal Inspection. absent: Lymphadenopathy - Respiratory Exam Respiratory Exam: Clear to Ausculation Bilateral, NORMAL BREATHING PATTERN - Cardiovascular Exam Cardiovascular Exam: REGULAR RHYTHM, +S1, +S2. absent: Murmur - GI/Abdominal Exam GI & Abdominal Exam: Soft, Normal Bowel Sounds. absent: Distended, Firm, Guarding, Rigid, Tenderness Additional comments: R chest has hepatic drain: bilious purulent output. R port in place: no signs of infection. - Back Exam Back Exam: NORMAL INSPECTION - Neurological Exam Neurological Exam: Alert, Awake, CN II-XII Intact, Oriented x3 - Psychiatric Exam Psychiatric exam: Normal Affect, Normal Mood - Skin Skin Exam: Dry, Intact, Normal Color, Warm Assessment and Plan - Assessment and Plan (Free Text) Assessment: 66F with melanotic stool s/p recent colon/liver resection at [facility] with hepatic drain. s/p chemo s/p port placement Now bacteremia Plan: Will f/u w [facility] surgeon re drain/port removal Suggested NGT or dobhoff for additional PO intake to improve nutritional status. Pt Declined. Hgb appears stable at this time. If pt has further surgical issues, she should return to her surgeons at [facility]. Phill Odonnell
[2017-03-03] MEDS ORDERED: Potassium Chloride 40 mEq/30 ml LIQ UD PO ONE (08:10)
--- NOTE | 2017-03-03 09:36 | PN ---
DATE: 03/03/2017 SUBJECTIVE: The patient appears comfortable this morning. She is not short of breath at rest. PHYSICAL EXAMINATION VITAL SIGNS: Temperature is 98.5, pulse 89, respirations 20, blood pressure 163 /81. Oxygen saturation on room air is 98%. HEAD, EARS, EYES, NOSE, AND THROAT: Normocephalic, atraumatic. No JVD. CARDIOVASCULAR: Positive S1 and S2. No S3. LUNGS: Improved breath sounds at the bases. No rhonchi. No wheezing. EXTREMITIES: Mild edema. No cyanosis. No clubbing. Calves are nontender to palpation. GASTROINTESTINAL: Abdomen is soft. It is mildly distended, but nontender to palpation. Bowel sounds are positive. SKIN: No acute rash. NEUROLOGIC: Limited at the present time. IMPRESSION 1. Sepsis syndrome. 2. Gastrointestinal bleeding. 3. Advanced, stage IV colon cancer. 4. Status post recent extensive surgery at [facility]. 5. Minimal atelectasis - right base. 6. Small bilateral pleural effusions. 7. Anemia. 8. Renal insufficiency. PLAN: The patient appears comfortable this morning. She is not short of breath at rest. She is not coughing. She does state to feeling much better overall. I did discuss the case with the night nurse at length. The night nurse stated that the patient had a good night and that the oxygen saturation is now 98% on room air. The patient is not using her incentive spirometry as instructed - I did discuss this issue with her at length this morning. I would continue with the antibiotic coverage as per infectious disease. Input by Dr. Vega is noted. The temperatures have now completely resolved. The leukocytosis has also completely resolved. Inputs by surgery and GI are noted. Clinical status of the patient is significantly improved - compared to the initial presentation. However, again, the overall status/prognosis for this patient remains very guarded at best/poor. I will discuss the above with the entire ICU team in the next few moments. I will also discuss the above with the attending physician. Ciaran Whelan MD cc: [id number] TT: 03/03/2017 09:35:52 Confirmation # [id number] Dictation # [id number] yoli [facility]
--- NOTE | 2017-03-03 09:58 | CP.PCM.PN ---
<Eli Shaikh - Last Filed: 03/03/17 11:34> Subjective - Date & Time of Evaluation Date of Evaluation: 03/03/17 Time of Evaluation: 09:50 - Subjective Subjective: ICU Progress Note Patient seen and examined at bedside. There were no acute overnight events. She is resting comfortably in bed. She denies having any pain, CP, SOB, n/v/d, numbness/tingling. She does not have much of an appetite. Objective - Vital Signs/Intake and Output Vital Signs (last 24 hours): Temp Pulse Resp BP Pulse Ox 98.4 F 87 21 162/68 H 96 03/03/17 04:00 03/03/17 06:09 03/03/17 06:09 03/03/17 06:06 03/03/17 05:43 Intake and Output: 03/03/17 03/03/17 06:59 18:59 Intake Total 1492 Output Total 830 Balance 662 - Medications Medications: Current Medications Acetaminophen (Tylenol 325mg Tab) 650 mg PO Q4 PRN PRN Reason: Fever >100.4 F Heparin Sodium (Porcine) (Heparin) 5,000 units SC Q8 JEAN CARLOS PRN Reason: Protocol Last Admin: 03/03/17 05:40 Dose: 5,000 units Meropenem 1g/NS 100mL IVPB (Meropenem 1g/Ns 100ml Ivpb) 1 gm in 100 mls @ 100 mls/hr IVPB Q12 JEAN CARLOS PRN Reason: Protocol Stop: 03/08/17 22:01 Last Admin: 03/02/17 22:15 Dose: 100 mls/hr Dextrose/Sodium Chloride (Dextrose 5%/0.9% Ns 1000 Ml) 1,000 mls @ 100 mls/hr IV .Q10H JEAN CARLOS Last Admin: 03/02/17 11:32 Dose: 100 mls/hr Amiodarone HCl/Dextrose (Nexterone 360 Mg In D5w 200 Ml (Premix)) 360 mg in 200 mls @ 33.333 mls/hr IV .Q6H JEAN CARLOS; 1 MG/MIN PRN Reason: Protocol Last Admin: 03/03/17 05:36 Dose: 33.333 mls/hr Fat Emulsion Intravenous (Intralipid 20%) 250 mls @ 21 mls/hr IV MWF JEAN CARLOS Stop: 03/05/17 10:01 Multivitamins/Vitamin C 10 ml/Amino Acids/Electrolytes/Dextrose 2,010 mls @ 83 mls/hr IV .Q24H JEAN CARLOS Stop: 03/05/17 14:31 Vancomycin HCl (Vancomycin 1gm) 1 gm in 250 mls @ 167 mls/hr IVPB Q12H JEAN CARLOS PRN Reason: Protocol Levothyroxine Sodium (Synthroid) 67.5 mcg IVP DAILY [facility] Last Admin: 03/02/17 10:12 Dose: 67.5 mcg Levothyroxine Sodium (Synthroid) 112 mcg PO DAILY [facility] Pantoprazole Sodium (Protonix Inj) 40 mg IVP Q12 JE[facility] CARLOS Last Admin: 03/02/17 22:16 Dose: 40 mg - Labs Labs: 03/03/17 06:15 03/03/17 06:15 PT 12.0 Seconds (9.9-11.8) H 03/03/17 06:15 INR 1.11 (0.93-1.08) H 03/03/17 06:15 APTT 33.1 Seconds (23.7-30.8) H 03/03/17 06:15 - Constitutional Appears: No Acute Distress, Chronically Ill - Head Exam Head Exam: ATRAUMATIC, NORMAL INSPECTION, NORMOCEPHALIC - Eye Exam Eye Exam: Normal appearance, PERRL Pupil Exam: PERRL - ENT Exam ENT Exam: Mucous Membranes Dry - Respiratory Exam Respiratory Exam: Clear to Ausculation Bilateral, NORMAL BREATHING PATTERN. absent: Rales, Rhonchi, Wheezes - Cardiovascular Exam Cardiovascular Exam: REGULAR RHYTHM, +S1, +S2. absent: Gallop, Rubs, Murmur - GI/Abdominal Exam GI & Abdominal Exam: Soft, Normal Bowel Sounds. absent: Rigid, Tenderness, Mass , Rebound Additional comments: R JESENIA drain with 30ml output overnight Midline incision with jitendra - Extremities Exam Extremities Exam: Normal Inspection. absent: Pedal Edema - Neurological Exam Neurological Exam: Alert, Awake, CN II-XII Intact, Oriented x3 - Skin Skin Exam: Dry, Normal Color, Warm Assessment and Plan - Assessment and Plan (Free Text) Assessment: This is a 66Y F with PMG of Colon cancer stage IV s/p chemo and s/p resection on February 08 at [facility]. She was admitted for sepsis secondary to pneumonia. She was in A.fib yesterday with positive blood cultures. A.fib now controlled, repeat blood cultures pending. Plan: Neuro: A&O x 3 Maintain normothermia CV: A. fib with RVR-now rate controlled Amio drip decreased- will wean down and give PO lopressor + Blood culture- can be secondary to port versus endocarditis Will await repeat BC from port and from peripheral Consider echo if repeat + Elevated troponin secondary to demand ischemia, trending down Pulm: Patient comfortable on room air Maintain SpO2>90% GI: Pt has drains and jitendra still in place Drain and staple removal as per surgery Possible plan for EGD in AM as per GI Patient tolerating diet, but has little intake On D5/NS@100 Neprho: LONG resolved Continue to monitor I&O Hypokalemia and Hypocalcemia- will continue to monitor and replace as needed Heme: Hgb stable s/p 1U PRBC no overt signs of bleeding [place] + on rectal exam Continue to monitor ID: Afebrile, no leukocytosis Continue Merrem and Vanc for pneumonia ID consulted-recs appreciated Blood culture + x 2, will await repeat BC Endo: Continue Synthroid Maintain euglycemia GI ppx: PTX DVT ppx: Heparin SC Dispo: Patient stable. Will possibly transfer today. Case seen, discussed and reviewed with attending. Farida Shaikh PGY1 <Rukhsana BROWN,Vega H - Last Filed: 03/03/17 11:59> Objective - Vital Signs/Intake and Output Vital Signs (last 24 hours): Temp Pulse Resp BP Pulse Ox 98.4 F 99 H 22 180/83 H 100 03/03/17 04:00 03/03/17 11:42 03/03/17 10:00 03/03/17 11:42 03/03/17 10:00 Intake and Output: 03/03/17 03/03/17 06:59 18:59 Intake Total 1492 Output Total 830 Balance 662 - Medications Medications: Current Medications Acetaminophen (Tylenol 325mg Tab) 650 mg PO Q4 PRN PRN Reason: Fever >100.4 F Heparin Sodium (Porcine) (Heparin) 5,000 units SC Q8 JEAN CARLOS PRN Reason: Protocol Last Admin: 03/03/17 05:40 Dose: 5,000 units Meropenem 1g/NS 100mL IVPB (Meropenem 1g/Ns 100ml Ivpb) 1 gm in 100 mls @ 100 mls/hr IVPB Q12 JEAN CARLOS PRN Reason: Protocol Stop: 03/08/17 22:01 Last Admin: 03/03/17 10:11 Dose: 100 mls/hr Dextrose/Sodium Chloride (Dextrose 5%/0.9% Ns 1000 Ml) 1,000 mls @ 100 mls/hr IV .Q10H JEAN CARLOS Last Admin: 03/02/17 11:32 Dose: 100 mls/hr Amiodarone HCl/Dextrose (Nexterone 360 Mg In D5w 200 Ml (Premix)) 360 mg in 200 mls @ 33.333 mls/hr IV .Q6H JEAN CARLOS; 1 MG/MIN PRN Reason: Protocol Last Admin: 03/03/17 05:36 Dose: 33.333 mls/hr Fat Emulsion Intravenous (Intralipid 20%) 250 mls @ 21 mls/hr IV MWF JEAN CARLOS Stop: 03/05/17 10:01 Multivitamins/Vitamin C 10 ml/Amino Acids/Electrolytes/Dextrose 2,010 mls @ 83 mls/hr IV .Q24H JEAN CARLOS Stop: 03/05/17 14:31 Vancomycin HCl (Vancomycin 1gm) 1 gm in 250 mls @ 167 mls/hr IVPB Q12H JEAN CARLOS PRN Reason: Protocol Last Admin: 03/03/17 10:11 Dose: 167 mls/hr Levothyroxine Sodium (Synthroid) 67.5 mcg IVP DAILY [facility] Last Admin: 03/02/17 10:12 Dose: 67.5 mcg Levothyroxine Sodium (Synthroid) 112 mcg PO DAILY [facility] Last Admin: 03/03/17 10:12 Dose: 112 mcg Metoprolol Tartrate (Lopressor) 25 mg PO BID JEAN CARLOS Last Admin: 03/03/17 11:42 Dose: 25 mg Pantoprazole Sodium (Protonix Inj) 40 mg IVP Q12 JEAN CARLOS Last Admin: 03/03/17 10:12 Dose: 40 mg - Labs Labs: 03/03/17 06:15 03/03/17 06:15 PT 12.0 Seconds (9.9-11.8) H 03/03/17 06:15 INR 1.11 (0.93-1.08) H 03/03/17 06:15 APTT 33.1 Seconds (23.7-30.8) H 03/03/17 06:15 Attending/Attestation - Attestation I have personally seen and examined this patient.: Yes I have fully participated in the care of the patient.: Yes I have reviewed all pertinent clinical information, including history, physical exam and plan: Yes Notes (Text): 03/03/17 11:56 Admitted for sepsis likely post op . Positive blood cx x2 Gram +. Repeat Blood cx pending. A. FIb episode resolved w/ Amiodarone overnight. Currently NSR hr 80's. HTN on Beta blockers and CEi to be started to keep sbp 140's. Diet started . Surgury request PPN, but will confirm Blood cx remain negative. Encouraged to have NGT and gut feedings. Need to remove Biliary drain by surgery, output minimal. If cx remain positive, need to follow up MRSA vs MSSA and continue vancomycin currently , ECHo pending to r/o Endocarditis if fevers continue. May need to evaluate PORT if CX are positive again. dvt p ppi cctime 65 min
[2017-03-03] MEDS: Meropenem 1g/NS 100mL IVPB 1 GM/100 ML PIGGYBACK IVPB SCH ×2 (10:11→22:16)
[2017-03-03] MEDS: Vancomycin 1gm in NS 250ml 1 GM/250 ML BAG IVPB SCH ×2 (10:11→20:00)
[2017-03-03] MEDS: Levothyroxine 112 MCG TAB PO SCH (10:12)
--- NOTE | 2017-03-03 11:41 | PN ---
DATE: 03/03/2017 I saw her in the intensive care unit. She is fairly comfortable at this time. She has no chest pain , no shortness of breath, no abdominal pain. She tells me she is not bleeding also. MEDICATIONS: She is currently on dextrose, heparin, Intralipid, Merrem IV, multivitamins, Nexterone, which is on amiodarone, Protonix, Synthroid, Tylenol, and vancomycin IV. PHYSICAL EXAMINATION: VITAL SIGNS: Temp 98.4, 87 pulse, 21 respiratory rate, 96% O2 sat on room air, and 162/68 blood pres sure. HEAD: Atraumatic, normocephalic. GENERAL: She is alert. She is talking to me. She is comfortable. Mouth is moist. NECK: Supple. HEART: Regular rate. LUNGS: Decreased breath sounds, but clear to auscultation. ABDOMEN: Soft, nontender. Positive bowel sounds. EXTREMITIES: No edema. She is status post aggressive surgery at [facility] for a colon cancer. LABORATORY DATA: She has a 9.5 white count, 9 hemoglobin, 27.3 hematocrit with 207 platelets. INR 1 .11. Sodium 143. Potassium is 3.5. I will replace the potassium. BUN is 12, creatinine 0.7. GFR is greater than 60. Sugar is 104. Calcium is 5.7. We will replace the calcium. Phosphorus is 3.4, magnesium 1.7. Total bili is 0.5. AST is 93. ALT is 51, alk phos 383, total protein 5.8. She had positive stool occult blood. She has MRSA in the nares. She is being seen by surgery, GI, infectious disease, cardiology. She has systemic inflammatory resp onse, sepsis, enteritis, colitis status post stage IV colon cancer, status post resection. Continue Merrem. Right lobe has atelectasis, and we will watch her very closely in the intensive care unit, a nd check her labs tomorrow. Wily Barton DO cc: [id number] TT: 03/03/2017 11:41:20 Confirmation # [id number] Dictation # [id number] halley
--- NOTE | 2017-03-03 11:45 | CP.PCM.PN ---
Subjective - Date & Time of Evaluation Date of Evaluation: 03/03/17 Time of Evaluation: 09:30 - Subjective Subjective: Patient is comfortable in bed, no fevers overnight, not in distress. Objective - Vital Signs/Intake and Output Vital Signs (last 24 hours): Temp Pulse Resp BP Pulse Ox 98.4 F 87 21 162/68 H 96 03/03/17 04:00 03/03/17 06:09 03/03/17 06:09 03/03/17 06:06 03/03/17 05:43 Intake and Output: 03/03/17 03/03/17 06:59 18:59 Intake Total 1492 Output Total 830 Balance 662 - Medications Medications: Current Medications Acetaminophen (Tylenol 325mg Tab) 650 mg PO Q4 PRN PRN Reason: Fever >100.4 F Heparin Sodium (Porcine) (Heparin) 5,000 units SC Q8 JEAN CARLOS PRN Reason: Protocol Last Admin: 03/03/17 05:40 Dose: 5,000 units Meropenem 1g/NS 100mL IVPB (Meropenem 1g/Ns 100ml Ivpb) 1 gm in 100 mls @ 100 mls/hr IVPB Q12 JEAN CARLOS PRN Reason: Protocol Stop: 03/08/17 22:01 Last Admin: 03/02/17 22:15 Dose: 100 mls/hr Dextrose/Sodium Chloride (Dextrose 5%/0.9% Ns 1000 Ml) 1,000 mls @ 100 mls/hr IV .Q10H JEAN CARLOS Last Admin: 03/02/17 11:32 Dose: 100 mls/hr Amiodarone HCl/Dextrose (Nexterone 360 Mg In D5w 200 Ml (Premix)) 360 mg in 200 mls @ 33.333 mls/hr IV .Q6H JEAN CARLOS; 1 MG/MIN PRN Reason: Protocol Last Admin: 03/03/17 05:36 Dose: 33.333 mls/hr Fat Emulsion Intravenous (Intralipid 20%) 250 mls @ 21 mls/hr IV MWF JEAN CARLOS Stop: 03/05/17 10:01 Multivitamins/Vitamin C 10 ml/Amino Acids/Electrolytes/Dextrose 2,010 mls @ 83 mls/hr IV .Q24H JEAN CARLOS Stop: 03/05/17 14:31 Levothyroxine Sodium (Synthroid) 67.5 mcg IVP DAILY [facility] Last Admin: 03/02/17 10:12 Dose: 67.5 mcg Levothyroxine Sodium (Synthroid) 112 mcg PO DAILY [facility] Pantoprazole Sodium (Protonix Inj) 40 mg IVP Q12 [facility] Last Admin: 03/02/17 22:16 Dose: 40 mg - Labs Labs: 03/03/17 06:15 03/03/17 06:15 PT 12.0 Seconds (9.9-11.8) H 03/03/17 06:15 INR 1.11 (0.93-1.08) H 03/03/17 06:15 APTT 33.1 Seconds (23.7-30.8) H 03/03/17 06:15 - Constitutional Appears: Non-toxic, No Acute Distress - Head Exam Head Exam: NORMAL INSPECTION - ENT Exam ENT Exam: Mucous Membranes Moist - Neck Exam Neck Exam: absent: Lymphadenopathy, Meningismus - Respiratory Exam Respiratory Exam: Decreased Breath Sounds Additional comments: anterior chest wall port-a-cath in place - Cardiovascular Exam Cardiovascular Exam: +S1, +S2 - GI/Abdominal Exam GI & Abdominal Exam: Soft. absent: Tenderness Additional comments: right sided catheter on the border of the chest wall and abdominal area in place Assessment and Plan - Assessment and Plan (Free Text) Plan: Assessment Systemic Inflammatory Response Syndrome, R/O sepsis due to enteritis/ colitis in a patient who is presenting with melena and just underwent surgery for colon cancer last month; also with gram positive cocci bacteremia, need to rule out port infection stage 4 colon cancer, S/P colon resection at [facility] Feb 08 2017 probable recurrent pleural effusions S/P pleurex catheter placement indwelling Castro catheter history of diverticulitis chronic renal failure Plan continue Merrem day 3 and add Vancomycin IV; will follow up identification and sensitivities of the gram positive cocci in the blood and follow up repeat blood cx ; will also order 2D echo; reviewed CT abdomen and pelvis and discussed with Dr. Whelan - right lower lobe is probably more atelectasis will continue to follow clinically
--- NOTE | 2017-03-03 17:58 | PN ---
DATE: 03/03/2017 SUBJECTIVE: This patient was seen and evaluated earlier today. The patient comfortable. PHYSICAL EXAMINATION: VITAL SIGNS: Temperature is 98.4, pulse 89, blood pressure /100. HEENT: Atraumatic, anicteric. NECK: Supple. HEART: S1, S2 heard. LUNGS: Bilateral air entry present. ABDOMEN: Soft. The drainage tube present in the right upper quadrant area. No rebound or guarding. Surgical incision noticed. LABORATORY DATA: Hemoglobin 9, hematocrit 27.3, WBC is 9.5, platelets 207. BUN 12, creatinine 0.7. LFTs showing alkaline phosphatase at 383. AST 93, ALT is 51. IMPRESSION: 1. A 66-year-old patient status post hepatic wedge resection, cholecystectomy and colon resection, h istory of colon cancer, was admitted with a history of melena before weakness, and the patient was al so having systemic inflammatory response syndrome sepsis. The patient's blood cultures are positive for gram-negative. 2. The patient has a poor p.o. intake, nutritionally intake. She said this happened after the surgery. She has no problem swallowing, but she states no appetite. 3. History of atrial fibrillation with rapid ventricular response, now converted to sinus rhythm. RECOMMENDATIONS: Would recommend followup of the hemoglobin and hematocrit. The patient has been on antibiotics for sepsis. The patient would benefit from the endoscopic evaluation. We will discuss with the team regarding the timing of the endoscopic evaluation. Thank you very much for allowing us to participate in the care of the patient. Jace Fernandez MD cc: [phone] TT: 03/03/2017 17:58:19 Confirmation # [id number] Dictation # [id number] sherman
[2017-03-03] MEDS: Dextrose 5%/0.9% NS 1,000 ML IV SCH (20:00)
[2017-03-04] MEDS ORDERED: Amiodarone 150 mg/D5W 100 ml 150 MG/100 ML BAG IVPB ONE (04:50)
--- NOTE | 2017-03-04 04:52 | CP.PCM.PN ---
Subjective - Date & Time of Evaluation Date of Evaluation: 03/04/17 Time of Evaluation: 04:51 - Subjective Subjective: 150/97 HR 150's. PULSE OX 98% ON RA. Objective - Vital Signs/Intake and Output Vital Signs (last 24 hours): Temp Pulse Resp BP Pulse Ox 97.8 F 82 29 H 180/81 H 100 03/03/17 20:00 03/03/17 23:00 03/03/17 23:00 03/03/17 22:00 03/03/17 23:00 Intake and Output: 03/03/17 03/04/17 18:59 06:59 Intake Total 1860 Output Total 910 Balance 950 - Medications Medications: Current Medications Acetaminophen (Tylenol 325mg Tab) 650 mg PO Q4 PRN PRN Reason: Fever >100.4 F Heparin Sodium (Porcine) (Heparin) 5,000 units SC Q8 JEAN CARLOS PRN Reason: Protocol Last Admin: 03/03/17 22:16 Dose: 5,000 units Meropenem 1g/NS 100mL IVPB (Meropenem 1g/Ns 100ml Ivpb) 1 gm in 100 mls @ 100 mls/hr IVPB Q12 [facility]AN CARLOS PRN Reason: Protocol Stop: 03/08/17 22:01 Last Admin: 03/03/17 22:16 Dose: 100 mls/hr Dextrose/Sodium Chloride (Dextrose 5%/0.9% Ns 1000 Ml) 1,000 mls @ 100 mls/hr IV .Q10H [facility] Last Admin: 03/03/17 20:00 Dose: 100 mls/hr Fat Emulsion Intravenous (Intralipid 20%) 250 mls @ 21 mls/hr IV MWF [facility]OS Stop: 03/05/17 10:01 Multivitamins/Vitamin C 10 ml/Amino Acids/Electrolytes/Dextrose 2,010 mls @ 83 mls/hr IV .Q24H [facility]AN CARLOS Stop: 03/05/17 14:31 Vancomycin HCl (Vancomycin 1gm) 1 gm in 250 mls @ 167 mls/hr IVPB Q12H JEAN CARLOS PRN Reason: Protocol Last Admin: 03/03/17 20:00 Dose: 167 mls/hr Levothyroxine Sodium (Synthroid) 67.5 mcg IVP DAILY [facility] Last Admin: 03/02/17 10:12 Dose: 67.5 mcg Levothyroxine Sodium (Synthroid) 112 mcg PO DAILY [facility] Last Admin: 03/03/17 10:12 Dose: 112 mcg Lisinopril (Zestril) 10 mg PO DAILY [facility] Last Admin: 03/03/17 15:39 Dose: 10 mg Metoprolol Tartrate (Lopressor) 25 mg PO BID [facility] Last Admin: 03/03/17 19:10 Dose: 25 mg Pantoprazole Sodium (Protonix Inj) 40 mg IVP Q12 [facility] Last Admin: 03/03/17 22:23 Dose: 40 mg - Labs Labs: 03/03/17 06:15 03/03/17 06:15 PT 12.0 Seconds (9.9-11.8) H 03/03/17 06:15 INR 1.11 (0.93-1.08) H 03/03/17 06:15 APTT 33.1 Seconds (23.7-30.8) H 03/03/17 06:15
--- NOTE | 2017-03-04 05:54 | CP.PCM.PN ---
Subjective - Date & Time of Evaluation Date of Evaluation: 03/04/17 Time of Evaluation: 05:52 - Subjective Subjective: She was seen for HR 180's. SVT. BP 151/97. Patient was seen at bedside. She has no complaints. Denies chest pain, sob, nausea, sweating ,palpitations. Medical record was reviewed. This 66 years old woman was admitted with bloody stools , melena. Has PMH of colon cancer, colon resection, Chemotherapy, HTN, thyroid disease. Objective - Vital Signs/Intake and Output Vital Signs (last 24 hours): Temp Pulse Resp BP Pulse Ox 98.2 F 164 H 24 151/97 H 97 03/04/17 04:00 03/04/17 05:00 03/04/17 05:00 03/04/17 04:01 03/04/17 05:00 Intake and Output: 03/03/17 03/04/17 18:59 06:59 Intake Total 1860 Output Total 910 Balance 950 - Medications Medications: Current Medications Acetaminophen (Tylenol 325mg Tab) 650 mg PO Q4 PRN PRN Reason: Fever >100.4 F Heparin Sodium (Porcine) (Heparin) 5,000 units SC Q8 [facility] PRN Reason: Protocol Last Admin: 03/04/17 05:23 Dose: 5,000 units Meropenem 1g/NS 100mL IVPB (Meropenem 1g/Ns 100ml Ivpb) 1 gm in 100 mls @ 100 mls/hr IVPB Q12 [facility]LOS PRN Reason: Protocol Stop: 03/08/17 22:01 Last Admin: 03/03/17 22:16 Dose: 100 mls/hr Dextrose/Sodium Chloride (Dextrose 5%/0.9% Ns 1000 Ml) 1,000 mls @ 100 mls/hr IV .Q10H [facility] Last Admin: 03/03/17 20:00 Dose: 100 mls/hr Fat Emulsion Intravenous (Intralipid 20%) 250 mls @ 21 mls/hr IV MWF [facility] CARL[facility] Stop: 03/05/17 10:01 Multivitamins/Vitamin C 10 ml/Amino Acids/Electrolytes/Dextrose 2,010 mls @ 83 mls/hr IV .Q24H [facility] Stop: 03/05/17 14:31 Vancomycin HCl (Vancomycin 1gm) 1 gm in 250 mls @ 167 mls/hr IVPB Q12H [facility] PRN Reason: Protocol Last Admin: 03/03/17 20:00 Dose: 167 mls/hr Levothyroxine Sodium (Synthroid) 67.5 mcg IVP DAILY [facility] Last Admin: 03/02/17 10:12 Dose: 67.5 mcg Levothyroxine Sodium (Synthroid) 112 mcg PO DAILY [facility] Last Admin: 03/03/17 10:12 Dose: 112 mcg Lisinopril (Zestril) 10 mg PO DAILY [facility] Last Admin: 03/03/17 15:39 Dose: 10 mg Metoprolol Tartrate (Lopressor) 25 mg PO BID [facility] Last Admin: 03/03/17 19:10 Dose: 25 mg Pantoprazole Sodium (Protonix Inj) 40 mg IVP Q12 [facility] Last Admin: 03/03/17 22:23 Dose: 40 mg - Labs Labs: 03/03/17 06:15 03/03/17 06:15 PT 12.0 Seconds (9.9-11.8) H 03/03/17 06:15 INR 1.11 (0.93-1.08) H 03/03/17 06:15 APTT 33.1 Seconds (23.7-30.8) H 03/03/17 06:15 - Constitutional Appears: Well, No Acute Distress - Head Exam Head Exam: ATRAUMATIC, NORMAL INSPECTION, NORMOCEPHALIC - Eye Exam Eye Exam: Normal appearance - ENT Exam ENT Exam: Normal External Ear Exam - Neck Exam Neck Exam: Normal Inspection - Respiratory Exam Respiratory Exam: NORMAL BREATHING PATTERN - Cardiovascular Exam Cardiovascular Exam: absent: JVD - GI/Abdominal Exam GI & Abdominal Exam: absent: Distended - Rectal Exam Rectal Exam: Deferred - Extremities Exam Extremities Exam: Normal Inspection - Back Exam Back Exam: NORMAL INSPECTION - Neurological Exam Neurological Exam: Alert, Awake - Psychiatric Exam Psychiatric exam: Normal Affect, Normal Mood - Skin Skin Exam: Normal Color Assessment and Plan - Assessment and Plan (Free Text) Assessment: SVT. Colon cancer. Thyroid disease. HTN S/P colon resection. Anemia. Leukocytosis. Plan: Amiodarone 150 mg IVPB ordered. HR came down to 91/min in 10 minutes. With AM CMP, mag, phos were added in AM Labs. Continue present management.
[2017-03-04 06:42] LABS: ADD MANUAL DIFF? NO
[2017-03-04 06:59] LABS: INR 1.17 (0.93-1.08); PARTIAL THROMBOPLASTIN TIME 41.1 Seconds (23.7-30.8)
[2017-03-04 07:03] LABS: ALB/GLOB RATIO 0.8 (1.1-1.8); ALKALINE PHOSPHATASE 363 U/L (38-133); ALT/SGPT 58 U/L (7-56); AST/SGOT 93 U/L (15-39); BILIRUBIN,TOTAL 0.5 mg/dL (0.2-1.3); BLOOD UREA NITROGEN 5 mg/dL (7-21); CARBON DIOXIDE 24 mmol/L (21-33); CHLORIDE 110 mmol/L (98-107); GFR AFRICAN-AMERICAN > 60; GLUCOSE,RANDOM 102 mg/dL (70-110); MAGNESIUM 1.2 mg/dL (1.7-2.2); PHOSPHOROUS 3.5 mg/dL (2.5-4.5); POTASSIUM 3.1 mmol/L (3.6-5.0); SODIUM 141 mmol/L (132-148); TOTAL PROTEIN 5.6 g/dL (5.8-8.3)
[2017-03-04 07:13] LABS: CALCIUM 5.3 mg/dL (8.4-10.5)
[2017-03-04 07:18] LABS: BASO # 0.03 K/mm3 (0.0-2.0); BASO % 0.4 % (0.0-3.0); EOS # 0.4 (0.0-0.7); EOS % 6.4 % (1.5-5.0); GRAN # 4.29 (1.4-6.5); GRAN % 63.6 % (50.0-68.0); HEMATOCRIT 27.6 % (36.0-48.0); LYMPH # 1.5 (1.2-3.4); LYMPH % 21.5 % (22.0-35.0); MEAN CELL VOLUME 88.5 fL (80.0-105.0); MEAN CORPUSCULAR HEMOGLOBIN 28.8 pg (25.0-35.0); MEAN CORPUSCULAR HGB CONC 32.6 g/dl (31.0-37.0); MEAN PLATELET VOLUME 9.1 fl (7.0-11.0); MONO # 0.6 (0.1-0.6); MONO % 8.1 % (1.0-6.0); PLATELET COUNT 251 10^3/uL (120.0-450.0); RED CELL DISTRIBUTION WIDTH 19.4 % (11.5-14.5); WHITE BLOOD COUNT 6.8 10^3/ul (4.5-11.0)
--- NOTE | 2017-03-04 07:39 | PN ---
DATE: 03/04/2017 SUBJECTIVE: The patient appears comfortable this morning. She is not short of breath at rest. OBJECTIVE: VITAL SIGNS: Temperature is 98.2, pulse 97, respirations 19, blood pressure 133 /71. Oxygen saturation on room air is 97%. HEENT: Normocephalic, atraumatic. No JVD. CARDIOVASCULAR: Positive S1, S2. No S3. LUNGS: Better breath sounds at the bases. No rhonchi. No wheezing. EXTREMITIES: Mild edema. No cyanosis, no clubbing. Calves are nontender to palpation. GASTROINTESTINAL: Abdomen is soft. It is mildly distended, but nontender to palpation. Bowel sounds are positive. SKIN: No acute rash. NEUROLOGIC: Limited at the present time. IMPRESSION: 1. Sepsis syndrome. 2. Gastrointestinal bleeding. 3. Advanced, stage IV colon cancer. 4. Status post recent extensive surgery at [facility]. 5. Minimal atelectasis -- right base. 6. Small bilateral pleural effusions. 7. Anemia. 8. Renal insufficiency. PLAN: The patient appears comfortable this morning. She is not short of breath at rest. She is not coughing. She does state to feeling better overall. I did discuss the case with the night nurse at length. The night nurse stated that the patient had a very good night. On physical exam, there is no significant bronchospasm noted. In addition, the oxygen saturation on room air is now 97%. I will continue with the frequent incentive spirometry usage. I would also like to see the patient out of bed if possible. The patient remains on antibiotic therapy -- as per Infectious Disease. The temperatures have completely resolved. The leukocytosis has also fully resolved. GI and surgical evaluations are noted. Clinical status of the patient is certainly improved -- compared to the initial presentation. However , again, the overall status/prognosis of this patient remains poor/very guarded at best. I will discuss the above with the entire ICU Team in the next few moments. I will also discuss the above with Dr. Barton later this morning. Ciaran Whelan MD cc: [id number] TT: 03/04/2017 07:38:27 Confirmation # [id number] Dictation # [id number] jn MABEL
[2017-03-04] MEDS ORDERED: Magnesium Sulfate 2 GM in Sodium Chloride 0.9% 100 ML IVPB ONE (07:45)
--- NOTE | 2017-03-04 08:00 | CON ---
DATE: 03/01/2017 ADDENDUM This is an addendum to the GI consultation report dictated by Vanessa Garcia APN. This 66-year-old pat ient with a history of stage IV colon cancer, had a colon resection along with hepatic lobe resection on 02/08/2017. The patient was brought to the ER with weakness, lethargic. The patient also had a history of melenotic stool for 2-3 days' time. The patient was found to have a hemoglobin of 9.1. G I consult was requested to evaluate the GI bleeding. The patient was also found to have enteritis, s epsis. The patient also has a PleurX catheter for recurrent pleural effusion. This 66-year-old patient had colon cancer. Had status post chemoradiation 10 years ago, recently had a hepatic resection done, 3 masses removed from the liver on 02/05. She also had removal of the gal lbladder and part of the liver. Had a partial colectomy. The patient was discharged from the [facility] on 02/23. The patient was in subacute rehab facility. She was found to have fever, chills and has lo ose bowel movements, dark melanotic stools. Brought to the Emergency Room. The patient was found to be septic. No further episodes of dark stool actually. Rectal examination earlier had only dark gr een stool. Abdomen soft. PleurX catheter was in place. The plan is to continue the antibiotics. F ollowup of the hemoglobin, hematocrit. Surgical followup. Thank you very much for allowing us to participate in the care of the patient. Jace Fernandez MD cc: [id number] TT: 03/02/2017 09:11:56 Confirmation # [id number] Dictation # [id number] halley
--- NOTE | 2017-03-04 08:05 | CP.PCM.PCO ---
Physician Communication Note - Physician Communication Note Physician Communication Note: Concur GI: EGD/ECHO--PAC Replace/PEG/Cholangiogram
--- NOTE | 2017-03-04 08:28 | CP.PCM.PN ---
Subjective - Date & Time of Evaluation Date of Evaluation: 03/04/17 Time of Evaluation: 07:30 - Subjective Subjective: General Surgery Progress Note for Dr. Odonnell Patient seen and examined at bedside. Patient's hepatic drain fell out while she is sitting on a chair. Patient had an episode of asymptomatic SVT @170bpm overnight, amiodarone was given and patient converted back to NSR. Currently patient is resting in bed comfortably without any complaints. Denies headache, fever, chills, shortness of breath, chest pain, nausea vomiting, or diarrhea. Objective - Vital Signs/Intake and Output Vital Signs (last 24 hours): Temp Pulse Resp BP Pulse Ox 98.2 F 97 H 19 133/71 97 03/04/17 04:00 03/04/17 06:00 03/04/17 05:26 03/04/17 06:00 03/04/17 06:00 Intake and Output: 03/04/17 03/04/17 06:59 18:59 Intake Total 1550 Output Total 1610 Balance -60 - Medications Medications: Current Medications Acetaminophen (Tylenol 325mg Tab) 650 mg PO Q4 PRN PRN Reason: Fever >100.4 F Heparin Sodium (Porcine) (Heparin) 5,000 units SC Q8 [facility] CARLOS PRN Reason: Protocol Last Admin: 03/04/17 05:23 Dose: 5,000 units Meropenem 1g/NS 100mL IVPB (Meropenem 1g/Ns 100ml Ivpb) 1 gm in 100 mls @ 100 mls/hr IVPB Q12 [facility] CARLOS PRN Reason: Protocol Stop: 03/08/17 22:01 Last Admin: 03/03/17 22:16 Dose: 100 mls/hr Dextrose/Sodium Chloride (Dextrose 5%/0.9% Ns 1000 Ml) 1,000 mls @ 100 mls/hr IV .Q10H [facility] Last Admin: 03/03/17 20:00 Dose: 100 mls/hr Fat Emulsion Intravenous (Intralipid 20%) 250 mls @ 21 mls/hr IV MWF [facility] Stop: 03/05/17 10:01 Multivitamins/Vitamin C 10 ml/Amino Acids/Electrolytes/Dextrose 2,010 mls @ 83 mls/hr IV .Q24H [facility] Stop: 03/05/17 14:31 Vancomycin HCl (Vancomycin 1gm) 1 gm in 250 mls @ 167 mls/hr IVPB Q12H [facility] PRN Reason: Protocol Last Admin: 03/03/17 20:00 Dose: 167 mls/hr Calcium Gluconate 1,000 mg/ (Sodium Chloride) 110 mls @ 110 mls/hr IVPB ONCE ONE Stop: 03/04/17 08:44 Magnesium Sulfate 2 gm/ Sodium (Chloride) 104 mls @ 102 mls/hr IVPB ONCE ONE Stop: 03/04/17 08:46 Potassium Chloride (Potassium Chloride 10 Meq/100 Ml) 10 meq in 100 mls @ 100 mls/hr IVPB Q2H [facility] Stop: 03/04/17 11:29 Levothyroxine Sodium (Synthroid) 67.5 mcg IVP DAILY [facility] Last Admin: 03/02/17 10:12 Dose: 67.5 mcg Levothyroxine Sodium (Synthroid) 112 mcg PO DAILY [facility] Last Admin: 03/03/17 10:12 Dose: 112 mcg Lisinopril (Zestril) 10 mg PO DAILY [facility] Last Admin: 03/03/17 15:39 Dose: 10 mg Metoprolol Tartrate (Lopressor) 25 mg PO BID [facility] Last Admin: 03/03/17 19:10 Dose: 25 mg Pantoprazole Sodium (Protonix Inj) 40 mg IVP Q12 [facility] Last Admin: 03/03/17 22:23 Dose: 40 mg - Labs Labs: 03/04/17 05:45 03/04/17 05:45 PT 12.6 Seconds (9.9-11.8) H 03/04/17 05:45 INR 1.17 (0.93-1.08) H 03/04/17 05:45 APTT 41.1 Seconds (23.7-30.8) H 03/04/17 05:45 - Constitutional Appears: Non-toxic, No Acute Distress - Head Exam Head Exam: ATRAUMATIC, NORMAL INSPECTION - Eye Exam Eye Exam: EOMI, Normal appearance - ENT Exam ENT Exam: Mucous Membranes Moist - Respiratory Exam Respiratory Exam: absent: Respiratory Distress - Cardiovascular Exam Cardiovascular Exam: +S1, +S2 Additional comments: Right chest port present. No erythema, tenderness or edema appreciated. - GI/Abdominal Exam GI & Abdominal Exam: Soft Additional comments: Right abdominal wound dressing clean, dry, no signs of infection appreciated - Extremities Exam Extremities Exam: Normal Capillary Refill - Neurological Exam Neurological Exam: Alert, Awake, Oriented x3 - Skin Skin Exam: Dry, Warm Assessment and Plan - Assessment and Plan (Free Text) Assessment: 66F with melanotic stool s/p recent colon/liver resection at [facility] with hepatic drain. s/p chemo s/p port placement. Patient was found to have bacteremia. Plan: -Pt Will to f/u at [facility] surgeon for port removal and further surgical issues -Pt declined NGT or dobhoff -H/H stable at this time -Medical management per ICU/Primary team -D/w attending Dr. Odonnell
--- NOTE | 2017-03-04 08:40 | PN ---
DATE: 03/04/2017 I saw the patient in the intensive care unit. She slept fairly well. The nurses tell me she had mor e rapid AFib last night and had to get IV Cardizem. The second time this happened in 2 nights. I wi ll call on Dr. Willie House, the freight shipping agent, for his evaluation. Overall, she is doing a bit better as far as her abdominal pain and any type of bleeding; none has been seen. PHYSICAL EXAMINATION: VITAL SIGNS: She has a 98.2 temp; 136 pulse, down to 97; 133/71 blood pressure. Highest the pulse w as 164. 97% O2 sat on room air. HEAD: Atraumatic, normocephalic. Throat is moist. NECK: Supple. HEART: Regular rate right now. LUNGS: Decreased breath sounds but clear to auscultation. ABDOMEN: Soft. Positive bowel sounds. EXTREMITIES: No edema. MEDICATIONS: She is on calcium, dextrose, heparin, Intralipid, Lopressor, magnesium, Merrem, multivi tamin, Protonix, Synthroid, Tylenol, vancomycin, Zestril. She had amiodarone IV. LABORATORY DATA: She has a 6.8 white count, 9 hemoglobin, 27.6 hematocrit with 251 platelets. INR 1 .17. She has a 141 sodium, potassium is down to 3.1 (I am going to replace the potassium), BUN is 5, creatinine 0.6, GFR is greater than 60, sugar is 103, calcium is also low at 5.3. AST is 93, ALT is 58, alk phos 363 and total protein is 5.6. She got a urinary tract infection. She is being seen by surgery, pulmonology, infectious disease, an d I will call on cardiology. She has sepsis syndrome, gastrointestinal bleeding; advanced stage IV colon cancer, status post surge ry at [facility]; minimal atelectasis, small bilateral pleura l effusions, anemia, renal insufficiency. Now she is having rapid atrial fibrillation. Continue with aggressive treatment and care in the intensive care unit. I was hoping to get her out, but now with another AFib we are going to keep her 1 more night. Wily Barton DO cc: [id number] TT: 03/04/2017 08:40:15 Confirmation # [id number] Dictation # [id number] mn
[2017-03-04] MEDS: Levothyroxine 112 MCG TAB PO SCH (09:07)
[2017-03-04] MEDS: Vancomycin 1gm in NS 250ml 1 GM/250 ML BAG IVPB SCH (09:35)
[2017-03-04] MEDS: Meropenem 1g/NS 100mL IVPB 1 GM/100 ML PIGGYBACK IVPB SCH ×2 (09:36→21:33)
[2017-03-04] MEDS ORDERED: DAPTOmycin 500 mg Inj (Cubicin) IV SCH (09:45)
[2017-03-04] MEDS ORDERED: Fat Emulsion 20% IV 250 ML IV SCH (10:00)
[2017-03-04] MEDS ORDERED: Barium Sulfate for Susp 96% w/w 176g Bottle PR ONE (10:53)
--- NOTE | 2017-03-04 11:17 | CP.PCM.PN ---
Subjective - Date & Time of Evaluation Date of Evaluation: 03/04/17 Time of Evaluation: 09:20 - Subjective Subjective: Patient is currently comfortable in bed, not in distress, afebrile. No abdominal pain. Still feels weak. Objective - Vital Signs/Intake and Output Vital Signs (last 24 hours): Temp Pulse Resp BP Pulse Ox 98.2 F 97 H 19 133/71 97 03/04/17 04:00 03/04/17 06:00 03/04/17 05:26 03/04/17 06:00 03/04/17 06:00 Intake and Output: 03/04/17 03/04/17 06:59 18:59 Intake Total 1550 Output Total 1610 Balance -60 - Medications Medications: Current Medications Acetaminophen (Tylenol 325mg Tab) 650 mg PO Q4 PRN PRN Reason: Fever >100.4 F Heparin Sodium (Porcine) (Heparin) 5,000 units SC Q8 [facility] CARLOS PRN Reason: Protocol Last Admin: 03/04/17 05:23 Dose: 5,000 units Meropenem 1g/NS 100mL IVPB (Meropenem 1g/Ns 100ml Ivpb) 1 gm in 100 mls @ 100 mls/hr IVPB Q12 [facility] CARL[facility] PRN Reason: Protocol Stop: 03/08/17 22:01 Last Admin: 03/03/17 22:16 Dose: 100 mls/hr Dextrose/Sodium Chloride (Dextrose 5%/0.9% Ns 1000 Ml) 1,000 mls @ 100 mls/hr IV .Q10H [facility] Last Admin: 03/03/17 20:00 Dose: 100 mls/hr Fat Emulsion Intravenous (Intralipid 20%) 250 mls @ 21 mls/hr IV MWF [facility] Stop: 03/05/17 10:01 Multivitamins/Vitamin C 10 ml/Amino Acids/Electrolytes/Dextrose 2,010 mls @ 83 mls/hr IV .Q24H [facility] Stop: 03/05/17 14:31 Vancomycin HCl (Vancomycin 1gm) 1 gm in 250 mls @ 167 mls/hr IVPB Q12H [facility] PRN Reason: Protocol Last Admin: 03/03/17 20:00 Dose: 167 mls/hr Calcium Gluconate 1,000 mg/ (Sodium Chloride) 110 mls @ 110 mls/hr IVPB ONCE ONE Stop: 03/04/17 08:44 Magnesium Sulfate 2 gm/ Sodium (Chloride) 104 mls @ 102 mls/hr IVPB ONCE ONE Stop: 03/04/17 08:46 Potassium Chloride (Potassium Chloride 10 Meq/100 Ml) 10 meq in 100 mls @ 100 mls/hr IVPB Q2H [facility] Stop: 03/04/17 11:29 Levothyroxine Sodium (Synthroid) 67.5 mcg IVP DAILY [facility] Last Admin: 03/02/17 10:12 Dose: 67.5 mcg Levothyroxine Sodium (Synthroid) 112 mcg PO DAILY [facility] Last Admin: 03/03/17 10:12 Dose: 112 mcg Lisinopril (Zestril) 10 mg PO DAILY [facility] Last Admin: 03/03/17 15:39 Dose: 10 mg Metoprolol Tartrate (Lopressor) 25 mg PO BID [facility] Last Admin: 03/03/17 19:10 Dose: 25 mg Pantoprazole Sodium (Protonix Inj) 40 mg IVP Q12 [facility] Last Admin: 03/03/17 22:23 Dose: 40 mg - Labs Labs: 03/04/17 05:45 03/04/17 05:45 PT 12.6 Seconds (9.9-11.8) H 03/04/17 05:45 INR 1.17 (0.93-1.08) H 03/04/17 05:45 APTT 41.1 Seconds (23.7-30.8) H 03/04/17 05:45 - Constitutional Appears: Chronically Ill - Head Exam Head Exam: NORMAL INSPECTION - ENT Exam ENT Exam: Mucous Membranes Moist - Neck Exam Neck Exam: absent: Lymphadenopathy, Meningismus - Respiratory Exam Respiratory Exam: Decreased Breath Sounds - Cardiovascular Exam Cardiovascular Exam: +S1, +S2 - GI/Abdominal Exam GI & Abdominal Exam: Soft. absent: Tenderness Assessment and Plan - Assessment and Plan (Free Text) Plan: Assessment Systemic Inflammatory Response Syndrome, consider sepsis due to enteritis/ colitis in a patient who is presenting with melena and just underwent surgery for colon cancer last month; also with Enterococcus bacteremia, need to rule out port infection stage 4 colon cancer, S/P colon resection at [facility] Feb 08 2017 probable recurrent pleural effusions S/P pleurex catheter placement indwelling Castro catheter history of diverticulitis chronic renal failure Plan continue Merrem day 4 and add Daptomycin IV; will follow up sensitivities of the Enterococci in the blood and follow up repeat blood cx ; will also order 2D echo; reviewed CT abdomen and pelvis and discussed with Dr. Whelan - right lower lobe is probably more atelectasis will continue to monitor clinically
[2017-03-04] MEDS: Dextrose 5%/0.9% NS 1,000 ML IV SCH (13:00)
--- NOTE | 2017-03-04 13:10 | PN ---
DATE: 03/04/2017 Seen and examined earlier today at the bedside. The patient is awake and alert. Denies any nausea, vomiting. Abdominal discomfort is much improved. No reports of any overt GI bleed. The patient sta antoinette that her drainage tube in the right upper quadrant fell out when she got up to go in the chair ye sterday. Last night, patient reported to have SVT, heart rate 180s. The patient received some amiod arone. Heart rate is stable now. Denies any shortness of breath or chest pain. VITAL SIGNS: Temperature is 98.2, blood pressure 155/77, heart rate 94, respirations 13, 94% O2 satu ration. LABORATORIES: WBC is 6.8, H and H is 9.0 and 27.6, platelets is 251. PT is 12.6, INR is 1.17, PTT i s 41.1. Chem: Sodium is 141, K 3.1, BUN 5, creatinine 0.6, her calcium is at 5.3, magnesium 1.2. T otal bilirubin 0.5, AST 93, ALT 58, alkaline phosphatase is 363. Total CK is 33. The patient's blo od cultures is positive for VRE. PHYSICAL EXAMINATION: HEENT: Sclera is anicteric. NECK: Supple. CARDIAC: S1, S2. LUNG SOUNDS: With decreased breath sounds at the bases, but clear. ABDOMEN: With bowel sounds, soft, nontender. She has her surgical incision with a few jitendra. It is dry and intact, no erythema. The area where she had the right upper drainage cap dressing is not tender. NEUROLOGIC: The patient is awake, alert, and oriented. ASSESSMENT: This is a 66-year-old female with a history of colon cancer, status post hepatic wedge r esection, colon resection and cholecystectomy. Admitted with weakness and melena. The patient with systemic inflammatory response syndrome, sepsis, now positive blood cultures for vancomycin-resistant Enterococcus, poor oral intake after surgery with some complaints of difficulty swallowing, more lik e food getting stuck. The patient does have a history of atrial fibrillation. Now, patient with rap id ventricular response. Anemia, status post 1 unit of packed red blood cells. PLAN: Originally, planned for endoscopy if cleared by anesthesiology today, but patient is positive vancomycin-resistant Enterococcus. Endoscopy on hold. The patient did complain of some problems wit h swallowing such as feeling of food getting stuck. We will request for an esophagogram and resume h er diet afterwards. Continue PPI, is on Protonix q. 12. The patient is on heparin subQ. The patien brandy is being followed by ID and is started on daptomycin. She is also on meropenem. Her partial paren teral nutrition is on hold. The patient is currently on as per ICU team, ID and cardiology and pulmonary. The patient was seen and case discussed with Dr. Fernandez. Also previously discussed with Dr. Sangeeta cook. Vanessa ROTHMAN cc: [id number] TT: 03/04/2017 13:09:34 Confirmation # [id number] Dictation # [id number]
--- NOTE | 2017-03-04 13:18 | RAD ---
HISTORY: Dysphagia. COMPARISON: None. TECHNIQUE: Single-contrast esophagram was performed in supine position due to patient's clinical condition. FINDINGS: Patient tolerated procedure well. ESOPHAGUS: The esophagus is normal in contour and caliber. There are smooth passage of barium from the esophagus into the stomach. There is no evidence of mass or stricture. There are minimal tertiary contractions in the esophagus with HIATAL HERNIA: No evidence of hiatal hernia. GASTROESOPHAGEAL REFLUX: No evidence of spontaneous gastroesophageal reflux. OTHER FINDINGS: The total fluoroscopic time was 1.9 minutes. IMPRESSION: Limited esophagram as a single-contrast examination was performed in supine position due to patient's clinical condition. Allowing for this, no evidence of stricture, mass or obstruction. No evidence of spontaneous gastroesophageal reflux or hiatal hernia.
[2017-03-04] MEDS ORDERED: Barium Sulfate for Susp 98% w/w 340g Bottle ONE (13:28)
--- NOTE | 2017-03-04 16:44 | CON ---
DATE: 03/04/2017 HISTORY OF PRESENT ILLNESS: The patient is a 66-year-old woman who presents with melanotic stools af ter recent colon surgery at [facility]. During her hospitalization here she was found to have recurrent episodes of nonsustained SVT. PAST MEDICAL HISTORY: Also notable for hypertension. She is on lisinopril at home as well as nifedi pine. In addition, the patient suffers from COPD from years of smoking. No previous cardiac history was noted. She denies chest pain, denies shortness of breath and no prev ious myocardial infarction. SOCIAL HISTORY: Notable for an active smoker until her recent surgery. REVIEW OF SYSTEMS: A 14-point review of systems was reviewed in detail. No other cardiac symptomato logy is noted. PHYSICAL EXAMINATION: VITAL SIGNS: Blood pressure varies from 160-190 systolic. The heart rate is in the 80s with an epis ode of SVT in the 140s. NECK: Negative JVD. LUNGS: Decreased breath sounds bilaterally. HEART: Revealed S1, S2. EXTREMITIES: Without edema. EKG shows episodes of SVT on telemetry monitoring LABORATORIES: Hemoglobin is 9.0. Chemistries: Potassium is 3.1. Troponin on admission was 0.15, w hich is now down to 0.02. IMPRESSION: 1. Lower gastrointestinal bleed. 2. Status post colon surgery at [facility]. 3. Chronic obstructive pulmonary disease. 4. Non-ST elevation myocardial infarction. 5. Anemia. 6. Chronic obstructive pulmonary disease. Given these findings, we will increase her Lopressor to 50 b.i.d. In addition, lisinopril has been ordered for blood pressure control. Will obtain an echocardiogram to evaluate her LV function. Willie House MD cc: [id number] TT: 03/04/2017 16:44:21 Confirmation # [id number] Dictation # [id number] mn
--- NOTE | 2017-03-04 22:53 | CARD ---
APPROVED REPORT EXAM: Two-dimensional and M-mode echocardiogram with Doppler and color Doppler. INDICATION Infection:Rule out subacute bacterial endocarditis 2D DIMENSIONS Left Atrium (2D)3.5 (1.6-4.0cm)IVSd1.5 (0.7-1.1cm) LVDd3.8 (3.9-5.9cm)PWd1.5 (0.7-1.1cm) LVDs2.4 (2.5-4.0cm)FS (%) 37.4 % LVEF (%)68.3 (>50%) M-Mode DIMENSIONS Aortic Root2.60 (2.2-3.7cm)Aortic Cusp Exc.1.50 (1.5-2.0cm) Aortic Valve AoV Peak Xetbmkbd619.0cm/Terence Peak GR.12mmHg Mitral Valve E/A ratio0.0 TDI E/Lateral E'0.0E/Medial E'0.0 Tricuspid Valve TR Peak [id number]/sRAP [id number] Peak Gr.37mmHg [id number] LEFT VENTRICLE The left ventricle is normal size. There is moderate concentric left ventricular hypertrophy. The left ventricular function is normal. The left ventricular ejection fraction is within the normal range. There is normal LV segmental wall motion. Transmitral Doppler flow pattern is Grade I-abnormal relaxation pattern. RIGHT VENTRICLE The right ventricle is normal size. There is normal right ventricular wall thickness. The right ventricular systolic function is normal. ATRIA The left atrium size is normal. The right atrium size is normal. AORTIC VALVE The aortic valve is normal in structure. No aortic regurgitation is present. There is no aortic valvular vegetation. MITRAL VALVE The mitral valve is mildly thickened. Mitral regurgitation is mild. TRICUSPID VALVE There is moderate tricuspid regurgitation. There is mild to moderate pulmonary hypertension. GREAT VESSELS The aortic root is normal in size. PERICARDIAL EFFUSION There is a trace circumferential pericardial effusion. <Conclusion> The left ventricle is normal size. There is moderate concentric left ventricular hypertrophy. The left ventricular function is normal. The left ventricular ejection fraction is within the normal range. There is normal LV segmental wall motion. Transmitral Doppler flow pattern is Grade I-abnormal relaxation pattern. There is moderate tricuspid regurgitation. There is mild to moderate pulmonary hypertension. No vegitation seen
[2017-03-05] MEDS: Dextrose 5%/0.9% NS 1,000 ML IV SCH ×3 (00:19→15:57)
[2017-03-05 07:17] LABS: HEMATOCRIT 26.9 % (36.0-48.0); MEAN CELL VOLUME 88.5 fL (80.0-105.0); MEAN CORPUSCULAR HEMOGLOBIN 28.9 pg (25.0-35.0); MEAN CORPUSCULAR HGB CONC 32.7 g/dl (31.0-37.0); MEAN PLATELET VOLUME 8.7 fl (7.0-11.0); RED CELL DISTRIBUTION WIDTH 19.1 % (11.5-14.5); WHITE BLOOD COUNT 7.1 10^3/ul (4.5-11.0)
[2017-03-05 07:19] LABS: ALB/GLOB RATIO 0.7 (1.1-1.8); ALKALINE PHOSPHATASE 308 U/L (38-133); ALT/SGPT 55 U/L (7-56); AST/SGOT 67 U/L (15-39); BILIRUBIN,TOTAL 0.6 mg/dL (0.2-1.3); BLOOD UREA NITROGEN 3 mg/dL (7-21); CARBON DIOXIDE 24 mmol/L (21-33); CHLORIDE 106 mmol/L (98-107); GFR AFRICAN-AMERICAN > 60; GLUCOSE,RANDOM 110 mg/dL (70-110); SODIUM 138 mmol/L (132-148); TOTAL PROTEIN 5.6 g/dL (5.8-8.3)
[2017-03-05 07:32] LABS: POTASSIUM 2.8 mmol/L (3.6-5.0)
[2017-03-05 07:33] LABS: CALCIUM 4.7 mg/dL (8.4-10.5)
[2017-03-05] MEDS ORDERED: Etomidate 20 mg/10ml Inj IV ONE ×2 (08:40→13:41)
--- NOTE | 2017-03-05 08:43 | PN ---
DATE: 03/04/2017 ADDENDUM This patient was seen and evaluated earlier. This is an addendum to the GI progress report dictated by Vanessa Garcia APN. I have discussed her case with Dr. Vega, infectious disease specialist, and also Dr. Odonnell. The patient's hemoglobin has been stable, 9 grams. No obvious bleeding present. The patient did complai n of difficulty in swallowing before. The patient originally scheduled for an upper GI endoscopy wh ch has been on hold as the patient has VRE bacteremia and started on new antibiotic regimen by ID and recommended to wait for 24-48 hours before considering endoscopic evaluation, unless it is an emerge ncy. I requested a barium swallow. There is no evidence of mass or stricture noticed. Would recomm end encouraging the patient to take p.o. liquids and liquid diet, would encourage her to take p.o. T he patient had a drain which came out and would need ____. This 66-year-old patient has a history of dark stool, no further episodes of bleeding, status post co neo and liver resection and had a hepatic drain and is status post the drain came out. Now has VRE b acteremia. Continue the antibiotics as per ID. Surgical followup. We reviewed the surgical note, farida crockett to have the patient followed up at [facility] for further surgical issue. The patient did have an episode of ASVD earlier. Thank you very much for allowing us to participate in the care of the patient. Jace Fernandez MD cc: [id number] TT: 03/04/2017 20:14:43 Confirmation # [id number] Dictation # [id number] halley
[2017-03-05] MEDS ORDERED: Enoxaparin 60 mg Syringe SC STA (08:49)
[2017-03-05] MEDS ORDERED: Succinylcholine 200 mg/10 ml Inj IV ONE ×2 (08:53→08:54)
[2017-03-05] MEDS ORDERED: Rocuronium 10 mg/ml (5 ml) IVP ONE (08:54)
[2017-03-05] MEDS ORDERED: Rocuronium 10 mg/ml (5 ml) ONE ×2 (08:55→08:59)
[2017-03-05] MEDS ORDERED: Midazolam 100 mg/100ml in NS 100 MG/100 ML SOL IV PRN ×2 (09:04→10:29)
--- NOTE | 2017-03-05 09:04 | CP.PCM.PN ---
Subjective - Date & Time of Evaluation Date of Evaluation: 03/05/17 Time of Evaluation: 07:10 - Subjective Subjective: General Surgery Progress Note for Dr. Odonnell Patient seen and examined at bedside. No acute events overnight. Patient reports her appetite has been improving. Denies having abdominal pain and rectal bleeding. Patient further denies having headache, fever, chills, shortness of breath, chest pain, nausea or vomiting. Objective - Vital Signs/Intake and Output Vital Signs (last 24 hours): Temp Pulse Resp BP Pulse Ox 99.2 F 170 H 30 H 165/77 H 100 03/05/17 08:00 03/05/17 08:21 03/05/17 08:00 03/05/17 08:21 03/05/17 08:00 Intake and Output: 03/05/17 03/05/17 06:59 18:59 Intake Total 1350 Output Total 1200 Balance 150 - Medications Medications: Current Medications Acetaminophen (Tylenol 325mg Tab) 650 mg PO Q4 PRN PRN Reason: Fever >100.4 F Heparin Sodium (Porcine) (Heparin) 5,000 units SC Q8 JEAN CARLOS PRN Reason: Protocol Last Admin: 03/05/17 05:05 Dose: 5,000 units Meropenem 1g/NS 100mL IVPB (Meropenem 1g/Ns 100ml Ivpb) 1 gm in 100 mls @ 100 mls/hr IVPB Q12 JEAN CARLOS PRN Reason: Protocol Stop: 03/08/17 22:01 Last Admin: 03/04/17 21:33 Dose: 100 mls/hr Dextrose/Sodium Chloride (Dextrose 5%/0.9% Ns 1000 Ml) 1,000 mls @ 100 mls/hr IV .Q10H JEAN CARLOS Last Admin: 03/05/17 00:19 Dose: 100 mls/hr Daptomycin 410 mg/ Sodium (Chloride) 100 mls @ 200 mls/hr IV Q24H JEAN CARLOS Stop: 03/18/17 10:01 Last Admin: 03/04/17 13:13 Dose: 200 mls/hr Acetaminophen (Ofirmev) 1,000 mg in 100 mls @ 400 mls/hr IVPB Q6H PRN PRN Reason: temp Stop: 03/07/17 08:45 Levothyroxine Sodium (Synthroid) 67.5 mcg IVP DAILY JEAN CARLOS Last Admin: 03/02/17 10:12 Dose: 67.5 mcg Levothyroxine Sodium (Synthroid) 112 mcg PO DAILY [facility] Last Admin: 03/04/17 09:07 Dose: 112 mcg Lisinopril (Zestril) 10 mg PO DAILY [facility] Last Admin: 03/04/17 09:07 Dose: 10 mg Metoprolol Tartrate (Lopressor) 50 mg PO BID [facility] Last Admin: 03/05/17 08:21 Dose: 50 mg Pantoprazole Sodium (Protonix Inj) 40 mg IVP Q12 [facility] Last Admin: 03/04/17 21:34 Dose: 40 mg - Labs Labs: 03/05/17 06:30 03/05/17 06:30 PT 12.6 Seconds (9.9-11.8) H 03/04/17 05:45 INR 1.17 (0.93-1.08) H 03/04/17 05:45 APTT 41.1 Seconds (23.7-30.8) H 03/04/17 05:45 - Constitutional Appears: Non-toxic, No Acute Distress - Head Exam Head Exam: ATRAUMATIC - Eye Exam Eye Exam: EOMI, Normal appearance - ENT Exam ENT Exam: Mucous Membranes Moist - Respiratory Exam Respiratory Exam: absent: Respiratory Distress - Cardiovascular Exam Cardiovascular Exam: +S1, +S2 Additional comments: Right chest port present. No erythema, tenderness or edema appreciated. - GI/Abdominal Exam GI & Abdominal Exam: Soft. absent: Tenderness Additional comments: Right abdominal wound dressing clean, dry, no signs of infection appreciated - Extremities Exam Extremities Exam: Normal Capillary Refill - Neurological Exam Neurological Exam: Alert, Awake, Oriented x3 - Skin Skin Exam: Dry, Warm Assessment and Plan - Assessment and Plan (Free Text) Assessment: 66 year old female with melanotic stool s/p recent colon/liver resection at [facility] with hepatic drain. s/p chemo s/p port placement. Patient was found to have bacteremia Plan: -Pt Will to f/u at [facility] surgeon for port removal and further surgical issues -Pt declined NGT or dobhoff -H/H stable at this time -GI workup -Medical management per ICU/Primary team -D/w attending Dr. Odonnell
[2017-03-05] MEDS ORDERED: Midazolam 5 MG/5 ML VIAL ONE (09:05)
[2017-03-05] MEDS ORDERED: Potassium Chloride 40 mEq/30 ml LIQ UD PO ONE (09:08)
[2017-03-05] MEDS ORDERED: Fentanyl 1000mcg/100ml NS 1,000 MCG/100 ML BAG IV PRN (09:12)
[2017-03-05] MEDS ORDERED: Enoxaparin 60 mg Syringe SC SCH (10:00)
[2017-03-05 10:02] LABS: ABG MECHANICAL RATE 18; ARTERIAL BLOOD GAS HCO3 19.9 mmol/L (21-28); ARTERIAL BLOOD GAS PH 7.46 (7.35-7.45); ATERIAL BLOOD GAS PEEP 5
[2017-03-05] MEDS: Meropenem 1g/NS 100mL IVPB 1 GM/100 ML PIGGYBACK IVPB SCH ×2 (10:14→22:11)
[2017-03-05] MEDS: Levothyroxine 112 MCG TAB PO SCH (10:15)
--- NOTE | 2017-03-05 10:18 | PN ---
DATE: 03/05/2017 She is in the intensive care unit. MEDICATIONS: She is on daptomycin, dextrose, heparin, Lopressor, Merrem IV, Protonix, Synthroid, Tyl enol, and Zestril. She is eating some, comfortable in bed. PHYSICAL EXAMINATION: VITAL SIGNS: She has a 99.2 temp, 96 pulse, 162/77 blood pressure, 30 respiratory rate, 100% O2 sat on oxygen. HEAD: Atraumatic, normocephalic. HEART: Regular rate. LUNGS: Decreased breath sounds but, clear. ABDOMEN: Soft. EXTREMITIES: No edema, and she is quite weak. She is now telling me she is refusing to go back to subacute rehab, and she just wanted to go home. I do not know if she has care at home. I will call case management and psychiatric social worker to help me with that. LABORATORY DATA: She has a 7.1 white count, 8.8 hemoglobin, 26.9 hematocrit with 270 platelets. She has a 138 sodium. Potassium is 2.8. I will replace the potassium. BUN is 3, creatinine 0.7. GFR is greater than 60. Sugar is 110. Calcium is 4.7. She needs to get that replaced too. Total bili is 0.6. AST is 67. ALT is 55. Alkaline phosphatase is 308. Total protein is 5.6. She is being seen by GI, cardiology, infectious disease, surgery, pulmonary, the scallop cutter machine. She soler s got multiple issues, and she is in trouble. She had a recent colon surgery. She is septic, GI ble ed. She has a positive troponin. She had colitis, rapid AFib, and she is now getting weaker. We wi ll try and pull her out of this. I do not know if we can. I discussed hospice with her. She did no t want to hear it, and she does not want to go back to subacute rehab. We will continue aggressive t reatment and care, and do that in the CCU. Wily Barton DO cc: [id number] TT: 03/05/2017 10:17:39 Confirmation # [id number] Dictation # [id number] jn
--- NOTE | 2017-03-05 10:32 | CP.PCM.PN ---
Subjective - Date & Time of Evaluation Date of Evaluation: 03/05/17 Time of Evaluation: 09:10 - Subjective Subjective: Noted patient to be intubated now and on the ventilator after the patient went into tachyarrhythmia and respiratory distress. Had low grade fevers overnight. Objective - Vital Signs/Intake and Output Vital Signs (last 24 hours): Temp Pulse Resp BP Pulse Ox 99.2 F 96 H 30 H 162/77 H 100 03/05/17 08:00 03/05/17 08:00 03/05/17 08:00 03/05/17 08:00 03/05/17 08:00 Intake and Output: 03/05/17 03/05/17 06:59 18:59 Intake Total 1350 Output Total 1200 Balance 150 - Medications Medications: Current Medications Acetaminophen (Tylenol 325mg Tab) 650 mg PO Q4 PRN PRN Reason: Fever >100.4 F Heparin Sodium (Porcine) (Heparin) 5,000 units SC Q8 JEAN CARLOS PRN Reason: Protocol Last Admin: 03/05/17 05:05 Dose: 5,000 units Meropenem 1g/NS 100mL IVPB (Meropenem 1g/Ns 100ml Ivpb) 1 gm in 100 mls @ 100 mls/hr IVPB Q12 JEAN CARLOS PRN Reason: Protocol Stop: 03/08/17 22:01 Last Admin: 03/04/17 21:33 Dose: 100 mls/hr Dextrose/Sodium Chloride (Dextrose 5%/0.9% Ns 1000 Ml) 1,000 mls @ 100 mls/hr IV .Q10H [facility] Last Admin: 03/05/17 00:19 Dose: 100 mls/hr Daptomycin 410 mg/ Sodium (Chloride) 100 mls @ 200 mls/hr IV Q24H [facility] Stop: 03/18/17 10:01 Last Admin: 03/04/17 13:13 Dose: 200 mls/hr Levothyroxine Sodium (Synthroid) 67.[address] [facility] Last Admin: 03/02/17 10:12 Dose: 67.5 mcg Levothyroxine Sodium (Synthroid) [address] [facility] Last Admin: 03/04/17 09:07 Dose: 112 mcg Lisinopril (Zestril) [address] [facility] Last Admin: 03/04/17 09:07 Dose: 10 mg Metoprolol Tartrate (Lopressor) [address] [facility] Last Admin: 03/04/17 18:34 Dose: 50 mg Pantoprazole Sodium (Protonix Inj) [address] [facility] Last Admin: 03/04/17 21:34 Dose: 40 mg - Labs Labs: 03/05/17 06:30 03/05/17 06:30 PT 12.6 Seconds (9.9-11.8) H 03/04/17 05:45 INR 1.17 (0.93-1.08) H 03/04/17 05:45 APTT 41.1 Seconds (23.7-30.8) H 03/04/17 05:45 - Constitutional Appears: Other (Intubated and sedated) - Head Exam Head Exam: NORMAL INSPECTION - Neck Exam Neck Exam: absent: Meningismus - Respiratory Exam Respiratory Exam: Decreased Breath Sounds Additional comments: right anterior chest wall port site intact - Cardiovascular Exam Cardiovascular Exam: +S1, +S2 - GI/Abdominal Exam GI & Abdominal Exam: Soft. absent: Tenderness Assessment and Plan - Assessment and Plan (Free Text) Plan: Assessment severe Sepsis with ventilator-dependent respiratory failure due to Vancomycin- resistant Enterococcus faecium bacteremia, need to rule out port infection; patient also with enteritis /colitis as well as tachyarrhythmia which eventually led to the intubation stage 4 colon cancer, S/P colon resection at [facility] Feb 08 2017 probable recurrent pleural effusions S/P pleurex catheter placement indwelling Castro catheter history of diverticulitis chronic renal failure Plan continue Merrem day 5 and Daptomycin IV day 2; repeat blood cx are negative; follow up 2D echo; reviewed CT abdomen and pelvis and discussed with Dr. Whelan - right lower lobe is probably more atelectasis We have discussed previously several days ago and everyday with the ICU team that the we recommend removal of the port will continue to monitor clinically Overall prognosis is poor
[2017-03-05] MEDS ORDERED: Dexmedetomidine HCl 4mcg/ml 400 MCG/100 ML BOTTLE IV PRN (10:34)
--- NOTE | 2017-03-05 10:48 | RAD ---
HISTORY: trach and NG tube placement COMPARISON: 03/02/2017 FINDINGS: LUNGS: No pulmonary infiltrate. PLEURA: Probable small bilateral pleural effusion. No pneumothorax. CARDIOVASCULAR: Normal heart size. Evaluation limited due to oblique positioning. Right central venous infusion port. New nasogastric tube extends to left upper quadrant of abdomen. New endotracheal tube with tip approximately 10 mm above the tracheal myla. There are surgical clips seen bilaterally in the neck. There are surgical clips also noted in the upper abdomen. OSSEOUS STRUCTURES: No significant abnormalities. VISUALIZED UPPER ABDOMEN: Normal. OTHER FINDINGS: None. IMPRESSION: Small bilateral pleural effusion. New endotracheal tube tip terminates 10 mm above tracheal myla. Consider repositioning more proximally. New nasogastric tube extends to left upper quadrant of abdomen. No pulmonary infiltrate.
--- NOTE | 2017-03-05 10:58 | PN ---
DATE: 03/05/2017 PULMONARY NOTE SUBJECTIVE: The patient appears comfortable at rest. She is not short of breath. PHYSICAL EXAMINATION: VITAL SIGNS: Temperature is 100.2. Pulse on the monitor is 88, respiratory rate 20, blood pressure 157/76. Oxygen saturation on nasal cannula is 95%. HEENT: Normocephalic, atraumatic. No JVD. CARDIOVASCULAR: Positive S1, S2. No S3. LUNGS: Slightly better breath sounds at the bases. No rhonchi. No wheezing. EXTREMITIES: Mild edema. No cyanosis, no clubbing. Calves are nontender to palpation. GASTROINTESTINAL: Abdomen is soft. It is mildly distended, but nontender to palpation. Bowel sounds are positive. SKIN: No acute rash. NEUROLOGIC: Limited at the present time. IMPRESSION: 1. Sepsis syndrome. 2. Gastrointestinal bleeding. 3. Advanced, stage IV colon cancer. 4. Status post recent extensive surgery at [facility] and [facility]. 5. Minimal atelectasis - right base. 6. Small bilateral pleural effusions. 7. Anemia. 8. Renal insufficiency. PLAN: The patient appears comfortable this morning. She is not short of breath at rest. She does state to feeling better overall, and is anxious to get home in the near future. I did discuss the case with the night nurse at length. The night nurse stated that the patient had a pretty good night. On physical exam, there is no significant bronchospasm noted. In addition, there is no significant alveolar arterial gradient. I would continue with the frequent incentive spirometry usage for now. I would also like to see the patient out of bed as much as possible. I would continue with the antibiotic coverage - as per infectious disease. The leukocytosis has completely resolved. I would continue with the GI and surgical evaluations. Inputs are noted. Clinical status of the patient is significantly improved - compared to the initial presentation. However, again, the overall status/prognosis for this patient remains poor/very guarded at best. I will discuss the above with the entire ICU team in the next few moments. I will also discuss the above with the attending physician. Ciaran Whelan MD cc: [phone] TT: 03/05/2017 10:58:36 Confirmation # [id number] Dictation # [id number] jn MTDD
[2017-03-05] MEDS ORDERED: Lidocaine 1% Inj (20ml) ONE (11:12)
[2017-03-05] MEDS ORDERED: Bupivacaine 0.5% Inj(30mL) ONE (11:12)
[2017-03-05] MEDS ORDERED: Linezolid 600 mg in D5W 300 ml 600 MG/300 ML BAG IVPB SCH (11:15)
[2017-03-05] MEDS ORDERED: Sodium Chloride 0.9% 500 ML IV STA ×2 (11:50→12:41)
--- NOTE | 2017-03-05 12:25 | PN ---
DATE: 03/05/2017 The patient seen and examined at bedside. She was in severe respiratory distress, breathing 49 times per minute. Her heart rate 210. She is febrile, up to 101.2, she is shivering and shaking. Initially blood pressure was stable , however, later came down. Preparation for emergent cardioversion was made with initial intubation for airway stabilization. Meanwhile, patient was given a liter of normal saline wide open, sedated and intubated, blood glucose was within normal limits and Ofirmev was given to control fever. Once all that was done, heart rate went down to 140. Adenosine 6 mg given, which slowed down HR with discernable P-waves. Cardiology consult requested (Dr. House). Blood pressure normalized and patient even became a little bit hypertensive. Dr. Odonnell was contacted and old Port-A-Cath was asked to be removed with which Dr. Odonnell agreed. PMD notified and private pulmonary service was also notified about the event. Current physical exam showed a heart rate of 120, respiratory rate 18. The patient is on mechanical ventilation with FIO2 of 40%, 400/5/18. PHYSICAL EXAMINATION: VITAL SIGNS: Current physical exam showed a heart rate of 120, respiratory rate 18. The patient is on mechanical ventilation with FIO2 of 40%, 400/5/18. HEAD AND NECK: Atraumatic. LUNGS: Clear to auscultation bilaterally. HEART: Regular rate and rhythm. S1, S2 normal. ABDOMEN: Soft, nontender, nondistended. MUSCULOSKELETAL: No C/C/E. NEUROLOGIC: The patient was moving all extremities. Continues to require intubation. SKIN: Moist. PSYCHIATRIC: The patient was alert and oriented x 3. She reported desire to be intubated prior to endotracheal intubation. LABORATORY DATA: WBC 7.1, hemoglobin 8.8, platelet count 217. Sodium 138, potassium 2.8 (supplemented), chloride 106, carbon dioxide 24, BUN 3, creatinine 0.7, calcium 4.7; however, albumin 2.3. AST 67, ALT 55. INR 1.17, PTT 41.1. Blood gas after intubation 7.46/28/82 on 40% FIO2 (respiratory rate was decreased). MEDICATIONS: The patient is on Ofirmev every 6 p.r.n., calcium gluconate given , daptomycin, D5 normal saline 100 mL per hour, Synthroid 112 mcg p.o. daily, lisinopril, meropenem, metoprolol, potassium supplementation, Versed drip. ASSESSMENT AND PLAN: This is a 66-year-old lady with vancomycin-resistant enterococcal bacteremia in the setting of old Port-A-Cath and new RLL pneumonia. At present time, provided the patient is tachycardic, in respiratory failure and febrile, concern for ongoing bacteremia despite negative blood culture from old Port-A-Cath present. The patient is on daptomycin and meropenem. I would proceed with removal of the old Port-A-Cath and add Linezolid as Dapto has poor penetration to the lung tissues. I will continue with infectious disease service followup. I would repeat procalcitonin. Electrolytes will be supplemented aggressively. Cardiology followup is pending. Echocardiogram was performed yesterday and revealed normal left ventricular systolic function, mild to moderate pulmonary hypertension, but no vegetation. RSVP 47. I would continue with deep venous thrombosis and gastrointestinal prophylaxis. I would continue to maintain euvolemia, euglycemia, normothermia and oxygen saturation more than 90%. Lactic acid level is within normal limits. We will continue with protective lung ventilation strategy with daily weaning trials and sedation vacation. VR needs to be controlled and cardiac function optimized. Sepsis and dehydration may have a major role in patient current decompensation. Presence of moderate pulmonary hypertension may impede attempts at liberation from mechanical ventilation. I would not employ dobutamine or milrinone in the setting of life- threatening episode of atrial fibrillation and rapid ventricular rate. Nevertheless, emphasis on maintaining euvolemia will be made. Cardiology service input will be utilized as well. We will continue with head of bed elevated at more than 35 degrees. We will continue with enteral nutrition, gastrointestinal prophylaxis. We will maintain blood glucose within 140-180 range according to NICE-SUGAR trial. We will continue with deep venous thrombosis and gastrointestinal prophylaxis. Addendum: POC Bedside US revealed small/moderate right pleural effusion (not deemed safely tapable at bedside) and air bronchograms, IVC<1 cm, completely collapsible on inspiration despite PPV-->Patient is fluid resuscitated (3L given )-->, BP stabilzied, HR improved to 120, sinus tach, abx adjusted, post-a cath removed, new CVL placed by surgery. Precedex started. ccm time 40 min Fadi Ward MD cc: [id number] TT: 03/05/2017 12:24:28 Confirmation # [id number] Dictation # [id number] rn MTDD
[2017-03-05] MEDS ORDERED: Sodium Chloride 0.9% 1,000 ML IV STA ×3 (12:40→17:30)
[2017-03-05 13:33] LABS: HEMATOCRIT 26.9 % (36.0-48.0); MEAN CELL VOLUME 90.3 fL (80.0-105.0); MEAN CORPUSCULAR HEMOGLOBIN 29.2 pg (25.0-35.0); MEAN CORPUSCULAR HGB CONC 32.3 g/dl (31.0-37.0); MEAN PLATELET VOLUME 8.2 fl (7.0-11.0); PLATELET COUNT 199 10^3/uL (120.0-450.0); RED CELL DISTRIBUTION WIDTH 19.4 % (11.5-14.5); WHITE BLOOD COUNT 11.8 10^3/ul (4.5-11.0)
[2017-03-05 13:34] LABS: ADD MANUAL DIFF? YES
[2017-03-05] MEDS ORDERED: ePHEDrine 50 mg/ml Inj ONE (13:38)
[2017-03-05] MEDS ORDERED: Midazolam 2 MG/2 ML VIAL ONE ×2 (13:38→14:46)
[2017-03-05 13:43] LABS: BLOOD UREA NITROGEN 3 mg/dL (7-21); CARBON DIOXIDE 19 mmol/L (21-33); CHLORIDE 113 mmol/L (98-107); GFR AFRICAN-AMERICAN > 60; GLUCOSE,RANDOM 109 mg/dL (70-110); POTASSIUM 3.8 mmol/L (3.6-5.0); SODIUM 140 mmol/L (132-148)
[2017-03-05 13:47] LABS: BAND 1 % (0-2); NEUTROPHIL 88 % (50.0-70.0)
[2017-03-05 13:53] LABS: CALCIUM 4.4 mg/dL (8.4-10.5)
[2017-03-05 14:15] LABS: TROPONIN I 0.56 ng/mL
--- NOTE | 2017-03-05 14:32 | PN ---
DATE: 03/05/2017 Earlier this morning, the patient was doing well after having been admitted with sepsis secondary to VRE bacteremia and anemia due to fat anemia and a year to gastrointestinal bleeding as well as for jann sparks. At 9:30 this morning, she started shivering, developing an extremely rapid heartbeat, and wa s noted to have atrial fibrillation with a fast of over 220. She had been treated with o n during the night and was retreated again now, and pulse has dropped down and the patient's temperat ure is elevated at 102. In the next several hours, she has started to drop her blood pressure to 88 and has required 3 liters of fluid to maintain her pressure above 100. Discussion was held at this p oint with the family, explaining that she has an infection in her blood, and we should remove the por t that has been indwelling since earlier this year replace it with a triple lumen central venous cath eter. Risks, benefits, and alternatives with their anticipated outcomes were discussed with the jed ent's family, and they signed the informed consent. At this point, the patient remains intubated and has a blood pressure below 100 and has received 2K riders of 20 mEq potassium to raise her potassium from 2.8. Stat blood work has been ordered for CBC, chem basic, and troponin, and the patient will go to the op erating room very soon. This dictation will be electronically signed without being read. Naren Odonnell MD cc: [id number] TT: 03/05/2017 14:31:34 Confirmation # [id number] Dictation # [id number] bn
--- NOTE | 2017-03-05 14:48 | PN ---
DATE: 03/05/2017 SUBJECTIVE: The above events are noted. The patient is now sedated and intubated. PHYSICAL EXAMINATION: VITAL SIGNS: Blood pressure is 90/58, heart rate is 100, temperature of 101. NECK: Negative JVD. LUNGS: Decreased breath sounds. HEART: Reveals S1, S2. EXTREMITIES: Without edema. LABORATORIES: Hemoglobin is 8.8. Chemistries: Potassium is 2.8, BUN and creatinine are unremarkabl e. The calcium is dramatically low with an albumin that is 2.3. IMPRESSION: 1. Respiratory failure. 2. Non-ST elevation myocardial infarction. 3. Sepsis. 4. Status post abdominal surgery and UMDNJ. 5. Marked anemia. Given these findings, echocardiogram reveals good LV function. Her heart rate is much stabilized wit h a respiratory status stabilized. The treatment needs to be directed at correcting her metabolic ab normalities and controlling of her sepsis. Willie House MD cc: [id number] TT: 03/05/2017 14:48:15 Confirmation # [id number] Dictation # [id number] bn
[2017-03-05] MEDS ORDERED: Metoprolol 1 mg/ml Inj IVP ONE (15:10)
[2017-03-05] MEDS ORDERED: Midazolam 2 MG/2 ML VIAL IVP STA (15:21)
--- NOTE | 2017-03-05 15:23 | PCM.SURG1 ---
Surgeon's Initial Post Op Note - Surgeon's Notes Surgeon: Dr. Odonnell Bag Cutter: Dr. Munoz, Dr. Ordonez Type of Anesthesia: General Endo, Local Pre-Operative Diagnosis: sepsis, possible port infection Operative Findings: see op report Post-Operative Diagnosis: same Operation Performed: insertion of left subclavian triple lumen catheter, removal of right IJ portacath Specimen/Specimens Removed: port, fluid culture tip, blood cultures from new central line Estimated Blood Loss: EBL {In ML}: 10 Blood Products Given: N/A Drains Used: No Drains Post-Op Condition: Good Date of Surgery/Procedure: 03/05/17 Time of Surgery/Procedure: 02:00
--- NOTE | 2017-03-05 16:15 | RAD ---
HISTORY: s/p central line placement COMPARISON: No prior. FINDINGS: LUNGS: Previously noted right-sided MediPort no longer visible. Interval placement left subclavian central venous line with tip in the SVC. The In situ ETT, tip of which lies approximately 3.4 cm above myla. Feeding tube again seen the at the tip of which has not been included on this film though distal most aspect of the feeding tube lies left mid abdomen. Bilateral effusions and suspected bibasilar atelectasis right greater than left. PLEURA: As above. No apparent pneumothorax. CARDIOVASCULAR: Normal. OSSEOUS STRUCTURES: No significant abnormalities. VISUALIZED UPPER ABDOMEN: Metallic clips right upper quadrant of the abdomen consistent prior cholecystectomy. OTHER FINDINGS: None. IMPRESSION: Previously noted right-sided MediPort no longer visible. Interval placement left subclavian central venous line with tip in the SVC. The In situ ETT, tip of which lies approximately 3.4 cm above myla. Feeding tube again seen the at the tip of which has not been included on this film though distal most aspect of the feeding tube lies left mid abdomen. Bilateral effusions and suspected bibasilar atelectasis right greater than left.
[2017-03-05] MEDS ORDERED: NOREPINEPHRINE BIT/0.9 % NACL 4 MG/250 ML BAG IV ONE (17:09)
--- NOTE | 2017-03-05 17:30 | CARD ---
APPROVED REPORT EKG Measurement Heart [id number] MS 112P [id number] <Conclusion> SVT T wave abnormality, consider inferior ischemia Abnormal ECG
--- NOTE | 2017-03-05 17:41 | PN ---
DATE: 03/05/2017 Seen and examined at the bedside earlier today. The patient was in SVT and also noted to be acidotic . The patient was intubated. The patient is reported to have had liquid bowel movements, but no rep orts of any melena or bright red blood. The patient went for an esophagogram yesterday and it was a limited exam, but it did not show any evidence of gastroesophageal reflux. No evidence of stricture, mass or obstruction. The patient was reported to be tolerating her diet, but now the patient is int ubated and is n.p.o. VITAL SIGNS: Temperature this morning was 101.2, blood pressure this morning was 159/87, pulse was 1 13, O2 saturation was 98%. LABORATORY DATA: WBC this morning labs was 7.1, H and H is 8.8 and 26.9, platelet is 270. Sodium is 138, K is 2.8, chloride is 106, BUN , creatinine is 0.7, calcium is 4.7, total bilirubin is 0.6 , AST 67, ALT 55, alkaline phosphatase is 308. The, patient received calcium gluconate, as well as p otassium replacements. Chest x-ray was done this morning and that reported small bilateral pleural e ffusions, shows ET tube as well as nasogastric tube in the left upper quadrant of the abdomen, no pul monary infiltrate. PHYSICAL EXAMINATION: HEENT: Sclerae anicteric. NECK: Supple. CARDIAC: S1, S2. LUNGS: Decreased breath sounds but clear. The patient is intubated now. ABDOMEN: With bowel sounds, soft, not tender. Her surgical incision is dry and intact. She has a f ew jitendra that are in place and it looks clean. ASSESSMENT: This is a 66-year-old female now with VRE. The patient has in old Port-A-Cath. The pat ient has history of colon cancer, status post hepatic wedge resection and colon resection and cholecy stectomy, came with complaints of melena and weakness. The patient was septic and like I said is now positive for VRE, likely secondary to her Port-A-Cath. The patient went into SVT and was acidotic, and so the patient was intubated. Yesterday, we did an esophagogram. The patient complained of diff iculty with swallowing felt like food was getting stuck. The Esophagogram was negative for any stric tures, hiatal hernia or reflux disease. The patient also with anemia, status post blood transfusion, history of atrial fibrillation with rapid ventricular response. PLAN: Continue to monitor her H and H. She is on Protonix 40 q. 12. The patient is also on IV antib iotics of meropenem. She is also on daptomycin. The patient is now on Precedex IV fluids for hydrat ion and now n.p.o. and plan for removal of Port-A-Cath. The patient is noted to be hypokalemic and h ypocalcemia. She has received replacements for this. The patient was seen and case discussed with Dr. Fernandez who spoke to the daughter at the bedside. Vanesas ROTHMAN cc: [id number] TT: 03/05/2017 17:40:29 Confirmation # [id number] Dictation # [id number] mn
[2017-03-05] MEDS: NOREPINEPHRINE BIT/0.9 % NACL 4 MG/250 ML BAG IV PRN (18:00)
[2017-03-05] MEDS ORDERED: Vasopressin 20 UNITS in Dextrose 5% In Water 100 ML IV SCH (19:00)
[2017-03-05 20:49] LABS: TROPONIN I 0.53 ng/mL
--- NOTE | 2017-03-05 21:14 | PN ---
DATE: 03/05/2017 ADDENDUM This is an addendum to the GI progress report dictated by Vanessa Garcia APN. The patient was seen and evaluated in ICU earlier. The patient now remains on vent. . D iscussed with the nursing staff and also the patient's family at length. This patient is presently o n Levophed, , status post removal of the port. Continue the antibiotics as per ID. Close follo wup of the hemoglobin and hematocrit. Thank you very much for allowing us in taking care of the patient. Jace Fernandez MD cc: [id number] TT: 03/05/2017 21:13:51 Confirmation # [id number] Dictation # [id number] mn
[2017-03-06] MEDS: NOREPINEPHRINE BIT/0.9 % NACL 4 MG/250 ML BAG IV PRN (00:48)
[2017-03-06 02:29] LABS: TROPONIN I 0.22 ng/mL
[2017-03-06] MEDS: Dextrose 5%/0.9% NS 1,000 ML IV SCH (03:27)
[2017-03-06 06:38] LABS: ARTERIAL BLOOD GAS HCO3 14.9 mmol/L (21-28); ARTERIAL BLOOD GAS O2 CAPACITY 9.8 mL/dl (16-24); ARTERIAL BLOOD GAS O2 CONTENT 9.8 ML/dl (15-23); ARTERIAL BLOOD HGB O2 SAT 97.3 % (95.0-98.0); CARBOXYHEMOGLOBIN 1.7 % (0.5-1.5); HHB 0 % (0-5)
[2017-03-06 07:02] LABS: HEMATOCRIT 25.1 % (36.0-48.0); MEAN CELL VOLUME 90.3 fL (80.0-105.0); MEAN CORPUSCULAR HEMOGLOBIN 28.8 pg (25.0-35.0); MEAN CORPUSCULAR HGB CONC 31.9 g/dl (31.0-37.0); MEAN PLATELET VOLUME 8.9 fl (7.0-11.0)
[2017-03-06 07:03] LABS: ALB/GLOB RATIO 0.6 (1.1-1.8); ALKALINE PHOSPHATASE 245 U/L (38-133); ALT/SGPT 47 U/L (7-56); AST/SGOT 58 U/L (15-39); BILIRUBIN,TOTAL 0.4 mg/dL (0.2-1.3); BLOOD UREA NITROGEN 5 mg/dL (7-21); CARBON DIOXIDE 19 mmol/L (21-33); CHLORIDE 113 mmol/L (98-107); GFR AFRICAN-AMERICAN > 60; GLUCOSE,RANDOM 177 mg/dL (70-110); POTASSIUM 3.5 mmol/L (3.6-5.0); SODIUM 137 mmol/L (132-148); TOTAL PROTEIN 5.1 g/dL (5.8-8.3)
[2017-03-06 07:14] LABS: CALCIUM 4.3 mg/dL (8.4-10.5); TROPONIN I 0.14 ng/mL
--- NOTE | 2017-03-06 07:33 | CP.PCM.PCO ---
Physician Communication Note - Physician Communication Note Physician Communication Note: Suggest one unit PRBC this am/Procalcitonin High/ Troponin lower
--- NOTE | 2017-03-06 08:00 | CP.PCM.PN ---
Subjective - Date & Time of Evaluation Date of Evaluation: 03/06/17 Time of Evaluation: 07:30 - Subjective Subjective: General Surgery Pt S&E, NAEO. Intubated, responds to yes/no questions. Troponin trending down. ICU planning for extubation soon. Objective - Vital Signs/Intake and Output Vital Signs (last 24 hours): Temp Pulse Resp BP Pulse Ox 98.9 F 73 17 122/73 100 03/06/17 04:00 03/06/17 06:00 03/06/17 07:11 03/06/17 06:00 03/06/17 07:11 Intake and Output: 03/06/17 03/06/17 06:59 18:59 Intake Total 1821 Output Total 1400 Balance 421 - Medications Medications: Current Medications Heparin Sodium (Porcine) (Heparin) 5,000 units SC Q12 JEAN CARLOS PRN Reason: Protocol Last Admin: 03/05/17 22:11 Dose: 5,000 units Hydrocortisone Sodium Succinate (Solu-Cortef) 50 mg IVP Q8H JEAN CARLOS Meropenem 1g/NS 100mL IVPB (Meropenem 1g/Ns 100ml Ivpb) 1 gm in 100 mls @ 100 mls/hr IVPB Q12 JEAN CARLOS PRN Reason: Protocol Stop: 03/08/17 22:01 Last Admin: 03/05/17 22:11 Dose: 100 mls/hr Dextrose/Sodium Chloride (Dextrose 5%/0.9% Ns 1000 Ml) 1,000 mls @ 100 mls/hr IV .Q10H JEAN CARLOS Last Admin: 03/06/17 03:27 Dose: 100 mls/hr Daptomycin 410 mg/ Sodium (Chloride) 100 mls @ 200 mls/hr IV Q24H JEAN CARLOS Stop: 03/18/17 10:01 Last Admin: 03/05/17 11:28 Dose: 200 mls/hr Acetaminophen (Ofirmev) 1,000 mg in 100 mls @ 400 mls/hr IVPB Q6H PRN PRN Reason: temp Stop: 03/07/17 08:45 Last Admin: 03/05/17 15:27 Dose: 400 mls/hr Fentanyl Citrate (Fentanyl Citrate/Sodium Chloride 1 Mg/100 Ml) 1,000 mcg in 100 mls @ 2 mls/hr IV .Q24H PRN; Protocol; 20 MCG/HR PRN Reason: TITRATE PER MD ORDER Last Titration: 03/05/17 14:16 Dose: 0 mcg/hr, 0 mls/hr Midazolam 100 mg/100ml in NS (Midazolam 100 Mg/100ml In Ns) 100 mg in 100 mls @ 1 mls/hr IV .Q24H PRN; Protocol; 1 MG/HR PRN Reason: Sedation Dexmedetomidine HCl (Precedex 4 Mcg/Ml (100 Ml)) 400 mcg in 100 mls @ 3.447 mls /hr IV .Q24H PRN; Protocol; 0.2 MCG/KG/HR PRN Reason: Sedation Last Titration: 03/05/17 17:15 Dose: 0 mcg/kg/hr, 0 mls/hr NOREPINEPHRINE BIT/0.9 % NACL (Levophed 4 Mg/ 250 Ml Ns Premixed) 4 mg in 250 mls @ 15 mls/hr IV .[id number] PRN; Protocol; 4 MCG/MIN PRN Reason: TITRATE PER MD ORDER Last Titration: 03/06/17 02:08 Dose: 0 mcg/min, 0 mls/hr Vasopressin 20 units/ Dextrose 101 mls @ 9.09 mls/hr IV .Q11H7M JEAN CARLOS; 0.03 U/MIN PRN Reason: Protocol Last Admin: 03/05/17 19:00 Dose: 9.09 mls/hr Potassium Chloride (Potassium Chloride 20 Meq/100 Ml) 20 meq in 100 mls @ 50 mls/hr IVPB ONCE ONE Stop: 03/06/17 09:33 Calcium Gluconate 1,000 mg/ (Sodium Chloride) 110 mls @ 110 mls/hr IVPB ONCE ONE Stop: 03/06/17 08:34 Levothyroxine Sodium (Synthroid) 67.5 mcg IVP DAILY [facility] Last Admin: 03/02/17 10:12 Dose: 67.5 mcg Levothyroxine Sodium (Synthroid) 112 mcg PO DAILY JEAN CARLOS Last Admin: 03/05/17 10:15 Dose: 112 mcg Lisinopril (Zestril) 10 mg PO DAILY [facility] Last Admin: 03/05/17 10:15 Dose: 10 mg Metoprolol Tartrate (Lopressor) 50 mg PO BID [facility] Last Admin: 03/05/17 18:03 Dose: Not Given Pantoprazole Sodium (Protonix Inj) 40 mg IVP Q12 [facility] Last Admin: 03/05/17 22:11 Dose: 40 mg - Labs Labs: 03/06/17 06:30 03/06/17 06:30 PT 12.6 Seconds (9.9-11.8) H 03/04/17 05:45 INR 1.17 (0.93-1.08) H 03/04/17 05:45 APTT 41.1 Seconds (23.7-30.8) H 03/04/17 05:45 - Constitutional Appears: Non-toxic, No Acute Distress - Head Exam Head Exam: ATRAUMATIC, NORMOCEPHALIC - ENT Exam ENT Exam: Mucous Membranes Dry Additional comments: ETT in place - Respiratory Exam Respiratory Exam: NORMAL BREATHING PATTERN (on vent). absent: Chest Wall Tenderness, Respiratory Distress Additional comments: R chest dressing C/D/I, no hematoma - Cardiovascular Exam Cardiovascular Exam: RRR, +S1, +S2 - GI/Abdominal Exam GI & Abdominal Exam: Soft. absent: Distended, Firm, Guarding, Rigid, Tenderness Additional comments: no drainage from old drain locations - Neurological Exam Neurological Exam: Alert, Awake - Skin Skin Exam: Dry, Warm Assessment and Plan - Assessment and Plan (Free Text) Assessment: 66F POD#1 S/P chemoport removal and subclavian TLC placement with bacteremia and melanotic stool s/p recent colon/liver resection at [facility] with hepatic drain. Plan: -Pt to f/u with [facility] surgeon for surgical issues related to cancer resection. -H/H trending down, recommend [address] Odonnell -GI workup -Medical management per ICU/Primary team Will D/W attending Dr. Blas Munoz PGY3
--- NOTE | 2017-03-06 08:30 | PN ---
DATE: 03/06/2017(640am--730am) SUBJECTIVE: The patient is now intubated, and remains in the ICU. She is awake and alert. PHYSICAL EXAMINATION: VITAL SIGNS: Temperature is 98.9, pulse 73, respirations 17/14, blood pressure 122/73. HEENT: Normocephalic, atraumatic. No JVD. CARDIOVASCULAR: Positive S1, S2. No S3. LUNGS: Decreased breath sounds at the bases. No rhonchi. No wheezing. EXTREMITIES: Mild edema. No cyanosis, no clubbing. Calves are nontender to palpation. GASTROINTESTINAL: Abdomen is soft. It is mildly distended, but nontender to palpation. Bowel sounds are positive. SKIN: No acute rash. NEUROLOGIC: Limited at the present time. PERTINENT LABORATORY DATA: Chest x-ray was done this morning and reviewed. There is a haziness in the right lung -- probably reflective of a layering pleural effusion. There is also a small left pleural effusion. Arterial blood gas was done on assist control 14, tidal volume 400, FiO2 40%. Results are: pH 7.40, pCO2 24, pO2 of 140. IMPRESSION: 1. Respiratory failure. 2. Cardiac arrhythmias. 3. Sepsis syndrome. 4. Gastrointestinal bleeding. 5. Advanced, stage IV colon cancer. 6. Status post recent extensive surgery at [facility]. 7. Minimal atelectasis -- right base. 8. Bilateral pleural effusions. 9. Anemia 10. Renal insufficiency. PLAN: The patient is currently intubated. She appears awake and alert. I did discuss the case with the night nurse at length. Apparently, yesterday morning , the patient experienced supraventricular tachycardia. Along with the cardiac arrhythmias, her respiratory status became very labored. She was thus intubated for airway protection. I did review the chest x-ray as above. The x- ray reveals a probable layering effusion on the right side, along with a small left pleural effusion. I have also reviewed the arterial blood gas. There is a compensated metabolic acidosis noted, with a mild increase in the alveolar- arterial gradient. Input by Dr. House -- cardiology -- is also noted. In addition to the above, there is a rise in troponin. I would continue with the antibiotic coverage as per infectious disease. Temperatures are resolving. I would continue with the surgical and GI evaluations. Inputs are noted. Repeat a.m. labs are pending. The patient is critically ill at the present time. Her overall status/prognosis remains poor. I will discuss the above with the entire ICU team in the next few moments. I will also discuss the above with the attending physician. Ciaran Whelan MD cc: [phone] TT: 03/06/2017 08:29:41 Confirmation # [id number] Dictation # [id number] en MTDD
--- NOTE | 2017-03-06 08:52 | PN ---
DATE: 03/06/2017 The patient seen and examined at bedside. She is comfortable. She just got extubated. She is not in respiratory or otherwise distress. She is off of pressors. She is off of norepinephrine and vasopressin. PHYSICAL EXAMINATION: VITAL SIGNS: Blood pressure 113/60. She is on 2 liters nasal cannula and her oxygen saturation 100%. Her breathing rate is about 20. Heart rate 87. She appears to be in normal sinus rhythm. HEAD AND NECK: Atraumatic. LUNGS: Clear to auscultation bilaterally. HEART: Regular rate and rhythm. S1, S2 normal. ABDOMEN: Soft, nontender, nondistended. MUSCULOSKELETAL: No C/C/E. NEUROLOGIC: The patient moves all extremities spontaneously. SKIN: Moist. PSYCHIATRIC: The patient is alert and oriented x 3. LABORATORY DATA: Sodium 137, potassium 3.5, chloride 113, carbon dioxide 19, BUN 5, creatinine 0.7, glucose 177. WBC 17, hemoglobin 8, platelet count 216. Sodium 137, potassium 3.5 (supplemented), chloride 113, carbon dioxide 19, BUN 5 , creatinine 0.7, calcium 4.3. Troponin 0.14 (trended down from 0.56 yesterday) . Albumin 2. MEDICATIONS: Tylenol IV p.r.n., daptomycin, D5 normal saline at 100 mL per hour , heparin 5000 subQ q. 8, stress dose steroid 50 mg IV q. 8 (tapered down from q. 6), Synthroid p.o., lisinopril 10 mg p.o. daily (will be held until a few hours later when hemodynamics more ascertained), linezolid. Chest x-ray showed some increased haziness from the right side. ASSESSMENT AND PLAN: This is a 66-year-old lady with severe sepsis complicated yesterday by atrial fibrillation with rapid ventricular response and respiratory failure requiring intubation. The patient is successfully extubated today. She is off of pressors. Her stress dose steroids continue to be tapered. Linezolid was added and continued. ID service followup appreciated. And patient is on daptomycin, meropenem and linezolid at present time. Leukocytosis and increased haziness on the right side is concerning. We will give a little bit more time for zyvox to work and will follow up. As patient has a very thick left ventricular wall suggesting the presence of left ventricular diastolic dysfunction, fluid management and maintaining balance between under- and overhydration is of paramount importance. Nevertheless, the patient requires only minimal FIO2 supplementation via nasal cannula and I will not proceed with diuresis at present time. Once her hemodynamics are a little bit more ascertained, I will restart ALANNA inhibitors for her CHF with preserved EF (in extrapolation and generalization of post-hoc analysis of PEP-CHF trial results). Her heart rate is controlled at present time. Will do bedside swallow eval and if passed, we will allow oral nutrition. OOB to chair. PT. Will continue to target euvolemia, euglycemia, normothermia and oxygen saturation more than 90%. Will continue with aspiration precaution. Will continue with DVT and GI prophylaxis. ccm time 40 min Fadi Ward MD cc: [id number] TT: 03/06/2017 08:52:09 Confirmation # [id number] Dictation # [id number] sherman MONROE
--- NOTE | 2017-03-06 09:21 | PN ---
DATE: 03/06/2017 She is in the intensive care unit. She is intubated, on the ventilator. She is alert and looking at me. I discussed with the monitoring coordinator to extubate her this morning. I think she is doing better. She is on calcium gluconate, daptomycin, dextrose, fentanyl, heparin, Levophed, Lopressor, Merrem IV, midazolam IV, Ofirmev, potassium replacement, Precedex, Protonix, Solu-Cortef, Synthroid, Zestril and Zyvox. PHYSICAL EXAMINATION: VITAL SIGNS: She has a 98.9 temp, 73 pulse, 122/73 blood pressure, 100% O2 sat on mechanical ventilator. GENERAL: She is alert, looking at me. She is aware of the situation, fairly comfortable. She cannot wait to be extubated. HEART: Regular rate. LUNGS: Decreased breath sounds bilaterally, but clear. ABDOMEN: Soft, healing from surgery, positive bowel sounds. EXTREMITIES: Have no edema. LABORATORY DATA: She has a 17 white count, it could be from the steroids, 8 hemoglobin. If it drops into the 7s, I will transfuse her. Hematocrit is 25.2 , platelets of 216. Sodium 137, potassium 3.5, being replaced, BUN 5, creatinine 0.7, GFR is greater than 60, sugar is 177, calcium is 4.3, being replaced, total bili is 0.4, AST ALT is 47, alk phos 245. Troponins of 0.56, 0.53, 0.22, 0.14. It is very possible she had a non-ST elevation myocardial infarction while she was in the intensive care unit. She has multiple issues, sepsis, gastrointestinal bleed, systemic inflammatory response syndrome, urinary tract infection, status post colon cancer surgery, atrial fibrillation, migraine headaches. I will check her labs tomorrow. Hopefully, we can extubate her today. Wily Barton DO cc: [id number] TT: 03/06/2017 09:20:23 Confirmation # [id number] Dictation # [id number] en MTDD
[2017-03-06] MEDS ORDERED: Linezolid 600 mg in D5W 300 ml 600 MG/300 ML BAG IVPB SCH (10:00)
[2017-03-06] MEDS: Meropenem 1g/NS 100mL IVPB 1 GM/100 ML PIGGYBACK IVPB SCH ×2 (10:09→21:18)
[2017-03-06] MEDS: Levothyroxine 112 MCG TAB PO SCH (10:11)
--- NOTE | 2017-03-06 10:22 | RAD ---
HISTORY: intubated COMPARISON: 03/05/2017. FINDINGS: The endotracheal tube terminates 1.0 cm proximal to the myla. The nasogastric tube terminates in the stomach. The left subclavian line terminates in the SVC. LUNGS: No active pulmonary disease. PLEURA: Again seen are bilateral pleural effusions, larger on the right. No pneumothorax. CARDIOVASCULAR: Normal. OSSEOUS STRUCTURES: No significant abnormalities. VISUALIZED UPPER ABDOMEN: Normal. OTHER FINDINGS: None. IMPRESSION: No significant interval change in bilateral pleural effusions, larger on the right. No pneumothorax. Stable position of line and tubes.
--- NOTE | 2017-03-06 10:49 | PN ---
DATE: 03/06/2017 The patient is postoperative day 1 for removal of a Port-A-Cath with VRE bacteremia -- sepsis and hyp otension. The patient at or about the same time yesterday developed severe atrial fibrillation -- ta chycardia over 220 requiring chemical conversion with amiodarone and 3 L of fluid to correct the hypo tension. She had developed a troponin of 0.5 which has now dropped to below 0.2 and she is awake, al ert, communicative, and tolerating clear liquids at this point. She has been extubated after the wali maurice and has good blood pressure and good ventilation and is off all pressor agents. Extensive discussion was held with the patient, explaining what happened to her and she is aware that , following the recurrence of the colon cancer with the liver metastasis and chemotherapy for the pas t several months that she underwent surgery on 02/08 and for the next 3 weeks, she has been recovering from same. She was admitted with mild evidence of anemia and possible gastritis -- GI bleeding. Juana pritchard is not eating very well and essentially is in a starvation state. She finds it difficult to swallo w and the swallowing evaluation has been initiated and therapy will be starting now. Esophagogram de monstrates an absence of obstruction, although there are tertiary contractions. The patient has a triple-lumen catheter and has good access and will be able to get a Port-A-Cath in the future after completely clearing all of the VRE bacteremia. Medicines can be given by mouth. Clear liquids can be given and progressed slowly up as the patient will tolerate it and no further surgical plans at this point. Hemoglobin today is 8 and 1 unit of bl ood is suggested for transfusion because of the patient's extreme iron deficiency and inability to ea t. This dictation will be electronically signed without being read. Naren Odonnell MD cc: [phone] TT: 03/06/2017 10:48:32 Confirmation # [id number] Dictation # [id number] tn
--- NOTE | 2017-03-06 12:08 | CP.PCM.PN ---
Subjective - Date & Time of Evaluation Date of Evaluation: 03/06/17 Time of Evaluation: 08:40 - Subjective Subjective: Anterior chest wall port was removed yesterday. Patient is now extubated, still feels weak and tired, no fevers overnight. Objective - Vital Signs/Intake and Output Vital Signs (last 24 hours): Temp Pulse Resp BP Pulse Ox 99.2 F 71 18 109/62 100 03/06/17 00:00 03/06/17 03:00 03/05/17 09:31 03/06/17 03:00 03/06/17 03:00 Intake and Output: 03/05/17 03/06/17 18:59 06:59 Intake Total 5037 250 Output Total 1660 Balance 3377 250 - Medications Medications: Current Medications Heparin Sodium (Porcine) (Heparin) 5,000 units SC Q12 JEAN CARLOS PRN Reason: Protocol Last Admin: 03/05/17 22:11 Dose: 5,000 units Hydrocortisone Sodium Succinate (Solu-Cortef) 50 mg IVP Q6H JEAN CARLOS Last Admin: 03/06/17 01:59 Dose: 50 mg Meropenem 1g/NS 100mL IVPB (Meropenem 1g/Ns 100ml Ivpb) 1 gm in 100 mls @ 100 mls/hr IVPB Q12 JEAN CARLOS PRN Reason: Protocol Stop: 03/08/17 22:01 Last Admin: 03/05/17 22:11 Dose: 100 mls/hr Dextrose/Sodium Chloride (Dextrose 5%/0.9% Ns 1000 Ml) 1,000 mls @ 100 mls/hr IV .Q10H JEAN CARLOS Last Admin: 03/06/17 03:27 Dose: 100 mls/hr Daptomycin 410 mg/ Sodium (Chloride) 100 mls @ 200 mls/hr IV Q24H JEAN CARLOS Stop: 03/18/17 10:01 Last Admin: 03/05/17 11:28 Dose: 200 mls/hr Acetaminophen (Ofirmev) 1,000 mg in 100 mls @ 400 mls/hr IVPB Q6H PRN PRN Reason: temp Stop: 03/07/17 08:45 Last Admin: 03/05/17 15:27 Dose: 400 mls/hr Fentanyl Citrate (Fentanyl Citrate/Sodium Chloride 1 Mg/100 Ml) 1,000 mcg in 100 mls @ 2 mls/hr IV .Q24H PRN; Protocol; 20 MCG/HR PRN Reason: TITRATE PER MD ORDER Last Titration: 03/05/17 14:16 Dose: 0 mcg/hr, 0 mls/hr Midazolam 100 mg/100ml in NS (Midazolam 100 Mg/100ml In Ns) 100 mg in 100 mls @ 1 mls/hr IV .Q24H PRN; Protocol; 1 MG/HR PRN Reason: Sedation Dexmedetomidine HCl (Precedex 4 Mcg/Ml (100 Ml)) 400 mcg in 100 mls @ 3.447 mls /hr IV .Q24H PRN; Protocol; 0.2 MCG/KG/HR PRN Reason: Sedation Last Titration: 03/05/17 17:15 Dose: 0 mcg/kg/hr, 0 mls/hr NOREPINEPHRINE BIT/0.9 % NACL (Levophed 4 Mg/ 250 Ml Ns Premixed) 4 mg in 250 mls @ 15 mls/hr IV .[id number] PRN; Protocol; 4 MCG/MIN PRN Reason: TITRATE PER MD ORDER Last Titration: 03/06/17 02:08 Dose: 0 mcg/min, 0 mls/hr Vasopressin 20 units/ Dextrose 101 mls @ 9.09 mls/hr IV .Q11H7M JEAN CARLOS; 0.03 U/MIN PRN Reason: Protocol Last Admin: 03/05/17 19:00 Dose: 9.09 mls/hr Levothyroxine Sodium (Synthroid) 67.5 mcg IVP DAILY JEAN CARLOS Last Admin: 03/02/17 10:12 Dose: 67.5 mcg Levothyroxine Sodium (Synthroid) 112 mcg PO DAILY JEAN CARLOS Last Admin: 03/05/17 10:15 Dose: 112 mcg Lisinopril (Zestril) 10 mg PO DAILY JEAN CARLOS Last Admin: 03/05/17 10:15 Dose: 10 mg Metoprolol Tartrate (Lopressor) 50 mg PO BID JEAN CARLOS Last Admin: 03/05/17 18:03 Dose: Not Given Pantoprazole Sodium (Protonix Inj) 40 mg IVP Q12 JEAN CARLOS Last Admin: 03/05/17 22:11 Dose: 40 mg - Labs Labs: 03/05/17 13:28 03/05/17 13:28 PT 12.6 Seconds (9.9-11.8) H 03/04/17 05:45 INR 1.17 (0.93-1.08) H 03/04/17 05:45 APTT 41.1 Seconds (23.7-30.8) H 03/04/17 05:45 - Constitutional Appears: Chronically Ill - Head Exam Head Exam: NORMAL INSPECTION - Neck Exam Neck Exam: absent: Meningismus - Respiratory Exam Respiratory Exam: Decreased Breath Sounds - Cardiovascular Exam Cardiovascular Exam: +S1, +S2 - GI/Abdominal Exam GI & Abdominal Exam: Soft. absent: Tenderness Assessment and Plan - Assessment and Plan (Free Text) Plan: Assessment severe Sepsis S/P ventilator-dependent respiratory failure due to Vancomycin- resistant Enterococcus faecium bacteremia, consider port infection S/P removal POD #1; patient also with enteritis /colitis stage 4 colon cancer, S/P colon resection at [facility] Feb 08 2017 probable recurrent pleural effusions S/P pleurex catheter placement indwelling Castro catheter history of diverticulitis chronic renal failure Plan continue Merrem day 6 and Daptomycin IV day 3; repeat blood cx are negative; 2D echo does not show vegetations; reviewed CT abdomen and pelvis and discussed with Dr. Whelan - right lower lobe is probably more atelectasis will continue to monitor clinically Overall prognosis is poor
--- NOTE | 2017-03-06 13:56 | PN ---
DATE: 03/06/2017 The patient is extubated. She is awake, alert, without complaints. PHYSICAL EXAMINATION: VITAL SIGNS: Blood pressure 109/60, the heart rate is in normal sinus rhythm in the 80s. NECK: Negative JVD. LUNGS: Decreased breath sounds. HEART: Reveals S1, S2. EXTREMITIES: Without change. LABORATORIES: Hemoglobin is 8.0, white count is up to 17,000. Troponin is 0.04, which is a downward s trend from 0.56. BUN and creatinine are unremarkable. IMPRESSION: 1. Status post respiratory failure. The patient has been stable post extubation. 2. The patient remains in normal sinus rhythm. 3. Marked anemia. 4. Sepsis. 5. Remote wdk-OO-lcryckela myocardial infarction. 6. Status post abdominal surgery at [facility] PLAN: Given these findings, will need to follow the CBC. Her respiratory status is stable. Willie House MD cc: [id number] TT: 03/06/2017 13:55:51 Confirmation # [id number] Dictation # [id number] mn
[2017-03-06 14:26] LABS: ADD MANUAL DIFF? NO
[2017-03-06 14:29] LABS: BASO # 0.02 K/mm3 (0.0-2.0); BASO % 0.1 % (0.0-3.0); GRAN # 22.22 (1.4-6.5); HEMATOCRIT 24.8 % (36.0-48.0); LYMPH # 1.4 (1.2-3.4); LYMPH % 5.9 % (22.0-35.0); MEAN CELL VOLUME 89.2 fL (80.0-105.0); MEAN CORPUSCULAR HEMOGLOBIN 29.1 pg (25.0-35.0); MEAN CORPUSCULAR HGB CONC 32.7 g/dl (31.0-37.0); MEAN PLATELET VOLUME 9.1 fl (7.0-11.0); MONO # 0.5 (0.1-0.6); PLATELET COUNT 227 10^3/uL (120.0-450.0); RED CELL DISTRIBUTION WIDTH 19.8 % (11.5-14.5); WHITE BLOOD COUNT 24.2 10^3/ul (4.5-11.0)
[2017-03-06] MEDS ORDERED: Magnesium Sulfate 2 GM in Sodium Chloride 0.9% 100 ML IVPB ONE (14:44)
[2017-03-06 15:32] LABS: ALB/GLOB RATIO 0.6 (1.1-1.8); ALKALINE PHOSPHATASE 242 U/L (38-133); ALT/SGPT 41 U/L (7-56); AST/SGOT 54 U/L (15-39); BILIRUBIN,TOTAL 0.4 mg/dL (0.2-1.3); BLOOD UREA NITROGEN 7 mg/dL (7-21); CARBON DIOXIDE 19 mmol/L (21-33); CHLORIDE 112 mmol/L (98-107); GFR AFRICAN-AMERICAN > 60; GLUCOSE,RANDOM 119 mg/dL (70-110); POTASSIUM 3.5 mmol/L (3.6-5.0); SODIUM 138 mmol/L (132-148); TOTAL PROTEIN 5.2 g/dL (5.8-8.3)
[2017-03-06 16:00] LABS: CALCIUM 4.7 mg/dL (8.4-10.5)
[2017-03-06] MEDS ORDERED: Potassium Chloride 40 mEq/30 ml LIQ UD PO ONE (16:06)
--- NOTE | 2017-03-06 16:17 | PN ---
DATE: 03/06/2017 Seen and examined at the bedside earlier today. The patient is now extubated and is on nasal cannula . She appears lethargic but is awake and answering questions. No reports of any overt GI bleed. Th e patient has had no reports of any bowel movement. The patient denies any nausea or vomiting. VITAL SIGNS: Temperature is 98.9, blood pressure is 118/64, pulse 86, respirations 30, 100 O2 satura tion on oxygen. LABORATORY DATA: WBC 24.2, H and H are 8.1 and 24.8, platelets are 227. Sodium 137, K is 3.5, BUN i s 5, creatinine is 0.7. Calcium is 4.3. Total bilirubin is 0.4, AST 58, ALT 47, alkaline phosphatas e is 245. The troponin is 0.14; this is much improved; at 12 midnight it was 0.22. PHYSICAL EXAMINATION: HEENT: Sclerae are anicteric. NECK: Supple. CARDIAC: S1, S2. LUNGS: With decreased breath sounds at the bases, but no rales or wheeze. ABDOMEN: With bowel sounds. Soft. It is not tender. She has the mid surgical incision with few st aples that is dry and intact with no rebound or guarding. EXTREMITIES: The patient is awake and verbal. ASSESSMENT: This is a 66-year-old female with sepsis; she has history of colon cancer, status post h epatic wedge resection, colon resection and cholecystectomy; came with complaints of melena and weakn ess. Now patient with positive vancomycin-resistant Enterococci, history of atrial fibrillation, was acidotic; went into supraventricular tachycardia yesterday and acidotic and was intubated; she is no w extubated. The patient also with anemia, status post blood transfusion. Has not had any further e pisodes of melena. She at one point complained of difficulty swallowing. Esophagram was done and wa s negative for any strictures, hiatal hernia or reflux disease. The patient was hypotensive at one p oint and started on Levophed. At present time, her blood pressure has improved. She remains on IV a ntibiotics, daptomycin and meropenem. She did have a stool for Clostridium difficile stent and that was negative. Continue GI prophylaxis. She is on Protonix q. 12, on Levophed. Hypomagnesium; gett ing magnesium replacements, and is on Solu-Cortef. Continue IV fluids for hydration. Will continue to follow closely. Seen and discussed with Dr. Fernandez. Vanessa ROTHMAN cc: [id number] TT: 03/06/2017 16:17:19 Confirmation # [id number] Dictation # [id number] mn
--- NOTE | 2017-03-06 21:56 | PN ---
DATE: 03/06/2017 ADDENDUM This is an addendum to the GI progress report dictated by Vanessa Garcia APN. The patient is now extub ated much more comfortable. This patient does have port was taken out yesterday. We tiera l continue to follow up the hemoglobin and hematocrit. No further episodes of GI bleeding. Continue the PPI. The patient's p.o. intake still remains poor. Esophagogram done earlier did not show any obstruction. It is reasonable to consider endoscopy after optimization of the patient's condition. Thank you very much for allowing us to participate in the care to the patient. Jace Fernandez MD cc: [id number] TT: 03/06/2017 21:55:13 Confirmation # [id number] Dictation # [id number] ln
[2017-03-07] MEDS: Dextrose 5%/0.9% NS 1,000 ML IV SCH ×3 (01:17→20:53)
[2017-03-07] MEDS ORDERED: Metoprolol 1 mg/ml Inj IVP ONE ×3 (04:45→17:30)
[2017-03-07 05:56] LABS: ARTERIAL BLOOD GAS HCO3 16.5 mmol/L (21-28); ARTERIAL BLOOD GAS O2 CONTENT 19.8 ML/dl (15-23); ARTERIAL BLOOD GAS PH 7.41 (7.35-7.45); ARTERIAL BLOOD HGB O2 SAT 95.9 % (95.0-98.0); CARBOXYHEMOGLOBIN 1.7 % (0.5-1.5); HHB 1.2 % (0-5); METHEMOGLOBIN 1.2 % (0.0-3.0)
[2017-03-07 06:18] LABS: ALB/GLOB RATIO 0.7 (1.1-1.8); ALKALINE PHOSPHATASE 245 U/L (38-133); ALT/SGPT 44 U/L (7-56); AST/SGOT 45 U/L (15-39); BILIRUBIN,TOTAL 0.4 mg/dL (0.2-1.3); BLOOD UREA NITROGEN 8 mg/dL (7-21); CARBON DIOXIDE 19 mmol/L (21-33); CHLORIDE 115 mmol/L (98-107); GFR AFRICAN-AMERICAN > 60; GLUCOSE,RANDOM 130 mg/dL (70-110); POTASSIUM 3.6 mmol/L (3.6-5.0); SODIUM 141 mmol/L (132-148); TOTAL PROTEIN 5.6 g/dL (5.8-8.3)
[2017-03-07 06:27] LABS: MEAN CORPUSCULAR HEMOGLOBIN 29.8 pg (25.0-35.0); MEAN CORPUSCULAR HGB CONC 33.1 g/dl (31.0-37.0); MEAN PLATELET VOLUME 9.5 fl (7.0-11.0); RED CELL DISTRIBUTION WIDTH 20.2 % (11.5-14.5); WHITE BLOOD COUNT 23.1 10^3/ul (4.5-11.0)
[2017-03-07 06:43] LABS: CALCIUM 4.8 mg/dL (8.4-10.5)
--- NOTE | 2017-03-07 07:50 | CP.PCM.PN ---
<Eli Shaikh - Last Filed: 03/07/17 11:21> Subjective - Date & Time of Evaluation Date of Evaluation: 03/07/17 Time of Evaluation: 07:29 - Subjective Subjective: ICU Progress Note Patient seen and examined at bedside. Overnight patient became tachycardic in 150s. She was given Lopressor once and HR became stable. She says she feels better this AM. She says her son fed her and she ate well yesterday. She would like to get out of bed, but does feel a little SOB. She denies CP, n/v/d, numbness/tingling, fever or chills. Objective - Vital Signs/Intake and Output Vital Signs (last 24 hours): Temp Pulse Resp BP Pulse Ox 98.6 F 95 H 53 H 168/78 H 100 03/07/17 04:00 03/07/17 07:07 03/07/17 07:07 03/07/17 07:00 03/07/17 04:39 Intake and Output: 03/07/17 03/07/17 06:59 18:59 Intake Total 1300 Output Total 325 Balance 975 - Medications Medications: Current Medications Heparin Sodium (Porcine) (Heparin) 5,000 units SC Q12 [facility] PRN Reason: Protocol Last Admin: 03/06/17 21:17 Dose: 5,000 units Hydrocortisone Sodium Succinate (Solu-Cortef) 50 mg IVP Q8H [facility] Last Admin: 03/07/17 00:23 Dose: 50 mg Meropenem 1g/NS 100mL IVPB (Meropenem 1g/Ns 100ml Ivpb) 1 gm in 100 mls @ 100 mls/hr IVPB Q12 [facility] PRN Reason: Protocol Stop: 03/08/17 22:01 Last Admin: 03/06/17 21:18 Dose: 100 mls/hr Dextrose/Sodium Chloride (Dextrose 5%/0.9% Ns 1000 Ml) 1,000 mls @ 100 mls/hr IV .Q10H [facility] Last Admin: 03/07/17 01:17 Dose: 100 mls/hr Daptomycin 410 mg/ Sodium (Chloride) 100 mls @ 200 mls/hr IV Q24H [facility] Stop: 03/18/17 10:01 Last Admin: 03/06/17 10:09 Dose: 200 mls/hr Acetaminophen (Ofirmev) 1,000 mg in 100 mls @ 400 mls/hr IVPB Q6H PRN PRN Reason: temp Stop: 03/07/17 08:45 Last Admin: 03/05/17 15:27 Dose: 400 mls/hr Dexmedetomidine HCl (Precedex 4 Mcg/Ml (100 Ml)) 400 mcg in 100 mls @ 3.447 mls /hr IV .Q24H PRN; Protocol; 0.2 MCG/KG/HR PRN Reason: Sedation Last Titration: 03/05/17 17:15 Dose: 0 mcg/kg/hr, 0 mls/hr Calcium Gluconate 1,000 mg/ (Sodium Chloride) 110 mls @ 110 mls/hr IVPB ONCE ONE Stop: 03/07/17 07:47 Calcium Gluconate 1,000 mg/ (Dextrose) 110 mls @ 110 mls/hr IVPB ONCE ONE Stop: 03/07/17 08:59 Levothyroxine Sodium (Synthroid) 112 mcg PO DAILY [facility] Last Admin: 03/06/17 10:11 Dose: 112 mcg Lisinopril (Zestril) 10 mg PO DAILY [facility] Last Admin: 03/05/17 10:15 Dose: 10 mg Metoprolol Tartrate (Lopressor) 50 mg PO BID [facility] Last Admin: 03/06/17 19:31 Dose: Not Given Pantoprazole Sodium (Protonix Inj) 40 mg IVP Q12 [facility] Last Admin: 03/06/17 10:16 Dose: 40 mg - Labs Labs: 03/07/17 05:55 03/07/17 05:55 PT 12.6 Seconds (9.9-11.8) H 03/04/17 05:45 INR 1.17 (0.93-1.08) H 03/04/17 05:45 APTT 41.1 Seconds (23.7-30.8) H 03/04/17 05:45 - Constitutional Appears: No Acute Distress - Head Exam Head Exam: ATRAUMATIC, NORMAL INSPECTION, NORMOCEPHALIC - Eye Exam Eye Exam: Normal appearance, PERRL Pupil Exam: NORMAL ACCOMODATION, PERRL - ENT Exam ENT Exam: Mucous Membranes Moist - Respiratory Exam Respiratory Exam: Rales (at bases), NORMAL BREATHING PATTERN. absent: Clear to Ausculation Bilateral, Rhonchi, Wheezes - Cardiovascular Exam Cardiovascular Exam: REGULAR RHYTHM, +S1, +S2. absent: Gallop, Rubs, Murmur - GI/Abdominal Exam GI & Abdominal Exam: Soft, Normal Bowel Sounds. absent: Rigid, Tenderness, Mass , Rebound Additional comments: midline incision with some jitendra in place- clean and dry. - Extremities Exam Extremities Exam: Normal Inspection. absent: Calf Tenderness, Pedal Edema - Neurological Exam Neurological Exam: Alert, Awake, CN II-XII Intact, Oriented x3 - Psychiatric Exam Psychiatric exam: Normal Affect, Normal Mood - Skin Skin Exam: Dry, Intact, Normal Color, Warm Assessment and Plan - Assessment and Plan (Free Text) Assessment: This is a 66Y F with PMG of Colon cancer stage IV s/p chemo and s/p resection on February 08 at [facility]. She was admitted for sepsis complicated by A.fib with RVR. She had respiratory failure and was intubated then extubated next day. Patient noted to have VRE bacteremia most likely secondary to chronic port and hepatic drain. Both which have been removed. Plan: Neuro: A&O x 3 Maintain normothermia CV: A. fib with RVR-now rate controlled Continue Lopressor, Lisinopril Consider CHIP echo - if repeat BC continue to be positive despite port removal and abx therapy Cardio consulted- recs appreciated Pulm: Patient comfortable on NC Maintain SpO2>90% DC stress dose steroids CXR showed pulm vasc congestion Will give Lasix 40mg IVP once GI: Patient tolerating diet Continue to monitor intake On D5/NS@100 Neprho: Continue to monitor I&O- Urine output decreased Hypocalcemia- will continue to monitor and replace as needed Will obtain PTH and vit D Will start PO Calcium/Vit D Heme: Hgb stable- no overt signs of bleeding Continue to monitor ID: Afebrile, Leukocytosis - but was on steroids Continue Daptomycin, Merrem ID consulted-recs appreciated Blood culture + x 4 Will repeat daily BC Endo: Continue Synthroid Maintain euglycemia GI ppx: PTX DVT ppx: Heparin SC Case seen, discussed and reviewed with attending. Farida Shaikh PGY1 <Rukhsana BROWN,Vega H - Last Filed: 03/07/17 14:25> Objective - Vital Signs/Intake and Output Vital Signs (last 24 hours): Temp Pulse Resp BP Pulse Ox 97.5 F L 82 24 155/93 H 97 03/07/17 12:00 03/07/17 12:59 03/07/17 12:59 03/07/17 13:00 03/07/17 12:59 Intake and Output: 03/07/17 03/07/17 06:59 18:59 Intake Total 1300 Output Total 325 Balance 975 - Medications Medications: Current Medications Albuterol/Ipratropium (Duoneb 3 Mg/0.5 Mg (3 Ml) Ud) 3 ml IH Q2H PRN PRN Reason: Shortness of Breath Last Admin: 03/07/17 10:52 Dose: 3 ml Albuterol/Ipratropium (Duoneb 3 Mg/0.5 Mg (3 Ml) Ud) 3 ml IH O3ETPID [facility] Last Admin: 03/07/17 13:03 Dose: 3 ml Calcium/Vitamin D (Oscal-D 250 Mg-125 Units Tab) 1 tab PO DAILY [facility] Heparin Sodium (Porcine) (Heparin) 5,000 units SC Q12 [facility] PRN Reason: Protocol Last Admin: 03/07/17 09:39 Dose: 5,000 units Meropenem 1g/NS 100mL IVPB (Meropenem 1g/Ns 100ml Ivpb) 1 gm in 100 mls @ 100 mls/hr IVPB Q12 [facility] PRN Reason: Protocol Stop: 03/08/17 22:01 Last Admin: 03/07/17 09:38 Dose: 100 mls/hr Dextrose/Sodium Chloride (Dextrose 5%/0.9% Ns 1000 Ml) 1,000 mls @ 100 mls/hr IV .Q10H [facility] Last Admin: 03/07/17 11:00 Dose: 100 mls/hr Daptomycin 410 mg/ Sodium (Chloride) 100 mls @ 200 mls/hr IV Q24H [facility] Stop: 03/18/17 10:01 Last Admin: 03/07/17 10:59 Dose: 200 mls/hr Levothyroxine Sodium (Synthroid) 112 mcg PO DAILY [facility] Last Admin: 03/07/17 09:39 Dose: 112 mcg Lisinopril (Zestril) 10 mg PO DAILY [facility] Last Admin: 03/07/17 09:39 Dose: 10 mg Metoprolol Tartrate (Lopressor) 50 mg PO BID [facility] Last Admin: 03/07/17 09:39 Dose: 50 mg Pantoprazole Sodium (Protonix Inj) 40 mg IVP Q12 [facility] Last Admin: 03/07/17 09:38 Dose: 40 mg - Labs Labs: 03/07/17 05:55 03/07/17 05:55 PT 12.6 Seconds (9.9-11.8) H 03/04/17 05:45 INR 1.17 (0.93-1.08) H 03/04/17 05:45 APTT 41.1 Seconds (23.7-30.8) H 03/04/17 05:45 Attending/Attestation - Attestation I have personally seen and examined this patient.: Yes I have fully participated in the care of the patient.: Yes I have reviewed all pertinent clinical information, including history, physical exam and plan: Yes Notes (Text): 03/07/17 14:21 66 y/o F w/ Transient bactermia and resolved Septic shock and VDRF Bactermia likely from infected PORT, which was removed. Repeat Blood cx were positive on 03/05. Repeat CX sent today to check for clearance. ABX started w/ Daptomycin for duration timing from last positive blood cx. Duration 3-4 weeks? Currently no further Afib, overnight received lopressor . Urine output low in the setting of fluid overload and B/L pleural effusions. Lasix given , monitor urine output. Surgical team aware of her Post op state and wound care etc . DVT P PPI PT/OT needed cc time 65 min
--- NOTE | 2017-03-07 08:45 | PN ---
DATE: 03/07/2017 I saw her in the intensive care unit. She is now extubated. She is on oxygen. Not great, but breat mikel a little bit better off the ventilator. She is in no pain. She ate a little bit yesterday, lan e chicken noodle soup from her family. MEDICATIONS: She is calcium replacement, daptomycin, IV antibiotics, dextrose, heparin, Lopressor, M errem IV, Precedex, Protonix, Solu-Cortef, Synthroid and Zestril. PHYSICAL EXAMINATION: VITAL SIGNS: 97.5 temp, 88 pulse, 168/78 blood pressure, 20 respiratory rate, and 95% O2 sat on oxyg en. HEENT: Head is atraumatic, normocephalic. HEART: Regular rate. LUNGS: Decreased breath sounds but for the most part clear. ABDOMEN: Soft, status post colon surgery and resection. She is eating and moving her bowels. EXTREMITIES: Have no edema, but she is very weak. LABORATORY DATA: She has a 23.1 white count (she is on IV antibiotics), hemoglobin is 8.6 (better), hematocrit is 26, platelets are 241. She has a 141 sodium, potassium 3.6, BUN 8, creatinine 0.6, GFR is greater than 60, sugar is 130, calcium is 4.8 (it is being replaced). Total bili is 0.4, AST is 45, ALT is 44, alk phos 245, and total protein is 5.6. She is being seen by the fish cutter, GI, cardiology, surgery, pulmonary. She is status post respiratory failure, anemia, sepsis. She had a run of atrial fibrillation again l ast night I believe. I am waiting for cardiology to possibly put her medications; third night in a row the heart rate went up with a very fast heart rate. Will continue aggressive treatment and care in the intensive unit w ith IV antibiotics. Wily Barton DO cc: [id number] TT: 03/07/2017 08:44:17 Confirmation # [id number] Dictation # [id number] mn
--- NOTE | 2017-03-07 09:31 | CP.PCM.PCO ---
Physician Communication Note - Physician Communication Note Physician Communication Note: +Bacteremic sepsis/Fluid overloaded/+Tachycardia
--- NOTE | 2017-03-07 09:32 | PN ---
DATE: 03/07/2017 The patient was seen and examined at bedside in critical care unit. VITAL SIGNS: Her temperature is 96.5, pulse is 90, respirations 20, pulse oximetry is 95 on room air . Blood pressure is 160/70. LABORATORY DATA: I reviewed today's arterial blood gas, pH is 7.41, pCO2 of 26 and pO2 of 96. Her c arbon dioxide is reduced to 19. PHYSICAL EXAMINATION: HEAD, EARS, NOSE AND THROAT: Within normal limits. NECK: Supple with no jugular vein distension. CARDIOVASCULAR: S1, S2, no S3, irregular. PULMONARY: Clear to auscultation. Slightly diminished at both lung bases. GASTROINTESTINAL: Soft, slightly tender in epigastric area. EXTREMITIES: No pedal edema. SKIN: No skin rashes, no cyanosis. NEUROLOGIC: Limited at present time. I reviewed her portable chest x-ray which reveals clear lungs in the upper two-thirds of both lungs; however, there are atelectatic changes at both lung bases. No acute infiltrates and no congestive ch anges. ASSESSMENT: 1. Status post respiratory failure. 2. Sepsis. 3. Anemia.. 4. Recurrent atrial fibrillation. PLAN: The patient appears more stable this morning. Pulmonary gonsalez, she does not show any signs of respiratory compromise and her arterial blood gas shows a reduced level of pCO2 and normal level of p O2. She is status post successful extubation 1 day prior to and holding her own. She will continue with administration of antibiotics as per usability strategist and infectious disease service. At this point, we will keep her on nasal cannula with her nebulizer treatment and follow closely. Clem Ibarra MD cc: [id number] TT: 03/07/2017 09:31:07 Confirmation # [id number] Dictation # [id number] az
[2017-03-07] MEDS ORDERED: Magnesium Sulfate 1 gm in D5W 1 GM/100 ML BAG IVPB ONE (09:38)
[2017-03-07] MEDS: Meropenem 1g/NS 100mL IVPB 1 GM/100 ML PIGGYBACK IVPB SCH ×2 (09:38→21:34)
[2017-03-07] MEDS: Levothyroxine 112 MCG TAB PO SCH (09:39)
--- NOTE | 2017-03-07 10:09 | CP.PCM.PN ---
Subjective - Date & Time of Evaluation Date of Evaluation: 03/07/17 Time of Evaluation: 08:00 - Subjective Subjective: Surgery Progress Note for Dr. Odonnell Patient seen and examined at bedside. Patient was extubated and pressors were discontinued yesterday. Patient had an episode of tachycardia overnight, lopressor was given. Patient has incentive spirometer at bedside but has not been using as much. Denies having headache, fever, chills, shortness of breath, chest pain, abdominal pain, nausea or vomiting. Objective - Vital Signs/Intake and Output Vital Signs (last 24 hours): Temp Pulse Resp BP Pulse Ox 97.5 F L 90 20 168/78 H 95 03/07/17 07:47 03/07/17 07:47 03/07/17 07:47 03/07/17 07:47 03/07/17 07:47 Intake and Output: 03/07/17 03/07/17 06:59 18:59 Intake Total 1300 Output Total 325 Balance 975 - Medications Medications: Current Medications Heparin Sodium (Porcine) (Heparin) 5,000 units SC Q12 [facility] PRN Reason: Protocol Last Admin: 03/06/17 21:17 Dose: 5,000 units Hydrocortisone Sodium Succinate (Solu-Cortef) 50 mg IVP Q8H [facility] Last Admin: 03/07/17 08:18 Dose: 50 mg Meropenem 1g/NS 100mL IVPB (Meropenem 1g/Ns 100ml Ivpb) 1 gm in 100 mls @ 100 mls/hr IVPB Q12 [facility] PRN Reason: Protocol Stop: 03/08/17 22:01 Last Admin: 03/06/17 21:18 Dose: 100 mls/hr Dextrose/Sodium Chloride (Dextrose 5%/0.9% Ns 1000 Ml) 1,000 mls @ 100 mls/hr IV .Q10H [facility] Last Admin: 03/07/17 01:17 Dose: 100 mls/hr Daptomycin 410 mg/ Sodium (Chloride) 100 mls @ 200 mls/hr IV Q24H [facility] Stop: 03/18/17 10:01 Last Admin: 03/06/17 10:09 Dose: 200 mls/hr Magnesium Sulfate/Dextrose (Magnesium Sulfate 1 Gm/100 Ml D5w) 1 gm in 100 mls @ 100 mls/hr IVPB ONCE ONE Stop: 03/07/17 10:37 Levothyroxine Sodium (Synthroid) 112 mcg PO DAILY [facility] Last Admin: 03/06/17 10:11 Dose: 112 mcg Lisinopril (Zestril) 10 mg PO DAILY [facility] Last Admin: 03/05/17 10:15 Dose: 10 mg Metoprolol Tartrate (Lopressor) 50 mg PO BID [facility] Last Admin: 03/06/17 19:31 Dose: Not Given Pantoprazole Sodium (Protonix Inj) 40 mg IVP Q12 [facility] Last Admin: 03/06/17 10:16 Dose: 40 mg - Labs Labs: 03/07/17 05:55 03/07/17 05:55 PT 12.6 Seconds (9.9-11.8) H 03/04/17 05:45 INR 1.17 (0.93-1.08) H 03/04/17 05:45 APTT 41.1 Seconds (23.7-30.8) H 03/04/17 05:45 - Constitutional Appears: Non-toxic, No Acute Distress, Chronically Ill - Head Exam Head Exam: ATRAUMATIC, NORMAL INSPECTION - Eye Exam Eye Exam: EOMI, Normal appearance - ENT Exam ENT Exam: Mucous Membranes Moist - Neck Exam Neck Exam: Normal Inspection - Respiratory Exam Respiratory Exam: absent: Respiratory Distress - Cardiovascular Exam Cardiovascular Exam: +S1, +S2 Additional comments: Right chest subclavian TLC dressing clean, dry and intact. No signs of infection appreciated. - GI/Abdominal Exam GI & Abdominal Exam: Soft. absent: Tenderness Additional comments: midline jitendra from 02/06/17 surgery dry, clean, intact. No signs of infection appreciated. - Extremities Exam Extremities Exam: Normal Capillary Refill - Neurological Exam Neurological Exam: Alert, Awake, Oriented x3 - Skin Skin Exam: Normal Color, Warm Assessment and Plan - Assessment and Plan (Free Text) Assessment: 66 year old female S/P chemoport removal and subclavian TLC placement POD#2, was found to have bacteremia and melanotic stool s/p recent colon/liver resection at [facility] [[email or web address]] with hepatic drain Plan: -Pt will follow up with [facility] [[email or web address]] surgeon for surgical issues related to cancer resection -H/H improving -Blood culture collected on 03/05 positive for Gram positive cocci -GI workup, endoscopy once pt stabilized -Medical management per ICU/Primary team -Will D/W attending Dr. Odonnell
[2017-03-07] MEDS ORDERED: Albuterol-Ipratrop 3 mg / 0.5 (3 ml) UD IH PRN (10:41)
--- NOTE | 2017-03-07 11:00 | PN ---
DATE: 03/07/2017 The patient with an episode of tachycardia at night. PHYSICAL EXAMINATION: VITAL SIGNS: Blood pressure is 167/100. Heart rate currently is in the 90s. NECK: Negative JVD. LUNGS: Decreased breath sounds. HEART: Reveals S1, S2. EXTREMITIES: Without change. White count is up to 23,000. Chemistries: BUN and creatinine are unremarkable. IMPRESSION: 1. Sepsis. 2. Sinus tachycardia, secondary to sepsis. 3. Anemia. 4. History of abdominal surgery. Given these findings, I agree with the plan to survey her blood cultures since her central line has b een removed. Willie House MD cc: [id number] TT: 03/07/2017 10:59:51 Confirmation # [id number] Dictation # [id number]
--- NOTE | 2017-03-07 11:34 | RAD ---
HISTORY: f/u COMPARISON: 03/06/2017 FINDINGS: LUNGS: The lungs are clear. PLEURA: Again seen are bilateral pleural effusions, larger on the right. No pneumothorax. CARDIOVASCULAR: Normal. OSSEOUS STRUCTURES: No significant abnormalities. VISUALIZED UPPER ABDOMEN: Normal. OTHER FINDINGS: None. IMPRESSION: Bilateral pleural effusions, larger on the right. No change.
--- NOTE | 2017-03-07 11:37 | PN ---
DATE: 03/07/2017 Seen and examined at the bedside earlier today. The patient is awake and alert. Denies any nausea, vomiting, or abdominal pain. No reports of any melena or bright red blood per rectum, as per nursing staff. The patient states she is tolerating her diet. No complaints of any problems swallowing. VITAL SIGNS: Temperature is 97.5, blood pressure is 155/95, pulse is 94, respirations 20. LABORATORY DATA: WBC is 23.1, H and H is 8.6 and 26.0. Platelets are 241. Sodium 141, K is 3.6, BU N 8, creatinine is 0.6, phos is 1.6, total bilirubin is 0.4, AST 45, ALT 44, alkaline phosphatase is 245. The patient went for chest x-ray, result is pending. PHYSICAL EXAMINATION: HEENT: Sclerae are anicteric. NECK: Supple. CARDIAC: S1, S2. LUNGS: Decreased breath sounds at the bases, but positive air entry. ABDOMEN: With bowel sounds, soft, not tender. Surgical incision is dry and intact. NEUROLOGIC: Awake, alert, and oriented. ASSESSMENT: Sepsis, anemia, colon cancer with metastasis, status post hepatic wedge resection, colon resection and cholecystectomy, sepsis. PLAN: Continue her dysphagia diet as tolerated. Continue to monitor H and H. The patient is on IV a ntibiotics, daptomycin, on IV fluids, on DVT prophylaxis, heparin, meropenem, IV antibiotics and PPI. The patient was seen and case discussed with Dr. Fernandez. Vanessa ROTHMAN cc: [id number] TT: 03/07/2017 11:36:16 Confirmation # [id number] Dictation # [id number] saira
[2017-03-07] MEDS: Calcium-Vit D 250 mg-125 Units Tab UD PO SCH (13:00)
[2017-03-07] MEDS: Albuterol-Ipratrop 3 mg / 0.5 (3 ml) UD IH SCH ×2 (13:03→19:43)
--- NOTE | 2017-03-07 15:21 | PN ---
DATE: 03/07/2017 The patient is in bed in no acute distress, nontoxic. PHYSICAL EXAMINATION: VITAL SIGNS: Temperature is 98, blood pressure is 150/90, respiratory rate of 30, heart rate of 81. GENERAL: The patient seen early this morning in 128, bed 4. HEENT: Unremarkable. NECK: Supple. LUNGS: Decreased breath sounds. HEART: Normal S1, S2. ABDOMEN: Soft. LABORATORY EXAMINATION: Reveals a white count of 23,000, hemoglobin of 8, platelets of 241. Stores Clerk cooper reveal the BUN of 8, creatinine of 0.6, alk phos is 245. Urinalysis is noted. Microbiology rev eals gram-positive cocci in the blood and it is reported to be in pairs. Further identification and sensitivity is pending. PNA FISH is pending. Review of orders reveals the patient to be on daptomyc in and meropenem. Blood cultures from earlier in February positive for VRE. Vanessa Garcia' note is review ed. Dr. Willie House's note is also reviewed. Dr. Odonnell' progress note is reviewed. Dr. Odonnell' communication report is reviewed. The pathology report from the Port-A-Cath is also reviewed. ASSESSMENT AND PLAN: A 66-year-old female who was seen early this morning in the ICU 128, bed 4. Th e patient with severe sepsis, status post ventilatory-dependent respiratory failure, now extubated se condary to vancomycin-resistant enterococcus bacteremia, possible port infection. The Port-A-Cath soler s been removed, post-procedure day #2. Also, with colitis and enteritis in a patient with stage IV c olon cancer and status post colon resection at [facility] on 02/08 with recurrent pleural effusions and st atus post PleurX catheter placement. Currently on day #7 of meropenem and daptomycin day #4. Repeat blood cultures are now positive for gram-positive cocci which changes the days of therapy. Both bot tles are positive from 03/05. The Port-A-Cath was removed yesterday. We will repeat blood cultures x 2. Actually, the Port-A-Cath was removed on 03/05. Review of orders confirms the patient to be on daptomycin and meropenem. We will order repeat blood cultures. Thus far, all the cultures are stil l positive for gram-positive cocci, the initials being a vancomycin-resistant enterococcus. The jed ent had an echo on 03/04 which reveals the patient to have no vegetations seen as read by Dr. Best. Will need a transesophageal echocardiogram with persistent bacteremia. We will discuss with Dr. Michael House. Larry Toledo MD cc: [phone] TT: 03/07/2017 15:21:16 Confirmation # [id number] Dictation # [id number] tn
[2017-03-07 21:13] LABS: AMIODARONE 0.8 mcg/mL (1.5-2.5); DESETHYLAMIODARONE <0.1 mcg/mL (1.5-2.5)
--- NOTE | 2017-03-07 23:54 | PN ---
DATE: 03/07/2017 SUBJECTIVE: This patient was seen and evaluated earlier. Discussed with the patient's daughter, who was at bedside. The patient comfortable now. Still p.o. intake remains low. PHYSICAL EXAMINATION: ABDOMEN: Soft. The esophagram reviewed. No obstruction. RECOMMENDATIONS: Continue the PPI, followup of the hemoglobin and hematocrit. No further episodes o f bleeding. Continue the antibiotics as per ID. Surgical followup noted. Thank you very much for allowing us to participate in the care of the patient. Jace Fernandez MD cc: [phone] TT: 03/07/2017 23:53:38 Confirmation # [id number] Dictation # [id number] mn
[2017-03-08] MEDS: Albuterol-Ipratrop 3 mg / 0.5 (3 ml) UD IH SCH ×2 (02:25→07:42)
[2017-03-08 06:19] LABS: ARTERIAL BLOOD GAS HCO3 22.6 mmol/L (21-28); ARTERIAL BLOOD GAS O2 CAPACITY 12.7 mL/dl (16-24); ARTERIAL BLOOD GAS O2 CONTENT 12.4 ML/dl (15-23); ARTERIAL BLOOD GAS PH 7.47 (7.35-7.45); ARTERIAL BLOOD HGB O2 SAT 94.4 % (95.0-98.0); CARBOXYHEMOGLOBIN 2.2 % (0.5-1.5); HHB 2.5 % (0-5)
[2017-03-08 06:40] LABS: ALB/GLOB RATIO 0.7 (1.1-1.8); ALKALINE PHOSPHATASE 224 U/L (38-133); ALT/SGPT 51 U/L (7-56); AST/SGOT 72 U/L (15-39); BILIRUBIN,TOTAL 0.5 mg/dL (0.2-1.3); BLOOD UREA NITROGEN 7 mg/dL (7-21); CARBON DIOXIDE 24 mmol/L (21-33); CHLORIDE 111 mmol/L (98-107); GFR AFRICAN-AMERICAN > 60; GLUCOSE,RANDOM 107 mg/dL (70-110); MAGNESIUM 1.3 mg/dL (1.7-2.2); PHOSPHOROUS 4.3 mg/dL (2.5-4.5); SODIUM 143 mmol/L (132-148); TOTAL PROTEIN 5.2 g/dL (5.8-8.3)
[2017-03-08 06:41] LABS: MEAN CELL VOLUME 88.2 fL (80.0-105.0); MEAN CORPUSCULAR HEMOGLOBIN 29.3 pg (25.0-35.0); MEAN CORPUSCULAR HGB CONC 33.2 g/dl (31.0-37.0); MEAN PLATELET VOLUME 8.7 fl (7.0-11.0); RED CELL DISTRIBUTION WIDTH 19.8 % (11.5-14.5); WHITE BLOOD COUNT 14.5 10^3/ul (4.5-11.0)
[2017-03-08 06:46] LABS: HEMATOCRIT 23.2 % (36.0-48.0)
[2017-03-08 06:50] LABS: CALCIUM 4.4 mg/dL (8.4-10.5); POTASSIUM 2.4 mmol/L (3.6-5.0)
[2017-03-08] MEDS ORDERED: Potassium Chloride 20 mEq ER Tab PO STA (06:56)
[2017-03-08] MEDS ORDERED: Magnesium Sulfate 1 gm in D5W 1 GM/100 ML BAG IVPB ONE ×4 (06:58→17:02)
[2017-03-08] MEDS ORDERED: Potassium Chloride 40 mEq/30 ml LIQ UD PO ONE (07:53)
--- NOTE | 2017-03-08 08:46 | CP.PCM.PN ---
Subjective - Date & Time of Evaluation Date of Evaluation: 03/08/17 Time of Evaluation: 07:00 - Subjective Subjective: General Surgery Progress Note for Dr. Odonnell Patient seen and examined at bedside. No acute events overnight. Patient is tolerating diet well and been using incentive spirometer often. Patient's morning lab showed hemoglobin decrease from 8.6 to 7.7. primary aware and will transfuse 2 units of PRBC. Patient denies fever, chills, nausea, vomiting, diarreah, or any active bleeding. Objective - Vital Signs/Intake and Output Vital Signs (last 24 hours): Temp Pulse Resp BP Pulse Ox 97.8 F 88 20 115/80 95 03/08/17 08:00 03/08/17 08:00 03/08/17 08:00 03/08/17 08:00 03/08/17 08:00 Intake and Output: 03/08/17 03/08/17 06:59 18:59 Intake Total 1350 Output Total 550 Balance 800 - Medications Medications: Current Medications Albuterol/Ipratropium (Duoneb 3 Mg/0.5 Mg (3 Ml) Ud) 3 ml IH Q2H PRN PRN Reason: Shortness of Breath Last Admin: 03/07/17 10:52 Dose: 3 ml Albuterol/Ipratropium (Duoneb 3 Mg/0.5 Mg (3 Ml) Ud) 3 ml IH [id number] [facility] Last Admin: 03/08/17 07:42 Dose: 3 ml Calcium/Vitamin D (Oscal-D 250 Mg-125 Units Tab) 1 tab PO DAILY [facility] Last Admin: 03/07/17 13:00 Dose: 1 tab Heparin Sodium (Porcine) (Heparin) 5,000 units SC Q12 JEAN CARLOS PRN Reason: Protocol Last Admin: 03/07/17 21:35 Dose: 5,000 units Meropenem 1g/NS 100mL IVPB (Meropenem 1g/Ns 100ml Ivpb) 1 gm in 100 mls @ 100 mls/hr IVPB Q12 JEAN CARLOS PRN Reason: Protocol Stop: 03/08/17 22:01 Last Admin: 03/07/17 21:34 Dose: 100 mls/hr Dextrose/Sodium Chloride (Dextrose 5%/0.9% Ns 1000 Ml) 1,000 mls @ 100 mls/hr IV .Q10H [facility] Last Admin: 03/07/17 20:53 Dose: 100 mls/hr Daptomycin 410 mg/ Sodium (Chloride) 100 mls @ 200 mls/hr IV Q24H [facility] Stop: 03/18/17 10:01 Last Admin: 03/07/17 10:59 Dose: 200 mls/hr Potassium Chloride (Potassium Chloride 20 Meq/100 Ml) 20 meq in 100 mls @ 50 mls/hr IVPB Q2H [facility] Stop: 03/08/17 10:59 Last Admin: 03/08/17 07:33 Dose: 50 mls/hr Levothyroxine Sodium (Synthroid) 112 mcg PO DAILY [facility] Last Admin: 03/07/17 09:39 Dose: 112 mcg Lisinopril (Zestril) 10 mg PO DAILY [facility] Last Admin: 03/07/17 09:39 Dose: 10 mg Metoprolol Tartrate (Lopressor) 50 mg PO BID [facility] Last Admin: 03/07/17 17:02 Dose: 50 mg Metoprolol Tartrate (Lopressor) 5 mg IVP Q6H PRN PRN Reason: Heart rate Pantoprazole Sodium (Protonix Inj) 40 mg IVP Q12 [facility] Last Admin: 03/07/17 21:59 Dose: 40 mg - Labs Labs: 03/08/17 06:01 03/08/17 06:01 PT 12.6 Seconds (9.9-11.8) H 03/04/17 05:45 INR 1.17 (0.93-1.08) H 03/04/17 05:45 APTT 41.1 Seconds (23.7-30.8) H 03/04/17 05:45 - Constitutional Appears: Non-toxic, No Acute Distress - Head Exam Head Exam: ATRAUMATIC, NORMAL INSPECTION - Eye Exam Eye Exam: EOMI, Normal appearance - ENT Exam ENT Exam: Mucous Membranes Moist - Respiratory Exam Respiratory Exam: absent: Respiratory Distress - Cardiovascular Exam Cardiovascular Exam: +S1, +S2 Additional comments: Left subclavian catheter clean, dry and intact Right chest dressing clean, dry and intact. Dressing changed at bedside. - GI/Abdominal Exam GI & Abdominal Exam: Soft, Normal Bowel Sounds Additional comments: Abdominal midline incision with some jitendra in place (surgery 02/06/17) clean, dry, no signs of infection - Extremities Exam Extremities Exam: Normal Inspection - Neurological Exam Neurological Exam: Alert, Awake, Oriented x3 - Psychiatric Exam Psychiatric exam: Normal Affect, Normal Mood - Skin Skin Exam: Normal Color, Warm Assessment and Plan - Assessment and Plan (Free Text) Assessment: 66 year old female S/P chemoport removal and subclavian TLC placement POD#2, was found to have bacteremia and melanotic stool s/p recent colon/liver resection at [facility] with hepatic drain Plan: -Pt will follow up with [facility] surgeon for surgical issues related to cancer resection -H/H 7.7 today, will receive 2 units PRBC -Blood culture collected on 03/05 positive for Gram positive cocci -Endoscopy once pt stabilized per GI team -Medical management per ICU/Primary team -Will D/W attending Dr. Odonnell
[2017-03-08] MEDS: Calcium-Vit D 250 mg-125 Units Tab UD PO SCH (09:01)
[2017-03-08] MEDS: Levothyroxine 112 MCG TAB PO SCH (09:02)
[2017-03-08] MEDS: Dextrose 5%/0.9% NS 1,000 ML IV SCH (09:03)
[2017-03-08] MEDS: Meropenem 1g/NS 100mL IVPB 1 GM/100 ML PIGGYBACK IVPB SCH ×2 (09:06→21:16)
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
--- NOTE | 2017-03-08 10:11 | RAD ---
HISTORY: f/u COMPARISON: 03/07/2017 FINDINGS: LUNGS: Small bilateral pleural effusion, right greater than left. Possible developing right basilar infiltrate. Followup advised. PLEURA: As above CARDIOVASCULAR: Left subclavian central venous catheter unchanged. Normal heart size. OSSEOUS STRUCTURES: No significant abnormalities. VISUALIZED UPPER ABDOMEN: Normal. OTHER FINDINGS: None. IMPRESSION: Small bilateral pleural effusion, right greater left. Possible developing right basilar infiltrate. Followup advised.
--- NOTE | 2017-03-08 10:12 | PN ---
DATE: 03/08/2017 I saw her in the intensive care unit. She is very weak. She is on oxygen. She does not want to go to subacute rehab anymore. She does want to go to hospice, although I think that is where she should be. She just wants to go to her sister's house, I believe, or a family member's house. The problem is she has so many issues, I do not know if she is going to make it. She recently had colon cancer surgery done at [facility]. She had acute respiratory failure with intubation. Now, she is extubated. S he had an NSTEMI. She had SIRS, sepsis, anemia, low calcium, low magnesium, low potassium and she is going to be transfused today 2 units of packed red blood cells. PHYSICAL EXAMINATION: VITAL SIGNS: Temp 97.8, 88 pulse, 115/80 blood pressure, 20 respiratory rate, 95% O2 sat on room air . HEENT: Head is atraumatic, normocephalic. Mouth is moist. HEART: Regular rate. LUNGS: Decreased breath sounds, poor inspiration. ABDOMEN: Soft, nontender. Decreased bowel sounds. EXTREMITIES: No edema. She is weak and thin and frail, losing weight. She is currently on daptomycin, dextrose, DuoNeb, heparin, Lopressor, Merrem IV, Os-Elmer replacement, potassium replacement, Protonix, Synthroid, Zestril. She is going to get 2 units of packed red blood cells today. Her sodium is 143, potassium is 2.4. She is getting potassium. BUN 7, creatinine 0.6, GFR is greate r than 60, calcium is 4.4, getting replaced, magnesium is 1.3, getting replaced, AST is 72, ALT is 51 , alk phos 224, total protein is 5.2. White count is 14.5, came down from 23, which is great. Hemog lobin also dropped to 7.7. She is getting 2 units of packed red blood cells. Platelets are 176. She is in a lot of trouble. We are going to do the best we can to keep her as comfortable and as org anized and back to normal as we can with multiple replacements. Wily Barton DO cc: [id number] TT: 03/08/2017 09:28:29 Confirmation # [id number] Dictation # [id number] en
--- NOTE | 2017-03-08 10:12 | PN ---
DATE: 03/08/2017 The patient is in bed, in no acute distress, nontoxic. The patient seen earlier this morning. She h ad an uneventful night. PHYSICAL EXAMINATION: VITAL SIGNS: Temperature is 98, blood pressure is 115/80, respiratory rate of 16. HEENT: Unremarkable. NECK: Supple. LUNGS: Have decreased breath sounds. HEART: Normal S1, S2. ABDOMEN: Soft, nontender. LABORATORY EXAMINATION: Reveals the white count is down to 14,500, hemoglobin of 7, platelets of 176 . Chemistries reveals the BUN of 7, creatinine of 0.6. Urinalysis is noted. Microbiology: There i s yeast in the urine. The repeat blood cultures are positive and with gram-positive cocci in both fernando ttles. Review of orders reveals the patient to be on daptomycin. Repeat blood cultures from yesterday are p ending. ASSESSMENT AND PLAN: A 66-year-old female seen earlier this morning in the ICU with severe sepsis, s tatus post ventilatory dependent respiratory failure, now extubated, comfortable with vancomycin resi stant Enterococcus bacteremia and with a possible port infection, must rule out endocarditis, status post Port-A-Cath removal, post procedure day 3. The patient also with colitis and enteritis and stag e IV colon cancer and status post resection at [facility] on 02/08 with recurrent pleural effusions and st atus post PleurX catheter and placement. Currently on daptomycin and meropenem. Repeat blood cultur es are positive still and patient will need a transesophageal echocardiogram. Awaiting for blood cul tures from yesterday and will follow with you. Larry Toledo MD cc: [phone] TT: 03/08/2017 08:34:59 Confirmation # [id number] Dictation # [id number] en
--- NOTE | 2017-03-08 10:32 | PN ---
DATE: 03/08/2017 The patient is in bed, very weak without shortness of breath. PHYSICAL EXAMINATION: VITAL SIGNS: Blood pressure is 156/94, the heart rate is tachycardic at 110. NECK: Negative JVD. LUNGS: Without rales. HEART: Revealed S1, S2. EXTREMITIES: Without change. LABORATORIES: Hemoglobin is 7.7, white count is 14.5, potassium is 2.4. The albumin is 2.1 with a c alcium of 4.4 and a glucose of 164. IMPRESSION: 1. Bacteremia. 2. Anemia. 3. Status post colon surgery for cancer at [facility]. 4. Marked anemia. 5. Marked weakness. PLAN: Given these findings, the patient's comorbidities would make a CHIP too high risk. In addition , if the patient had endocarditis, the patient will need prolonged IV antibiotics. The patient is in no condition for any kind of surgery on her heart valves. In addition, I would avoid a CHIP and its associated risks given the patient's weakness and marked comorbidities. Willie House MD cc: [phone] TT: 03/08/2017 10:32:17 Confirmation # [id number] Dictation # [id number] saira
--- NOTE | 2017-03-08 10:52 | PN ---
DATE: 03/08/2017 SUBJECTIVE: I had the opportunity to evaluate this patient in the CCU. The patient remains comforta ble, in no acute distress. There are no significant changes since seen by Dr. Ibarra yesterday. I soler ve reviewed the case with the research analyst emulsion operator. Vital signs remain stable. PHYSICAL EXAMINATION: VITAL SIGNS: The patient is afebrile with a pulse ox of 96%. Blood pressure is elevated 160/70 HEENT: Normocephalic, atraumatic. NECK: Supple, no JVD, no lymphadenopathy. CARDIOVASCULAR: Irregular rhythm with a normal S1 and S2. No gallop is appreciated. A soft systoli c ejection murmur. CHEST: Essentially clear to percussion and auscultations with some slight decreased breath sounds at both bases. GASTROINTESTINAL: Abdomen is soft. Bowel sounds normoactive without mass, guarding, rebound or orga nomegaly. EXTREMITIES: Reveal no clubbing, cyanosis or edema. SKIN: Shows no rash or excoriation. NEUROLOGIC: Limited at this time. LABORATORY STUDIES: Chest x-ray done yesterday shows clear lung victoria in the upper airways, but the re are some small atelectatic changes at both bases. No acute infiltrates or congestive heart failur e is noted. ASSESSMENT: 1. Status post respiratory failure. 2. Sepsis syndrome. 3. Atelectasis. 4. Recurrent atrial fibrillation. 5. Hypertension. PLAN: Continue close evaluation. Followup arterial blood gas has been discussed with staff. I will continue to monitor closely and decide on the need for further intervention. We will attempt to dec falguni on the appropriate method of oxygenation and ventilation intermittently as things change. We tiera l be happy to follow her closely. Luis Hunter MD cc: [id number] TT: 03/08/2017 10:51:29 Confirmation # [id number] Dictation # [id number] tn
[2017-03-08] MEDS ORDERED: Metoprolol 1 mg/ml Inj IVP ONE ×3 (10:59→12:07)
--- NOTE | 2017-03-08 11:28 | CP.PCM.PN ---
<Eli Shaikh - Last Filed: 03/08/17 11:22> Subjective - Date & Time of Evaluation Date of Evaluation: 03/08/17 Time of Evaluation: 11:22 - Subjective Subjective: ICU Progress Note Patient seen and examined at bedside. There were no acute overnight events. This am she felt well. Denies any pain. On re-examination this morning, patient appears anxious and became febrile, tachycardic and tachypneic. Patient reports feeling SOB, but denies CP, n/v/d, numbness/tingling. Elizabeth Hernandez saw her this am and patient reports she wants to be DNR/DNI. I confirmed this request when I spoke to the patient. Objective - Vital Signs/Intake and Output Vital Signs (last 24 hours): Temp Pulse Resp BP Pulse Ox 97.8 F 122 H 30 H 117/66 84 L 03/08/17 08:00 03/08/17 11:11 03/08/17 08:04 03/08/17 11:11 03/08/17 08:01 Intake and Output: 03/08/17 03/08/17 06:59 18:59 Intake Total 1350 Output Total 550 Balance 800 - Medications Medications: Current Medications Albuterol/Ipratropium (Duoneb 3 Mg/0.5 Mg (3 Ml) Ud) 3 ml IH Q2H PRN PRN Reason: Shortness of Breath Last Admin: 03/07/17 10:52 Dose: 3 ml Calcium/Vitamin D (Oscal-D 250 Mg-125 Units Tab) 1 tab PO DAILY [facility] Last Admin: 03/08/17 09:01 Dose: 1 tab Heparin Sodium (Porcine) (Heparin) 5,000 units SC Q12 [facility] PRN Reason: Protocol Last Admin: 03/08/17 09:07 Dose: 5,000 units Meropenem 1g/NS 100mL IVPB (Meropenem 1g/Ns 100ml Ivpb) 1 gm in 100 mls @ 100 mls/hr IVPB Q12 [facility] PRN Reason: Protocol Stop: 03/08/17 22:01 Last Admin: 03/08/17 09:06 Dose: 100 mls/hr Dextrose/Sodium Chloride (Dextrose 5%/0.9% Ns 1000 Ml) 1,000 mls @ 100 mls/hr IV .Q10H [facility] Last Admin: 03/08/17 09:03 Dose: 100 mls/hr Daptomycin 410 mg/ Sodium (Chloride) 100 mls @ 200 mls/hr IV Q24H [facility] Stop: 03/18/17 10:01 Last Admin: 03/08/17 09:26 Dose: 200 mls/hr Potassium Chloride (Potassium Chloride 20 Meq/100 Ml) 20 meq in 100 mls @ 50 mls/hr IVPB Q2H [facility] Stop: 03/08/17 15:59 Potassium Chloride (Potassium Chloride 20 Meq/100 Ml) 20 meq in 100 mls @ 50 mls/hr IVPB ONCE ONE Stop: 03/08/17 11:47 Last Admin: 03/08/17 10:47 Dose: 50 mls/hr Calcium Gluconate 1,000 mg/ (Sodium Chloride) 110 mls @ 110 mls/hr IVPB BID [facility] Levothyroxine Sodium (Synthroid) 112 mcg PO DAILY [facility] Last Admin: 03/08/17 09:02 Dose: 112 mcg Lisinopril (Zestril) 10 mg PO DAILY [facility] Last Admin: 03/08/17 09:07 Dose: 10 mg Metoprolol Tartrate (Lopressor) 50 mg PO BID [facility] Last Admin: 03/08/17 09:07 Dose: 50 mg Metoprolol Tartrate (Lopressor) 5 mg IVP Q6H PRN PRN Reason: Heart rate Pantoprazole Sodium (Protonix Inj) 40 mg IVP Q12 [facility] Last Admin: 03/08/17 09:08 Dose: 40 mg - Labs Labs: 03/08/17 06:01 03/08/17 06:01 PT 12.6 Seconds (9.9-11.8) H 03/04/17 05:45 INR 1.17 (0.93-1.08) H 03/04/17 05:45 APTT 41.1 Seconds (23.7-30.8) H 03/04/17 05:45 - Head Exam Head Exam: ATRAUMATIC, NORMAL INSPECTION, NORMOCEPHALIC - Eye Exam Eye Exam: Normal appearance, PERRL Pupil Exam: NORMAL ACCOMODATION, PERRL - ENT Exam ENT Exam: Mucous Membranes Moist - Respiratory Exam Respiratory Exam: Clear to Ausculation Bilateral, NORMAL BREATHING PATTERN. absent: Rales, Rhonchi, Wheezes - Cardiovascular Exam Cardiovascular Exam: Tachycardia, REGULAR RHYTHM, +S1, +S2. absent: Gallop, Rubs, Murmur - GI/Abdominal Exam GI & Abdominal Exam: Soft, Normal Bowel Sounds. absent: Rigid, Tenderness, Mass , Rebound Additional comments: midline incision with few jitendra in place- clean and dry - Extremities Exam Extremities Exam: Full ROM, Normal Inspection. absent: Calf Tenderness, Pedal Edema - Neurological Exam Neurological Exam: Alert, Awake, CN II-XII Intact, Oriented x3 - Psychiatric Exam Psychiatric exam: Normal Affect, Normal Mood - Skin Skin Exam: Dry, Normal Color, Warm Assessment and Plan - Assessment and Plan (Free Text) Assessment: This is a 66Y F with PMG of Colon cancer stage IV s/p chemo and s/p resection on February 08 at [facility]. Patient admitted for sepsis complicated by A.fib with RVR. She had respiratory failure and was intubated then extubated next day. Patient noted to have VRE bacteremia most likely secondary to chronic port, which has been removed. Patient noted to be tachycardic, febrile and tachyneic this am. She requested to be DNR/DNI. Plan: Neuro: Patient A&O x 3 Febrile at this time- maintain normothermia Ofirmev prn fever Ativan given once for anxiety CV: A. fib with RVR Continue Lopressor, Lisinopril Lopressor IV prn Consider CHIP echo Cardio consulted- recs appreciated Pulm: Tachypneic- placed on BIPAP Maintain SpO2>90% Duoneb prn GI: Pt not eating well Possible malabsorption for hypokalemia, hypocalcemia and hypomagnesia Continue to monitor intake On D5/NS@100 Neprho: Persistent hypocalcemia and hypomagnesia despite supplementation Hypokalemic today as well Will aggressively replace electrolytes. Will repeat CMP at 4pm PTH pending, vit D low PO Calcium/Vit D Maintain euvolemia Heme: Hgb decreased to 7.7- no overt signs of bleeding 2U PRBC ordered by primary Continue to monitor ID: Febrile this am, Leukocytosis Continue Daptomycin, Merrem ID consulted-recs appreciated Blood culture + x 4- Will repeat BC Endo: Continue Synthroid Maintain euglycemia GI ppx: PTX DVT ppx: Heparin SC Dispo: Patient DNR/DNI at this time. Palliative consulted. Patient does not want to go back to rehab and would like to go home. Consider her for home hospice care. Case seen, discussed and reviewed with attending. Farida Shaikh PGY1 <Rukhsana BROWN,Vega H - Last Filed: 03/08/17 15:04> Objective - Vital Signs/Intake and Output Vital Signs (last 24 hours): Temp Pulse Resp BP Pulse Ox 102.6 F H 102 H 27 H 152/62 H 98 03/08/17 11:25 03/08/17 14:00 03/08/17 13:00 03/08/17 14:00 03/08/17 13:00 Intake and Output: 03/08/17 03/08/17 06:59 18:59 Intake Total 1350 Output Total 550 Balance 800 - Medications Medications: Current Medications Albuterol/Ipratropium (Duoneb 3 Mg/0.5 Mg (3 Ml) Ud) 3 ml IH Q2H PRN PRN Reason: Shortness of Breath Last Admin: 03/07/17 10:52 Dose: 3 ml Calcium/Vitamin D (Oscal-D 250 Mg-125 Units Tab) 1 tab PO DAILY [facility] Last Admin: 03/08/17 09:01 Dose: 1 tab Heparin Sodium (Porcine) (Heparin) 5,000 units SC Q12 [facility] PRN Reason: Protocol Last Admin: 03/08/17 09:07 Dose: 5,000 units Meropenem 1g/NS 100mL IVPB (Meropenem 1g/Ns 100ml Ivpb) 1 gm in 100 mls @ 100 mls/hr IVPB Q12 [facility] PRN Reason: Protocol Stop: 03/08/17 22:01 Last Admin: 03/08/17 09:06 Dose: 100 mls/hr Dextrose/Sodium Chloride (Dextrose 5%/0.9% Ns 1000 Ml) 1,000 mls @ 100 mls/hr IV .Q10H [facility] Last Admin: 03/08/17 09:03 Dose: 100 mls/hr Daptomycin 410 mg/ Sodium (Chloride) 100 mls @ 200 mls/hr IV Q24H [facility] Stop: 03/18/17 10:01 Last Admin: 03/08/17 09:26 Dose: 200 mls/hr Potassium Chloride (Potassium Chloride 20 Meq/100 Ml) 20 meq in 100 mls @ 50 mls/hr IVPB Q2H [facility] Stop: 03/08/17 15:59 Calcium Gluconate 1,000 mg/ (Sodium Chloride) 110 mls @ 110 mls/hr IVPB BID [facility] Acetaminophen (Ofirmev) 1,000 mg in 100 mls @ 400 mls/hr IVPB Q6H PRN PRN Reason: Fever >100.4 F Stop: 03/10/17 11:26 Last Admin: 03/08/17 11:32 Dose: 400 mls/hr Levothyroxine Sodium (Synthroid) 112 mcg PO DAILY [facility] Last Admin: 03/08/17 09:02 Dose: 112 mcg Lisinopril (Zestril) 10 mg PO DAILY [facility] Last Admin: 03/08/17 09:07 Dose: 10 mg Metoprolol Tartrate (Lopressor) 50 mg PO BID [facility] Last Admin: 03/08/17 09:07 Dose: 50 mg Metoprolol Tartrate (Lopressor) 5 mg IVP Q6H PRN PRN Reason: Heart rate Last Admin: 03/08/17 12:10 Dose: 5 mg Pantoprazole Sodium (Protonix Inj) 40 mg IVP Q12 [facility] Last Admin: 03/08/17 09:08 Dose: 40 mg - Labs Labs: 03/08/17 06:01 03/08/17 06:01 PT 12.6 Seconds (9.9-11.8) H 03/04/17 05:45 INR 1.17 (0.93-1.08) H 03/04/17 05:45 APTT 41.1 Seconds (23.7-30.8) H 03/04/17 05:45 Attending/Attestation - Attestation I have personally seen and examined this patient.: Yes I have fully participated in the care of the patient.: Yes I have reviewed all pertinent clinical information, including history, physical exam and plan: Yes Notes (Text): 03/08/17 15:00 66 y/o F w/ Colon ca w/ Worsening overall prognosis Bactermia w/ VRE. PORT removed. Repeat CX pending. On Daptomycin and ID following. No further fevers or WBC elevation. ECHO CHIP not scheduled per cardiology Post surgical changes w/ surgical team following. Liver/ Bile drain removed. Pleural effusion noted, w/ mild PVC Lasix given. Hypo Mag, K, CA- Unclear if there is poor absorbtion through the GUT. I.V formulations of K, MG , CA to be given throughout the day. Pt is currently in resp distress. Placed on BIPAP for comfort. Palliative care d/w the patient and is now DNR/DNI. dvt p SCD PPI
[2017-03-08] MEDS: Metoprolol 1 mg/ml Inj IVP PRN (12:10)
--- NOTE | 2017-03-08 15:10 | PN ---
DATE: 03/08/2017 SUBJECTIVE: Seen and examined at the bedside earlier today. The patient was complaining of shiverin g. Denies any shortness of breath or chest pain. The patient had urinary retention and the Castro ca theter was just changed; draining clear yellow urine. No reports of any melena or bright red blood, but the patient did report loose stool. VITAL SIGNS: Temperature is 97.8, then around 11:00 she was 102.6. Blood pressure was 156/94, pulse rate was 115, respirations 18, 96 on nasal cannula. LABORATORY DATA: WBC is 14.5, H and H are 7.7 and 23.2, platelets are 176. Her sodium is 143, K is 2.4, BUN is 7, creatinine is 0.6. The total bilirubin is 0.5, AST 72, ALT 51, alk phos is 224. PHYSICAL EXAMINATION: HEENT: Sclerae are anicteric. NECK: Supple. CARDIAC: S1, S2. LUNGS: With decreased breath sounds. No rales or wheeze. ABDOMEN: With bowel sounds. Soft, not tender. She went for chest x-ray this morning and showed small bilateral pleural effusions, right greater blake n left, possible developing right bibasilar infiltrate. ASSESSMENT: This is a 66-year-old female with a past medical history of colon cancer, stage IV, stat us post chemotherapy and resection at [facility] last month. Came with sepsis, atrial fibrillation with rapid ventricular response. The patient had respiratory failure, was intubated and status post extubation next day; positive vancomycin-resistant Enterococci , likely coming from her port which has now been removed. The patient now is shivering, she has a fe alejandra. She also came with complaints of melena. No further bleeding. Hypokalemia, hypocalcemia. PLAN: She is continued on IV antibiotics, meropenem. Continue PPI. She is getting electrolyte repl acements. She is on daptomycin as well for IV antibiotics. Receiving calcium replacement. Continue her diet as tolerated. The patient did complain of some problems with swallowing; esophagogram was negative. She is going to be getting a blood transfusion. Seen and examined with Dr. Fernandez. Vanessa ROTHMAN cc: [id number] TT: 03/08/2017 15:09:35 Confirmation # [id number] Dictation # [id number] mn
[2017-03-08 16:53] LABS: ALB/GLOB RATIO 0.6 (1.1-1.8); ALKALINE PHOSPHATASE 236 U/L (38-133); ALT/SGPT 53 U/L (7-56); AST/SGOT 78 U/L (15-39); BILIRUBIN,TOTAL 0.8 mg/dL (0.2-1.3); BLOOD UREA NITROGEN 7 mg/dL (7-21); CARBON DIOXIDE 26 mmol/L (21-33); CHLORIDE 108 mmol/L (98-107); GFR AFRICAN-AMERICAN > 60; GLUCOSE,RANDOM 88 mg/dL (70-110); MAGNESIUM 1.6 mg/dL (1.7-2.2); PHOSPHOROUS 4.1 mg/dL (2.5-4.5); POTASSIUM 3.1 mmol/L (3.6-5.0); SODIUM 141 mmol/L (132-148)
[2017-03-08 16:55] LABS: CALCIUM 5.2 mg/dL (8.4-10.5)
[2017-03-08 16:58] LABS: MEAN CELL VOLUME 87.5 fL (80.0-105.0); MEAN CORPUSCULAR HEMOGLOBIN 28.6 pg (25.0-35.0); MEAN CORPUSCULAR HGB CONC 32.7 g/dl (31.0-37.0); MEAN PLATELET VOLUME 9.2 fl (7.0-11.0); RED CELL DISTRIBUTION WIDTH 19.6 % (11.5-14.5); WHITE BLOOD COUNT 14.4 10^3/ul (4.5-11.0)
[2017-03-08 17:03] LABS: HEMATOCRIT 22.3 % (36.0-48.0)
--- NOTE | 2017-03-08 20:56 | CP.PCM.PCO ---
Physician Communication Note - Physician Communication Note Physician Communication Note: Port Lumen c/s Gr+cocci/clinically improving
[2017-03-09] MEDS: Metoprolol 1 mg/ml Inj IVP PRN ×2 (00:35→07:00)
[2017-03-09] MEDS ORDERED: Metoprolol 1 mg/ml Inj IVP ONE (02:26)
[2017-03-09] MEDS: Dextrose 5%/0.9% NS 1,000 ML IV SCH ×4 (03:00→23:00)
[2017-03-09 05:28] LABS: ARTERIAL BLOOD GAS HCO3 27.8 mmol/L (21-28); ARTERIAL BLOOD GAS O2 CAPACITY 12.7 mL/dl (16-24); ARTERIAL BLOOD GAS O2 CONTENT 12.3 ML/dl (15-23); ARTERIAL BLOOD GAS PH 7.52 (7.35-7.45); ARTERIAL BLOOD HGB O2 SAT 93.2 % (95.0-98.0); CARBOXYHEMOGLOBIN 2.5 % (0.5-1.5); HHB 2.9 % (0-5); METHEMOGLOBIN 1.4 % (0.0-3.0)
[2017-03-09 06:18] LABS: HEMATOCRIT 29.7 % (36.0-48.0); MEAN CELL VOLUME 87.1 fL (80.0-105.0); MEAN CORPUSCULAR HEMOGLOBIN 28.7 pg (25.0-35.0); MEAN PLATELET VOLUME 9.5 fl (7.0-11.0)
[2017-03-09 06:35] LABS: ALB/GLOB RATIO 0.7 (1.1-1.8); ALKALINE PHOSPHATASE 267 U/L (38-133); ALT/SGPT 56 U/L (7-56); AST/SGOT 71 U/L (15-39); BILIRUBIN,TOTAL 1.3 mg/dL (0.2-1.3); BLOOD UREA NITROGEN 9 mg/dL (7-21); CARBON DIOXIDE 26 mmol/L (21-33); CHLORIDE 107 mmol/L (98-107); GFR AFRICAN-AMERICAN > 60; GLUCOSE,RANDOM 84 mg/dL (70-110); MAGNESIUM 1.7 mg/dL (1.7-2.2); PHOSPHOROUS 4.4 mg/dL (2.5-4.5); POTASSIUM 3.7 mmol/L (3.6-5.0); SODIUM 141 mmol/L (132-148); TOTAL PROTEIN 5.8 g/dL (5.8-8.3)
[2017-03-09 06:54] LABS: CALCIUM 5.2 mg/dL (8.4-10.5)
--- NOTE | 2017-03-09 07:44 | PN ---
DATE: 03/08/2017 ADDENDUM This is an addendum to the GI progress report dictated by Vanessa Garcia APN. The patient did have lisbet p in blood count, received is a unit of transfusion. No obvious bleeding, melena or bright red blood per rectum. Still p.o. intake remains poor. PHYSICAL EXAMINATION: ABDOMEN: Soft. There is no tenderness. RECOMMENDATIONS: Would recommend: 1. To continue the followup of the hemoglobin and hematocrit. 2. PPI. 3. We will consider upper GI endoscopy based on the clinical course. Continue the antibiotics as pe r ID. Jace Fernandez MD cc: [id number] TT: 03/09/2017 07:43:26 Confirmation # [id number] Dictation # [id number] tn
--- NOTE | 2017-03-09 08:38 | CP.PCM.PN ---
<Flakito Odronez - Last Filed: 03/09/17 08:38> Subjective - Date & Time of Evaluation Date of Evaluation: 03/09/17 Time of Evaluation: 08:36 - Subjective Subjective: Surgery: Dr. Odonnell Patient remainsin ICU. Patient requiring BiPap over night. Patient lethargic but wakes and responds appropriately to questioning. Per nursing, patient made DNR/DNI yesterday. Objective - Vital Signs/Intake and Output Vital Signs (last 24 hours): Temp Pulse Resp BP Pulse Ox 98.8 F 96 H 38 H 198/102 H 100 03/09/17 07:56 03/09/17 07:09 03/09/17 07:09 03/09/17 07:09 03/09/17 07:09 Intake and Output: 03/09/17 03/09/17 06:59 18:59 Intake Total 375 Balance 375 - Medications Medications: Current Medications Albuterol/Ipratropium (Duoneb 3 Mg/0.5 Mg (3 Ml) Ud) 3 ml IH Q2H PRN PRN Reason: Shortness of Breath Last Admin: 03/07/17 10:52 Dose: 3 ml Calcium/Vitamin D (Oscal-D 250 Mg-125 Units Tab) 1 tab PO DAILY [facility] Last Admin: 03/08/17 09:01 Dose: 1 tab Heparin Sodium (Porcine) (Heparin) 5,000 units SC Q12 [facility] PRN Reason: Protocol Last Admin: 03/08/17 21:17 Dose: 5,000 units Dextrose/Sodium Chloride (Dextrose 5%/0.9% Ns 1000 Ml) 1,000 mls @ 100 mls/hr IV .Q10H [facility] Last Admin: 03/09/17 03:00 Dose: 100 mls/hr Daptomycin 410 mg/ Sodium (Chloride) 100 mls @ 200 mls/hr IV Q24H [facility] Stop: 03/18/17 10:01 Last Admin: 03/08/17 09:26 Dose: 200 mls/hr Calcium Gluconate 1,000 mg/ (Sodium Chloride) 110 mls @ 110 mls/hr IVPB BID [facility] Last Admin: 03/08/17 17:13 Dose: 110 mls/hr Acetaminophen (Ofirmev) 1,000 mg in 100 mls @ 400 mls/hr IVPB Q6H PRN PRN Reason: Fever >100.4 F Stop: 03/10/17 11:26 Last Admin: 03/09/17 00:44 Dose: 400 mls/hr Levothyroxine Sodium (Synthroid) 112 mcg PO DAILY [facility] Last Admin: 03/08/17 09:02 Dose: 112 mcg Lisinopril (Zestril) 10 mg PO DAILY [facility] Last Admin: 03/08/17 09:07 Dose: 10 mg Metoprolol Tartrate (Lopressor) 50 mg PO BID [facility] Last Admin: 03/08/17 18:12 Dose: Not Given Metoprolol Tartrate (Lopressor) 5 mg IVP Q6H PRN PRN Reason: Heart rate Last Admin: 03/09/17 07:00 Dose: 5 mg Pantoprazole Sodium (Protonix Inj) 40 mg IVP Q12 [facility] Last Admin: 03/08/17 22:06 Dose: 40 mg - Labs Labs: 03/09/17 06:13 03/09/17 06:13 PT 12.6 Seconds (9.9-11.8) H 03/04/17 05:45 INR 1.17 (0.93-1.08) H 03/04/17 05:45 APTT 41.1 Seconds (23.7-30.8) H 03/04/17 05:45 - Constitutional Appears: Cachectic, Chronically Ill - Head Exam Head Exam: ATRAUMATIC, NORMOCEPHALIC - Eye Exam Eye Exam: EOMI - ENT Exam ENT Exam: Mucous Membranes Dry - Respiratory Exam Respiratory Exam: Respiratory Distress (on BiPap ) Additional comments: Right upper dressing dressing CDI, TLC appears clean on Left - Cardiovascular Exam Cardiovascular Exam: Tachycardia, REGULAR RHYTHM - Neurological Exam Neurological Exam: Alert, Awake - Skin Skin Exam: Dry, Warm Assessment and Plan - Assessment and Plan (Free Text) Assessment: 66 year old female w/ bacteremia S/P chemoport removal and subclavian TLC placement POD#3 Plan: -patient prognosis is guarded -cont abx -no further surgical intervention at this time -Medical management per ICU/Primary team -will cont. to follow -Will D/W attending Dr. Blas Soares PGY1 <Naren Odonnell - Last Filed: 03/10/17 09:34> Objective - Vital Signs/Intake and Output Vital Signs (last 24 hours): Temp Pulse Resp BP Pulse Ox 100.8 F H 92 H 36 H 140/78 100 03/10/17 04:00 03/10/17 09:13 03/10/17 06:00 03/10/17 09:13 03/09/17 22:00 Intake and Output: 03/10/17 03/10/17 06:59 18:59 Intake Total 1200 Output Total 900 Balance 300 - Medications Medications: Current Medications Albuterol/Ipratropium (Duoneb 3 Mg/0.5 Mg (3 Ml) Ud) 3 ml IH Q2H PRN PRN Reason: Shortness of Breath Last Admin: 03/07/17 10:52 Dose: 3 ml Albuterol/Ipratropium (Duoneb 3 Mg/0.5 Mg (3 Ml) Ud) 3 ml IH TID [facility] Last Admin: 03/10/17 07:20 Dose: 3 ml Calcium/Vitamin D (Oscal-D 250 Mg-125 Units Tab) 1 tab PO DAILY [facility] Last Admin: 03/10/17 09:14 Dose: 1 tab Folic Acid (Folic Acid) 1 mg PO DAILY [facility] Last Admin: 03/10/17 09:22 Dose: Not Given Heparin Sodium (Porcine) (Heparin) 5,000 units SC Q12 [facility] PRN Reason: Protocol Last Admin: 03/09/17 22:28 Dose: 5,000 units Dextrose/Sodium Chloride (Dextrose 5%/0.9% Ns 1000 Ml) 1,000 mls @ 100 mls/hr IV .Q10H [facility] Last Admin: 03/09/17 23:00 Dose: 100 mls/hr Daptomycin 410 mg/ Sodium (Chloride) 100 mls @ 200 mls/hr IV Q24H [facility] Stop: 03/18/17 10:01 Last Admin: 03/10/17 09:12 Dose: 200 mls/hr Calcium Gluconate 1,000 mg/ (Sodium Chloride) 110 mls @ 110 mls/hr IVPB BID [facility] Last Admin: 03/10/17 09:19 Dose: 110 mls/hr Acetaminophen (Ofirmev) 1,000 mg in 100 mls @ 400 mls/hr IVPB Q6H PRN PRN Reason: Fever >100.4 F Stop: 03/10/17 11:26 Last Admin: 03/10/17 03:20 Dose: 400 mls/hr Potassium Chloride (Potassium Chloride 20 Meq/100 Ml) 20 meq in 100 mls @ 50 mls/hr IVPB Q2H [facility] Stop: 03/10/17 10:44 Last Admin: 03/10/17 09:21 Dose: 50 mls/hr Folic Acid 1 mg/ Sodium (Chloride) 50.2 mls @ 200 mls/hr IV DAILY [facility] Last Admin: 03/10/17 09:11 Dose: 200 mls/hr Ceftriaxone Sodium (Rocephin 2 Gm Ivpb) 2 gm in 100 mls @ 100 mls/hr IVPB Q12H [facility] PRN Reason: Protocol Stop: 04/07/17 09:31 Levothyroxine Sodium (Synthroid) 112 mcg PO DAILY [facility] Last Admin: 03/10/17 09:13 Dose: 112 mcg Lisinopril (Zestril) 10 mg PO DAILY [facility] Last Admin: 03/10/17 09:13 Dose: 10 mg Metoprolol Tartrate (Lopressor) 50 mg PO BID [facility] Last Admin: 03/10/17 09:11 Dose: 50 mg Metoprolol Tartrate (Lopressor) 5 mg IVP Q6H PRN PRN Reason: Heart rate Last Admin: 03/10/17 03:17 Dose: 5 mg Pantoprazole Sodium (Protonix Inj) 40 mg IVP Q12 [facility] Last Admin: 03/10/17 09:22 Dose: 40 mg - Labs Labs: 03/10/17 05:20 03/10/17 05:20 PT 12.6 Seconds (9.9-11.8) H 03/04/17 05:45 INR 1.17 (0.93-1.08) H 03/04/17 05:45 APTT 41.1 Seconds (23.7-30.8) H 03/04/17 05:45 Assessment and Plan - Assessment and Plan (Free Text) Assessment: Resistant bacteremia(VRE)/Significant fluid overload Patient had Stage IV Colon Ca(Liver Met)Removed-?Clear of Ca now PAC grew VRE in the lumen c/s Prognosis worsening-On BIPAP-family aware Broderick Partida MD FACS
--- NOTE | 2017-03-09 09:11 | PN ---
DATE: 03/09/2017 SUBJECTIVE: The patient is resting in bed with BiPAP very comfortable and no obvious respiratory dis tress. O2 saturation is 100%. No complaints of chest pain, abdominal pain. No nausea, vomiting, no diarrhea. The patient is still in isolation for VRE. PHYSICAL EXAMINATION: VITAL SIGNS: Note that her temperature is 98.8. Her pulse is 96. Respirations are 33 and BP is 198 /102. O2 saturation is 100%. HEENT: Head is atraumatic, normocephalic. Eyes reactive to light. Ears, nose and throat seemed to be within normal limits. NECK: Supple. No JVD, no thyroid enlargement, no lymph nodes. CARDIOVASCULAR: Heart has a regular rate and rhythm. Normal S1, S2. LUNGS: Reveal decreased breath sounds at the bases. ABDOMEN: Soft. Decreased bowel sounds. GENITALIA AND RECTAL: Deferred. MUSCULOSKELETAL: No joint deformities. EXTREMITIES: Reveal no significant lower extremity edema. NEUROLOGIC: She seemed to be grossly intact. LABORATORY DATA: The patient's white count is 11.0. Hemoglobin is 9.8, hematocrit 29.7 with platele ts of 98,000. Her arterial blood gas reveals a pH of 7.52, pCO2 of 34, pO2 of 72. Her sodium is 141 , potassium 3.7, chloride 107, CO2 of 26 with a BUN of 9, creatinine 0.6 and a glucose of 84. IMPRESSION: This patient has colon cancer stage IV and is post-chemotherapy. She has sepsis with va ncomycin-resistant enterococcus and respiratory failure with bilateral pleural effusions and possible lower lobe pneumonia. The patient has atrial fibrillation as well. Note that the patient is a DNR/ DNI. PLAN: We will continue with the BiPAP for respiratory support with O2. We will continue with [facility] pulmonary toilet. The patient is getting calcium gluconate to correct hypocalcemia as well as D uoNeb for bronchodilator. She is on subQ heparin and is getting her Synthroid, Protonix and is on he r Lopressor as well. We will continue to treat aggressively along with the other consultants and the primary care doctor. Alonso Caruso MD cc: [id number] TT: 03/09/2017 09:10:31 Confirmation # [id number] Dictation # [id number] tn
--- NOTE | 2017-03-09 09:32 | PN ---
DATE: 03/09/2017 The patient was seen and evaluated in intensive care unit on BiPAP. She is lethargic, but responds t o questions. The patient was made DNR/DNI yesterday. PHYSICAL EXAMINATION: VITAL SIGNS: Temperature is 98.8, pulse 96, respirations 30, blood pressure is 140/100 and pulse oxi metry currently is 95 on BiPAP. HEAD, EARS, NOSE AND THROAT: Within normal limits. NECK: Supple with no jugular vein distention. CHEST: Symmetrical. HEART: S1, S2. No S3. Regular. LUNGS: Diminished breath sounds at both bases. No wheezing. GASTROINTESTINAL: Soft, nontender with no organomegaly. EXTREMITIES: 1+ pedal edema. SKIN: Clear with no skin rashes, no cyanosis. NEUROLOGIC: Lethargic limited at present time. LABORATORY DATA: WBC is 11.0, hemoglobin of 9.8. Platelet count is 98,000. ASSESSMENT: 1. Sepsis syndrome. 2. Wound infection. 3. Respiratory failure. 4. DNR/DNI status. I discussed the patient's condition at length with both emergency medical service manager as well as ICU attending, Dr Chata Caruso. The patient is remaining critical. She still has positive blood cultures for resistant organ isms. Concern is for endocarditis; however, due to of critical condition, transesophageal echocardio gram can be performed only if the patient gets intubated, Otherwise, she will continue with empiric antibiotic therapy, nebulizer treatment, BiPAP, and all the supportive measures. Clem Ibarra MD cc: [id number] TT: 03/09/2017 09:31:19 Confirmation # [id number] Dictation # [id number] halley
[2017-03-09] MEDS: Levothyroxine 112 MCG TAB PO SCH (09:43)
[2017-03-09] MEDS: Calcium-Vit D 250 mg-125 Units Tab UD PO SCH (09:44)
--- NOTE | 2017-03-09 10:00 | RAD ---
HISTORY: f/u COMPARISON: 03/08/2017 FINDINGS: LUNGS: Right lower lobe infiltrate and right-sided effusion PLEURA: Right-sided effusion CARDIOVASCULAR: Moderate cardiomegaly OSSEOUS STRUCTURES: No significant abnormalities. VISUALIZED UPPER ABDOMEN: Normal. OTHER FINDINGS: None. IMPRESSION: Right-sided infiltrate and effusion unchanged
[2017-03-09 13:03] LABS: ADD MANUAL DIFF? NO
[2017-03-09 13:05] LABS: BASO # 0.01 K/mm3 (0.0-2.0); BASO % 0.1 % (0.0-3.0); EOS % 0.3 % (1.5-5.0); GRAN # 9.02 (1.4-6.5); GRAN % 85.8 % (50.0-68.0); HEMATOCRIT 29.2 % (36.0-48.0); LYMPH # 1.1 (1.2-3.4); LYMPH % 10.1 % (22.0-35.0); MEAN CELL VOLUME 86.1 fL (80.0-105.0); MEAN CORPUSCULAR HEMOGLOBIN 29.2 pg (25.0-35.0); MEAN CORPUSCULAR HGB CONC 33.9 g/dl (31.0-37.0); MONO # 0.4 (0.1-0.6); MONO % 3.7 % (1.0-6.0); PLATELET COUNT 79 10^3/uL (120.0-450.0); RED CELL DISTRIBUTION WIDTH 18.7 % (11.5-14.5); WHITE BLOOD COUNT 10.5 10^3/ul (4.5-11.0)
[2017-03-09 13:06] LABS: VENOUS BLOOD GAS BASE EXCESS 6.6 mmol/L (0.0-2.0)
[2017-03-09 13:28] LABS: ALB/GLOB RATIO 0.7 (1.1-1.8); ALKALINE PHOSPHATASE 256 U/L (38-133); ALT/SGPT 44 U/L (7-56); AST/SGOT 52 U/L (15-39); BILIRUBIN,TOTAL 1.6 mg/dL (0.2-1.3); BLOOD UREA NITROGEN 9 mg/dL (7-21); CARBON DIOXIDE 24 mmol/L (21-33); CHLORIDE 107 mmol/L (98-107); GFR AFRICAN-AMERICAN > 60; GLUCOSE,RANDOM 91 mg/dL (70-110); MAGNESIUM 1.5 mg/dL (1.7-2.2); POTASSIUM 3.1 mmol/L (3.6-5.0); SODIUM 140 mmol/L (132-148); TOTAL PROTEIN 5.8 g/dL (5.8-8.3)
[2017-03-09 13:29] LABS: CALCIUM 5.4 mg/dL (8.4-10.5)
[2017-03-09] MEDS: Albuterol-Ipratrop 3 mg / 0.5 (3 ml) UD IH SCH ×2 (13:39→19:51)
--- NOTE | 2017-03-09 13:54 | PN ---
DATE: 03/09/2017 The patient is in bed in no acute distress, nontoxic; however, chronically ill, debilitated and weak with fevers. PHYSICAL EXAMINATION: VITAL SIGNS: Temperature is 101.3 and heart rate of 109, blood pressure is 170/80. HEENT: Unremarkable. NECK: Supple. LUNGS: Have decreased breath sounds. HEART: Normal S1, S2. ABDOMEN: Soft, nontender. LABORATORY DATA: Reveals a white count of 11,000, hemoglobin of 9, platelets noted. BUN of 9, creat inine of 0.6. Microbiology reveals the stool for C. diff is negative, antigen negative toxin. Repea t blood cultures are still positive for VRE. The blood cultures from 03/08 are coming back positive again. ASSESSMENT AND PLAN: A 66-year-old female was seen with severe sepsis, status post ventilator depend ent respiratory failure, now extubated with persistent vancomycin-resistant Enterococci bacteremia, s tatus post Port-A-Cath removal and colitis, stage IV colon cancer, status post resection on 02/08. T he patient is currently on daptomycin and meropenem with persistent vancomycin-resistant Enterococci bacteremia, now patient is a DNR and DNI. Adrienne Hernandez's note is reviewed. Dr. Esqueda's note fro m today is reviewed. Dr. Caruso's note is reviewed. Dr. Ordonez's note is reviewed. Chest x-ray was don e, shows the right-sided infiltrate and effusion unchanged. Dr. Fernandez's note is reviewed. Dr. Philip squires's note is reviewed from yesterday. ASSESSMENT AND PLAN: This is a 66-year-old female with severe sepsis, status post ventilatory depend ent respiratory failure, now extubated, comfortable; however, continues to deteriorate slowly and wit h persistent vancomycin-resistant Enterococcus bacteremia and possible endocarditis. High risk for t ransesophageal echocardiogram. The patient with stage IV colon cancer status post resection. Would consider hospice setting for this patient and should consider discontinuing the antibiotics and all f utile care and hospice evaluation and supportive care only. Prognosis is poor. Larry Toledo MD cc: [id number] TT: 03/09/2017 13:53:11 Confirmation # [id number] Dictation # [id number] dn
[2017-03-09 17:34] LABS: URINE BILIRUBIN NEGATIVE (NEGATIVE); URINE BLOOD SMALL (NEGATIVE); URINE GLUCOSE (UA) NEGATIVE (NEGATIVE); URINE KETONE NEGATIVE (NEGATIVE); URINE LEUKOCYTE ESTERASE SMALL Leu/uL (NEGATIVE); URINE PROTEIN NEGATIVE mg/dL (<30 mg/dL); URINE UROBILINOGEN 0.2 E.U./dL (<1 E.U./dL)
[2017-03-09 17:43] LABS: URINE APPEARANCE CLEAR (CLEAR); URINE COLOR YELLOW (YELLOW)
[2017-03-09 18:01] LABS: URINE AMORPHOUS SEDIMENT FEW; URINE BACTERIA MANY (NEG)
[2017-03-09] MEDS ORDERED: Magnesium Sulfate 2 GM in Sodium Chloride 0.9% 100 ML IVPB ONE (20:00)
[2017-03-09 20:41] VITALS: O2SAT 100
[2017-03-09 22:35] LABS: BLOOD UREA NITROGEN 10 mg/dL (7-21); CARBON DIOXIDE 26 mmol/L (21-33); CHLORIDE 106 mmol/L (98-107); GFR AFRICAN-AMERICAN > 60; GLUCOSE,RANDOM 93 mg/dL (70-110); MAGNESIUM 2.1 mg/dL (1.7-2.2); PHOSPHOROUS 3.8 mg/dL (2.5-4.5); POTASSIUM 3.3 mmol/L (3.6-5.0); SODIUM 140 mmol/L (132-148)
[2017-03-10] MEDS: Metoprolol 1 mg/ml Inj IVP PRN (03:17)
[2017-03-10 05:32] LABS: ARTERIAL BLOOD GAS HCO3 25.3 mmol/L (21-28); ARTERIAL BLOOD GAS O2 CAPACITY 11.3 mL/dl (16-24); ARTERIAL BLOOD GAS PH 7.52 (7.35-7.45); ARTERIAL BLOOD HGB O2 SAT 94.3 % (95.0-98.0); CARBOXYHEMOGLOBIN 2.5 % (0.5-1.5); HHB 2.5 % (0-5); METHEMOGLOBIN 0.7 % (0.0-3.0)
[2017-03-10 05:37] LABS: HEMATOCRIT 24.8 % (36.0-48.0); MEAN CELL VOLUME 86.1 fL (80.0-105.0); MEAN CORPUSCULAR HEMOGLOBIN 28.5 pg (25.0-35.0); MEAN CORPUSCULAR HGB CONC 33.1 g/dl (31.0-37.0); MEAN PLATELET VOLUME 9.7 fl (7.0-11.0); RED CELL DISTRIBUTION WIDTH 18.9 % (11.5-14.5); WHITE BLOOD COUNT 8.4 10^3/ul (4.5-11.0)
[2017-03-10 05:46] LABS: ALB/GLOB RATIO 0.6 (1.1-1.8); ALKALINE PHOSPHATASE 220 U/L (38-133); ALT/SGPT 40 U/L (7-56); AST/SGOT 38 U/L (15-39); BILIRUBIN,TOTAL 1.4 mg/dL (0.2-1.3); BLOOD UREA NITROGEN 11 mg/dL (7-21); CARBON DIOXIDE 27 mmol/L (21-33); CHLORIDE 108 mmol/L (98-107); GFR AFRICAN-AMERICAN > 60; GLUCOSE,RANDOM 119 mg/dL (70-110); MAGNESIUM 1.9 mg/dL (1.7-2.2); SODIUM 142 mmol/L (132-148); TOTAL PROTEIN 5.2 g/dL (5.8-8.3)
[2017-03-10 05:58] LABS: CALCIUM 5.5 mg/dL (8.4-10.5)
[2017-03-10] MEDS: Albuterol-Ipratrop 3 mg / 0.5 (3 ml) UD IH SCH ×3 (07:20→13:43)
--- NOTE | 2017-03-10 07:43 | PN ---
DATE: 03/09/2017 This patient was seen and evaluated earlier. The patient was transfused a unit of blood. Hemoglobin went up to 9.9. However, patient did have spiked fever, T-max of 101. Also, had a short run of SVT . Presently using on BiPAP. PHYSICAL EXAMINATION: VITAL SIGNS: Temperature , blood pressure 132/62. HEENT: Atraumatic, anicteric. NECK: Supple. HEART: S1, S2 heard. LUNGS: Bilateral air entry present. ABDOMEN: Soft. There is no tenderness. EXTREMITIES: No cyanosis, no clubbing. LABORATORY DATA: Hemoglobin 9.9, hematocrit 29.2, WBC 10.5, platelets 79. IMPRESSION: This patient is a 66-year-old patient, status post , status post liver resection, c olon resection, stage IV colon cancer, admitted. The patient admitted with sepsis, vancomycin resist ant Enterococcus, status post removal of the port, has pneumonia, pleural effusion. The patient did have a history of some dark stool, possible melena. no active bleeding since admission. There is a drop in blood count, is being placed. Would recommend to follow up of the hemoglobin, hematocr it. Continue the PPI. The patient has hypocalcemia with hypoalbuminemia, most likely cause for her severe hypocalcemia issue appears to be nutritional deficiency probably. Vitamin D is being, calcium is being replaced. Continue the . She is also getting thyroid supplement. Thank you very much for allowing us to participate in the care of the patient. Jace Fernandez MD cc: [id number] TT: 03/10/2017 07:42:44 Confirmation # [id number] Dictation # [id number] en
--- NOTE | 2017-03-10 08:02 | CP.PCM.PCO ---
<Flakito Ordonez - Last Filed: 03/10/17 08:01> Physician Communication Note - Physician Communication Note Physician Communication Note: R port site CDI, L TLC CDI, abdominal jitendra removed. Cont ICU care <Naren Odonnell - Last Filed: 03/10/17 09:37> Assessment & Plan - Assessment and Plan (Free Text) Assessment: Aury diuresing - on BIPAP - dropping HgB/Platelets(?DIC) Prognosis Guarded(VRE persistence) Broderick Odonnell MD FACS
--- NOTE | 2017-03-10 08:32 | RAD ---
HISTORY: R PNA and R pleural effusion COMPARISON: No prior. FINDINGS: LUNGS: There is slight improvement in the right lower lobe infiltrate and effusion PLEURA: Small right effusion CARDIOVASCULAR: Mild cardiomegaly OSSEOUS STRUCTURES: No significant abnormalities. VISUALIZED UPPER ABDOMEN: Normal. OTHER FINDINGS: Left subclavian line terminates in the right atrium IMPRESSION: Slight improvement in right lower lobe infiltrate and effusion
--- NOTE | 2017-03-10 08:49 | PN ---
DATE: 03/10/2017 The patient was seen and examined in intensive care unit. We evaluated patient together with nurses as well as the infectious disease cosmetic consultant, Dr. Toledo. The patient is receiving daptomycin. She is on inhalation therapy with DuoNeb. She is being maintained on BiPAP 10/5. PHYSICAL EXAMINATION: VITAL SIGNS: Her temperature is 100.8, pulse 102, respirations 36, blood pressure 135/71. Pulse oxi metry is 97 on BiPAP. Intake and output is +300. HEAD, EAR, NOSE AND THROAT: Within normal limits. Oral cavity was not evaluated due to BiPAP applic ation. NECK: Supple with no jugular vein distentions. CHEST: Bilateral basal rhonchi, no wheezing. CARDIOVASCULAR: S1, S2, no S3, irregular. GASTROINTESTINAL: Soft, nontender. No organomegaly. EXTREMITIES: No pedal edema. SKIN: Clear with no skin rashes and no cyanosis. NEUROLOGIC: No focal deficits. LABORATORY DATA: Her WBC is 8.4, hemoglobin of 8.2. Sodium 142, potassium reduced at 3.0. Arterial blood gas was done this morning -- pH is 7.52, pCO2 of 31 and pO2 of 68. Chest x-ray was just done and will be reviewed. Chest x-ray shows mild bilateral congestive changes and atelectatic changes at both lung bases. There is opacity in the right middle lobe without air br onchogram. This is part of her atelectasis. ASSESSMENT AND PLAN: 1. Severe sepsis with resistant organisms 2. Respiratory failure, recurrent. 3. Severe hypoxia. 4. Wound infection. 5. DO NOT RESUSCITATE/DO NOT INTUBATE status. I discussed patient's condition with ICU team as well as Dr. Toledo. The patient's condition rem ains critical. Her blood gas is acceptable on BiPAP and her oxygen saturation is good. She shows si gns of respiratory alkalosis which is typical for sepsis, but she still requires BiPAP because she ca nnot sustain the work of breathing. We will continue with application of BiPAP. She is a DNR/DNI st atus. No CHIP is planned. We will continue with current intervention. Clem Ibarra MD cc: [id number] TT: 03/10/2017 08:48:47 Confirmation # [id number] Dictation # [id number] sn
--- NOTE | 2017-03-10 09:02 | PN ---
DATE: 03/10/2017 SUBJECTIVE: The patient is resting in bed with the BiPAP on this morning. No new complaints. The p atient has good O2 saturation and no nausea, vomiting, no diarrhea. The patient is still in ____ iso lation. PHYSICAL EXAMINATION: VITAL SIGNS: Note that she is afebrile with a pulse of 102 and respirations of 18. BP is 135/71. HEENT: Head is atraumatic, normocephalic. Eyes reactive to light. Ears, nose and throat seem to be within normal limits. NECK: Supple. No JVD, no thyroid enlargement, no lymph nodes. CARDIOVASCULAR: Heart has a regular rate and rhythm. Normal S1, S2. LUNGS: Reveal decreased breath sounds at the bases with occasional rhonchi. ABDOMEN: Soft. Decreased bowel sounds. GENITALIA AND RECTAL: Deferred. MUSCULOSKELETAL: No joint deformities. EXTREMITIES: Reveal positive lower extremity edema. NEUROLOGIC: She seemed to be grossly intact. LABORATORY DATA: Her white count is 8.4, hemoglobin is 8.2, hematocrit 24.8 with platelets of 53,000 . Arterial blood gas revealed pH of 7.52, pCO2 of 31, pO2 of 68. Her sodium is 142, potassium 3.0, chloride 108, CO2 of 27 with a BUN of 11, creatinine of 0.6 and a random glucose of 119. Note that t he patient is hypocalcemic with a calcium of 5.5. IMPRESSION: The patient has colon cancer stage IV and is post chemotherapy. She has sepsis with van comycin-resistant Enterococcus and is noted to have respiratory failure with bilateral pleural effusi ons and right-sided pneumonia. The patient has atrial fibrillation as well as noted that, as per the patient, she is a DO NOT RESUSCITATE/DO NOT INTUBATE. PLAN: We will continue with BiPAP and respiratory support. We will be aggressive with our pulmonary toilet and continue calcium gluconate to correct the hypocalcemia. The patient is on DuoNeb, subQ h eparin, Synthroid, Protonix and Lopressor. We will continue to treat aggressively along with the ot er consultants and the primary care doctor. Alonso Caruso MD cc: [id number] TT: 03/10/2017 09:01:25 Confirmation # [id number] Dictation # [id number] sn
[2017-03-10] MEDS: Levothyroxine 112 MCG TAB PO SCH (09:13)
[2017-03-10] MEDS: Calcium-Vit D 250 mg-125 Units Tab UD PO SCH (09:14)
[2017-03-10] MEDS ORDERED: cefTRIAXone 2 GM IN NS 2 GM/100 ML BAG IVPB SCH (09:30)
--- NOTE | 2017-03-10 09:41 | PN ---
DATE: 03/10/2017 SUBJECTIVE: The patient is in bed in no acute distress. Was seen earlier in the ICU 128, bed 4. Sh franchesak is awake; however, she is weak. She has continued to have fevers. PHYSICAL EXAMINATION: VITAL SIGNS: Temperature is 100.8, blood pressure is 135/70, respiratory rate of 30, heart rate of 1 05. HEENT: Unremarkable. NECK: Supple. LUNGS: Decreased breath sounds. HEART: Normal S1, S2. ABDOMEN: Soft, nontender. LABORATORY EXAMINATION: Reveals the white count is 8.4, hemoglobin of 8.2 with a platelets of 53,000 . The chemistries reveal a BUN of 11, creatinine of 0.6, and total creatine kinase is 117. Urinalys is is noted. Review of the microbiology reveals the blood cultures from yesterday are persistently p ositive. Every single blood culture has a positive for VRE starting from 03/[address] Caruso's note fr om today is reviewed. Dr. Ibarra's note is reviewed. Dr. Ordonez's note is reviewed. Chest x-ray from this morning is also reviewed. Slight improvement in right lower lobe infiltrate and effusion. ASSESSMENT AND PLAN: A 66-year-old female seen earlier today in 128, bed 4 with severe sepsis, statu s post ventilatory dependent respiratory failure, now extubated with persistent vancomycin-resistant enterococci bacteremia. Must rule out endocarditis. The patient is a poor risk for transesophageal echo. Stage IV colon cancer status post resection. Consider hospice setting for this patient who is end-stage with persistent bacteremia and we will order repeat blood cultures, so I doubt I will be a ble to clear this with antibiotics alone and the patient is at no risk for any surgery. We will cont inue the daptomycin and repeat blood cultures and should consider a hospice setting. Larry Toledo MD cc: [phone] TT: 03/10/2017 09:40:42 Confirmation # [id number] Dictation # [id number] sn
[2017-03-10] MEDS ORDERED: Folic Acid 1 MG in Sodium Chloride 0.9% 50 ML IV SCH (10:00)
--- NOTE | 2017-03-10 14:04 | PN ---
DATE: 03/10/2017 The patient is seen and examined with family at the bedside. Currently is more comfortable than bevickie re, however, is lethargic. No chest pains, no shortness of breath, no nausea, no vomiting. PHYSICAL EXAMINATION: VITAL SIGNS: At this point, blood pressure is 188/87, pulse rate of 76, temperature is 98.6, O2 satu ration is 100% on a nonrebreather mask. HEENT: Normocephalic, atraumatic. Pale conjunctivae, nonicteric sclerae. NECK: No JVD, no thyromegaly. CARDIOVASCULAR: Regular rate and rhythm. S1, S2 noted. LUNGS: Bilateral entry is decreased at the base with scattered rhonchi. ABDOMEN: Nondistended, nontender, positive bowel sounds. EXTREMITIES: Peripheral pulses +2 with no pitting edema. LABORATORIES: Noted as far as WBCs of 8.4, hemoglobin of 8.2, hematocrit of 24.8, platelets of 58. Chemistry: Potassium of 3.8, but the calcium is still decreased at 5.5. ASSESSMENT: 1. Anemia. 2. Hypokalemia. 3. Positive cancer. 4. Bacteremia. 5. Electrolyte dysfunction. PLAN: At this time, we will continue watching her labs. The patient currently on calcium IV as well as Cubicin as well as IV fluids. There was a hospice evaluation put in and we will follow closely. Bandar Vega MD cc: [id number] TT: 03/10/2017 14:03:52 Confirmation # [id number] Dictation # [id number] en
[2017-03-10 14:50] LABS: ARTERIAL BLOOD GAS HCO3 21.3 mmol/L (21-28); ARTERIAL BLOOD GAS PH 7.38 (7.35-7.45)
--- NOTE | 2017-03-10 15:19 | RAD ---
HISTORY: sob COMPARISON: 03/10/2017 at 6:45 a.m. FINDINGS: LUNGS: Right lower lobe infiltrate unchanged PLEURA: No significant pleural effusion identified, no pneumothorax apparent. CARDIOVASCULAR: Mild cardiomegaly mild vascular congestion OSSEOUS STRUCTURES: No significant abnormalities. VISUALIZED UPPER ABDOMEN: Normal. OTHER FINDINGS: None. IMPRESSION: Mild vascular congestion. Right lower lobe infiltrate. No change
--- NOTE | 2017-03-10 17:19 | DS ---
The patient was a 66-year-old female that was admitted to [facility] on 03/01/2017. The patient carried a diagnosis of colon cancer, sepsis, respiratory failure, atrial fibrillation and ple ural effusion. The patient had made herself several days prior a DNR and DNI. She developed respira tory failure with cardiac failure secondary to the sepsis and the colon CA and on 03/10/2017 at 4:04 p.m. Family was at bedside. The patient's certificate was filled out and the ce rtificate case number is [id number]. The family will notify a home. Alonso Caruso MD cc: [id number] TT: 03/10/2017 17:19:13 claudia
[2017-03-10 17:22] VITALS: BP 148/75; PULSE 23; RESP 14
[2017-03-10 17:23] VITALS: TEMP 98.8
--- NOTE | 2017-03-10 21:18 | CP.PCM.PCO ---
Physician Communication Note - Physician Communication Note Physician Communication Note: VRE Sepsis-Bacteremia Persists
[2017-03-12 13:50] LABS: HEPARIN-IND PLATELET AB Negative (Negative); RESULT Negative (Negative)
[2017-03-12 17:13] LABS: UFH SRA RESULT Negative (Negative)
== END 2017-03-10 16:04 | DRG 871 ==
LOC: ED 01:03 → ERH 04:19 → CCU 06:37
PROVIDERS: ADMIT Family Medicine; ATTEND Family Medicine
PROC: 0BH17EZ Insertion of Endotracheal Airway into Trachea, Via Natural or Artificial Opening (ICD-10-PCS; 2017-03-05)
PROC: 3E03328 Introduction of Oxazolidinones into Peripheral Vein, Percutaneous Approach (ICD-10-PCS; 2017-03-05)
PROC: 05H633Z Insertion of Infusion Device into Left Subclavian Vein, Percutaneous Approach (ICD-10-PCS; 2017-03-05)
PROC: 05PYX3Z Removal of Infusion Device from Upper Vein, External Approach (ICD-10-PCS; 2017-03-05)
PROC: 5A1935Z Respiratory Ventilation, Less than 24 Consecutive Hours (ICD-10-PCS; principal; 2017-03-05 12:00)
PROC: 3E0F7GC Introduction of Other Therapeutic Substance into Respiratory Tract, Via Natural or Artificial Opening (ICD-10-PCS; 2017-03-07)
PROC: 5A09457 Assistance with Respiratory Ventilation, 24-96 Consecutive Hours, Continuous Positive Airway Pressure (ICD-10-PCS; 2017-03-08)
DX: A41.81 Sepsis due to Enterococcus (principal); J18.9 Pneumonia, unspecified organism; R65.21 Severe sepsis with septic shock; J96.01 Acute respiratory failure with hypoxia; I21.4 Non-ST elevation (NSTEMI) myocardial infarction; I13.0 Hypertensive heart and chronic kidney disease with heart failure and stage 1 through stage 4 chronic kidney disease, or unspecified chronic kidney disease; J44.0 Chronic obstructive pulmonary disease with (acute) lower respiratory infection; C78.7 Secondary malignant neoplasm of liver and intrahepatic bile duct; I50.9 Heart failure, unspecified; K57.92 Diverticulitis of intestine, part unspecified, without perforation or abscess without bleeding; E87.2 Acidosis; C18.9 Malignant neoplasm of colon, unspecified; I47.1 Supraventricular tachycardia; E86.0 Dehydration; I48.91 Unspecified atrial fibrillation; D64.9 Anemia, unspecified; N18.9 Chronic kidney disease, unspecified; F17.210 Nicotine dependence, cigarettes, uncomplicated; K52.9 Noninfective gastroenteritis and colitis, unspecified; I27.2 Other secondary pulmonary hypertension; E87.6 Hypokalemia; E83.51 Hypocalcemia; G43.909 Migraine, unspecified, not intractable, without status migrainosus; E61.1 Iron deficiency; E83.42 Hypomagnesemia; E03.9 Hypothyroidism, unspecified; Z66 Do not resuscitate; Z51.5 Encounter for palliative care; Z96.653 Presence of artificial knee joint, bilateral; Z90.49 Acquired absence of other specified parts of digestive tract